=== PATIENT | male | born 1965 | race Caucasian/White ===

== ENCOUNTER 2017-09-07 12:28 | Day surgery (SDC) | payer OTHER ==
[2017-09-07] MEDS ORDERED: LR 1,000 ML IV (12:45)
[2017-09-07] MEDS ORDERED: PROPOFOL 200 MG/20 ML VIAL As Ordered (12:56)
[2017-09-07] MEDS ORDERED: LIDOCAINE 2% INJ 100 MG/5 ML SDV (FOR ANES.) As Ordered (12:59)
[2017-09-07] MEDS ORDERED: MIDAZOLAM INJ 2 MG/2 ML VIAL (J2250) As Ordered (13:53)
[2017-09-07] MEDS ORDERED: fentaNYL 100 MCG/2 ML INJECTION (J3010) As Ordered (13:58)
[2017-09-07] MEDS ORDERED: diphenhydrAMINE INJ 50MG/ML VIAL (J1200) As Ordered (14:10)
== END 2017-09-07 16:20 | disposition home or self-care (01) ==
LOC: M OPP 12:28
DX: Z12.11 Encounter for screening for malignant neoplasm of colon (principal); Z53.9 Procedure and treatment not carried out, unspecified reason

== ENCOUNTER → 2018-01-12 | Outpatient (CLI) | payer OTHER | LOC: M SLEEP 19:42 | DX: G47.33 Obstructive sleep apnea (adult) (pediatric) (principal) | CPT/HCPCS: 95810 ==

== ENCOUNTER 2018-04-20 06:54 | Day surgery (SDC) | payer OTHER ==
[2018-04-20] MEDS: NS 1,000 ML IV (07:10)
[2018-04-20] MEDS ORDERED: MIDAZOLAM INJ 2 MG/2 ML VIAL (J2250) As Ordered ×4 (08:27→08:36)
[2018-04-20] MEDS ORDERED: fentaNYL 100 MCG/2 ML INJECTION (J3010) As Ordered (08:28)
== END 2018-04-20 09:37 | disposition home or self-care (01) ==
LOC: M OPP 06:54
DX: Z12.11 Encounter for screening for malignant neoplasm of colon (principal); K64.0 First degree hemorrhoids; K62.1 Rectal polyp; E78.00 Pure hypercholesterolemia, unspecified; K21.9 Gastro-esophageal reflux disease without esophagitis; R56.9 Unspecified convulsions; M17.0 Bilateral primary osteoarthritis of knee; M06.862 Other specified rheumatoid arthritis, left knee; M06.861 Other specified rheumatoid arthritis, right knee; Z79.82 Long term (current) use of aspirin; Z79.891 Long term (current) use of opiate analgesic; Z79.899 Other long term (current) drug therapy; Z87.891 Personal history of nicotine dependence; Z90.49 Acquired absence of other specified parts of digestive tract
CPT/HCPCS: 45385

== ENCOUNTER 2018-08-07 02:16 | Emergency (ER) | payer OTHER ==
[~2018-08-07] VITALS: Ht 175.3 cm; Wt 93.6 kg
[~2018-08-07 02:16] MED LIST: ACET-683 PO; ASPI81TA85 PO; ATOR80TA59 PO; COLA100C5 PO; ERGO500014 PO; FLUTISP; METH5TA PO; MONT10TA2 PO; NALO4SY IM; OMEP20TA PO; OXYC-517 PO; ROSU40TA3 PO; TEAR1SOL3 OU; TOPI50TA9 PO; VITA100072 PO; VITA200028 PO; ZYRT10CA PO
[2018-08-07] MEDS ORDERED: CETI10TA PO (02:29)
[2018-08-07] MEDS: NORCO, ANEXSIA 5/325MG TABLET (HYDROcodone/ACETAMINOPHEN) PO ONE (04:38)
[2018-08-07] MEDS: PHENobarbital 30 MG TAB PO ONE (04:38)
[2018-08-07 04:41] VITALS: BP 130/69
== END 2018-08-07 04:46 | disposition home or self-care (01) ==
LOC: M ED 02:16
DX: F19.288 Other psychoactive substance dependence with other psychoactive substance-induced disorder (principal); K21.9 Gastro-esophageal reflux disease without esophagitis; E78.5 Hyperlipidemia, unspecified

== ENCOUNTER → 2019-08-15 | Outpatient (CLI) | payer OTHER ==
[~2019-08-15] MED LIST changes: +CETI10TA PO; -ERGO500014 PO; -MONT10TA2 PO; +MONT10TA4 PO; +OMEP-358 PO; -OMEP20TA PO; -ROSU40TA3 PO; +ROSU40TA4 PO; +VITA100018 PO; -VITA100072 PO; +VITA500045 PO
--- NOTE | 2019-08-18 01:01 | ECWPNPC ---
PATIENT NAME: EL LUCAS : 1965 GENDER: MALE VISIT DATE: 08/15/2019 DISCHARGE DATE: 08/15/19 165 VISIT LOCKED DATE TIME: PHYSICIAN: RISHI VAZQUEZ MD RESOURCE: RISHI VAZQUEZ MD REASON FOR APPOINTMENT 1. KNEE PAIN HISTORY OF PRESENT ILLNESS NEW PATIENT CONSULT: WHEN DID YOUR PAIN FIRST START? . BRIEFLY DESCRIBE HOW YOUR PAIN STARTED? . HOW DOES YOUR PAIN CHANGE WITH TIME? . DOES YOUR PAIN AWAKEN YOU FROM SLEEP? . HOW MANY HOURS OF SLEEP DO YOU NORMALLY GET? . ANY DIAGNOSTIC TESTING? . FACILITY WHERE TESTS WERE DONE? ____. PAIN TREATMENT TREATMENT YES CANCER HAVE YOU EVER HAD ANY TYPE OF CANCER?NO NO. 54 YEAR OLD MALE PATIENT WITH A HISTORY OF CHRONIC BILATERAL KNEE PAIN. THE PATIENT DESCRIBES THE PAIN ACHING, BURNING, STABBING, SHOOTING, TENDER, AND CONTINUOUS WITH A PAIN SCORE OF 4-10/10 DEPENDING ON PHYSICAL ACTIVITY. THE PATIENT STATES HE HAS BEEN SUFFERING FROM THIS PAIN FOR MANY YEARS AND HAS HAD 6 RIGHT AND 5 LEFT KNEE SURGERIES DONE IN THE PAST, BUT HIS PAIN PERSISTS. THE PATIENT WAS INFORMED BY HIS SURGEON THAT CURRENTLY THEY SHOULD HOLD OFF ON ANY SURGERIES. THE PATIENT SAYS HIS PAIN IS AFFECTING HIS ABILITY TO MOVE AROUND, CLEAN HIS HOME, AND ENJOY AN ACTIVE LIFESTYLE. THE PATIENT SAYS HIS PAIN INCREASES WITH ACTIVITIES. PATIENT DENIES UNEXPLAINABLE WEIGHT LOSS, FEVER, CHILLS, NEW CHANGES ON HIS URINARY OR BOWEL CONTROL. PAIN SCREENING: PATIENT HAS A COMPLAINT OF ACUTE OR CHRONIC PAIN :YES FALL RISK SCREENING: SCREENING : NO FALLS IN THE PAST YEAR. DELCID INVENTORY: QUESTIONNAIRE ASSESSEDTBD SCORE VALUE CALCULATED TBD CURRENT MEDICATIONS TAKING ACETAMINOPHEN 500 MG CAPSULE 1 CAPSULE NEEDED ORALLY EVERY 6 HRS TAKING ASPIRIN 81 MG TABLET CHEWABLE DIRECTED ORALLY TAKING CARBOXYMETHYLCELLULOSE SOD PF 0.5 % SOLUTION DIRECTED OPHTHALMIC TAKING CETIRIZINE HCL 10 MG TABLET 1 TABLET ORALLY ONCE A DAY TAKING COLACE 100 MG CAPSULE 1 CAPSULE NEEDED ORALLY ONCE A DAY TAKING IRON 325 (65 FE) MG TABLET 1 TABLET ORALLY ONCE A DAY TAKING FLONASE ALLERGY RELIEF 50 MCG/ACT SUSPENSION 1 SPRAY IN EACH NOSTRIL NASALLY ONCE A DAY TAKING OMEPRAZOLE 40 MG CAPSULE DELAYED RELEASE 1 CAPSULE 30 MINUTES BEFORE MORNING MEAL ORALLY ONCE A DAY TAKING OXYCODONE HCL 10 MG TABLET 1 TABLET NEEDED ORALLY EVERY 6 HRS TAKING ROPINIROLE HCL 1 MG TABLET 1 TABLET 1 TO 3 HOURS BEFORE BEDTIME ORALLY ONCE A DAY TAKING ROPINIROLE HCL 2 MG TABLET 1 TABLET 1 TO 3 HOURS BEFORE BEDTIME ORALLY ONCE A DAY TAKING VITAMIN C 250 MG TABLET CHEWABLE 1 TABLET ORALLY ONCE A DAY TAKING ROSUVASTATIN CALCIUM 40 MG TABLET 1 TABLET ORALLY ONCE A DAY MEDICATION LIST REVIEWED AND RECONCILED WITH THE PATIENT PAST MEDICAL HISTORY GERD RESTLESS LEG SYNDROME HIGH CHOLESTEROL BILAT KNEE PAIN BILAT SHOULDER PAIN LUMBOSACRAL OR CERVICAL STRAIN LOW IRON ALLERGIES DULOXETINE HCL: UNSURE - ALLERGY GABAPENTIN: IMPOTENCE - SIDE EFFECTS GEMFIBROZIL: UNSURE - ALLERGY SURGICAL HISTORY RIGHT KNEE REPAIR X6 LEFT KNEE SURGERY X5 RIGHT RIB REMOVED CHOLECYSTECTOMY LEFT BREAST LUMPECTOMY FAMILY HISTORY FATHER: 59 YRS, CVA MOTHER: 35 YRS, INTERNAL BLEEDING 2 BROTHER(S) , 1 SISTER(S) - HEALTHY. 2 SON(S) - HEALTHY. SOCIAL HISTORY GENERAL: TOBACCO USE ARE YOU A:FORMER SMOKER HOW LONG HAS IT BEEN SINCE YOU LAST SMOKED?> 10 YEARS OTHERS AT HOME: SPOUSE. HOUSING: RENTS APARTMENT. EDUCATION LEVEL OF EDUCATION:NOT FINISHED COLLEGE DIET: REGULAR. LANGUAGE LANGUAGES SPOKEN:YORUBA RECREATIONAL DRUG USE DRUG USE?NO LEARNING BARRIERS / SPECIAL NEEDS BARRIERS TO LEARNING?NO HEARING IMPAIRED?NO VISION IMPAIRED?YES :CORRECTIVE LENSES COGNITIVELY IMPAIRED?NO READINESS TO LEARN?YES LEARNING PREFERENCES?NO LEARNING CAPABILITIES PRESENT?YES EMOTIONAL BARRIERS?NO SPECIAL DEVICES?YES :[facility] PFS, CLERGY, PUBLIC HEALTH REFERRALS HAS THE PATIENT BEEN EDUCATED REGARDING HIS/HER PLAN OF CARE?YES HAS THE PATIENT BEEN EDUCATED REGARDING PAIN, THE RISK FOR PAIN, THE IMPORTANCE OF EFFECTIVE PAIN MANAGEMENT, AND THE PAIN ASSESSMENT PROCESS?YES PFS REFERRAL NEEDED?NO CLERGY REFERRAL NEEDED?NO PUBLIC HEALTH REFERRAL NEEDED?NO WAS THE PROVIDER NOTIFIED OF ANY PERTINENT INFO?NO LATEX QUESTIONNAIRE LATEX ALLERGY : HAVE YOU EVER DEVELOPED ANY TYPE OF REACTION AFTER HANDLING LATEX PRODUCTS SUCH RUBBER GLOVES, CONDOMS, DIAPHRAGMS, BALLOONS, SOCKS, OR UNDERWEAR?NO LATEX ALLERGY : HAVE YOU EVER DEVELOPED ANY TYPE OF REACTION DURING OR AFTER DENTAL APPOINTMENT, VAGINAL/RECTAL EXAMINATION, SURGICAL PROCEDURE, OR ANY OTHER EXPOSURE?NO LATEX RISK : HAVE YOU EVER HAD ANY DIFFICULTY BREATHING OR HIVES AFTER EATING OR HANDLING ANY FRUITS, OR VEGETABLES; SUCH KIWI, BANANAS, STONE FRUITS, OR CHESTNUTSNO LATEX RISK : DO YOU HAVE A PREVIOUS PERSONAL HISTORY OF MORE THAN NINE SURGERIES, SPINA BIFIDA, OR REPEATED CATHERIZATIONS? NO LATEX RISK : ARE YOU FREQUENTLY EXPOSED TO LATEX PRODUCTS IN YOUR OCCUPATION?NO DATE ASKED : 08/08/2019 CAFFEINE CAFFEINE USE?YES HOW OFTEN AND HOW MUCH? 2/DAY COKE ADVANCE DIRECTIVE ADVANCE DIRECTIVE DISCUSSED WITH PATIENT:YES DECLINED TENRIISM [id number] YARSANISM MARITAL STATUS: . ALCOHOL SCREENING DID YOU HAVE A DRINK CONTAINING ALCOHOL IN THE PAST YEAR?NO POINTS0 INTERPRETATIONNEGATIVE OCCUPATION: DISABLED. PRE-SCREENING CALL DONE. 08/08/19 EM. HOSPITALIZATION/MAJOR DIAGNOSTIC PROCEDURE SURGERIES REVIEW OF SYSTEMS REVIEWED BY: PROVIDER: RISHI VAZQUEZ MD . CONSTITUTIONAL: ANY CHANGE IN YOUR MEDICAL CONDITION? NO . CHILLS NO . FEVER NO . INFECTION: DO YOU HAVE NEW INFECTIONS? NO . DO YOU HAVE HISTORY OF MRSA? NO . MUSCULOSKELETAL: ANY NEW PATTERNS OF PAIN OR NUMBNESS? NO . SYTEMIC LUPUS NO . GASTROENTEROLOGY: ANY NEW CHANGE IN BOWEL CONTROL? NO . BARRETTS ESOPHAGUS NO . CIRRHOSIS NO . HEPATITIS NO . LIVER FAILURE NO . ACID REFLUX YES . UNEXPLAINED WEIGHT LOSS NO . GENITOURINARY: ANY NEW CHANGE IN BLADDER CONTROL? NO . IS THERE A CHANCE YOU COULD BE ? NO . HEMATOLOGY/LYMPH: DO YOU TAKE ANY BLOOD THINNERS? (FOR EXAMPLE- COUMADIN, PLAVIX, AGGRENOX, PLATEL, PRADAXA, OR XARELTO) NO . WHEN WAS YOUR LAST DOSE? DATE: TIME: . LOW PLATELET COUNT NO . SICKLE CELL DISEASE NO . VON WILLIEBRANDS NO . FACTOR V LEIDEN NO . THALLASEMIA NO . ANEMIA NO . EASY BRUISING NO . NEUROLOGY: HAVE YOU FALLEN IN THE PAST 12 MONTHS? NO . ANY NEW EXTREMITY NUMBNESS OR WEAKNESS? NO . HEAD INJURY NO . DEMENTIA NO . CEREBRAL PALSY NO . MULTIPLE SCLEROSIS NO . DIZZINESS NO . HEADACHE NO . STROKES NO . VERTIGO NO . CARDIOLOGY: DO YOU HAVE A PACEMAKER OR DEFIBRILLATOR? NO . ANGINA NO . HEART ATTACK NO . HEART SURGERY NO . CONGESTIVE HEART FAILURE/FLUID OVERLOAD NO . CHEST PAIN NO . HIGH BLOOD PRESSURE NO . IRREGULAR HEART BEAT NO . RESPIRATORY: HAVE YOU BEEN SICK IN THE PAST WEEK? NO . FEVER NO . FLU LIKE SYMPTOMS? NO . CPAP NO . BYPAP NO . ASTHMA NO . EMPHYSEMA NO . CHRONIC LUNG DISEASES NO . SHORTNESS OF BREATH ON EXERTION NO . DO YOU USE ANY TYPE OF TOBACCO (SMOKE, SMOKELESS, CHEW)? NO . COUGH NO . SNORING NO . INTEGUMENTARY: DO YOU HAVE ANY RASHES OR OPEN SORES? NO . ALLERGIC/IMMUNO: ARE YOU ALLERGIC TO IV DYE? NO . ANY NEW ALLERGIES? NO . PSYCHIATRIC: DO YOU HAVE THOUGHTS OF HURTING YOURSELF OR SOMEONE ELSE? NO . ARE YOU ABUSED, NEGLECTED, OR IN AN UNSAFE ENVIRONMENT? NO . ENDOCRINOLOGY: ARE YOU DIABETIC? NO . THYROID DISORDER NO . OTHER: DO YOU NEED ANY PRESCRIPTIONS? NO . IF YES, PLEASE LIST: ____ . ANY NEW PROBLEMS WITH YOUR MEDICATIONS? NO . WHEN DID YOU LAST EAT? ____ . WHEN DID YOU LAST DRINK? ____ . WHAT DID YOU LAST DRINK? ____ . NAME OF PERSON DRIVING YOU HOME? ____ . DO YOU HAVE ANY OTHER QUESTIONS OR CONCERNS NO . VITAL SIGNS WT 210.2 LBS, HT 59 IN, BMI 42.45 INDEX, BP 118/67 MM HG, HR 76 /MIN, RR 18 /MIN, TEMP 98.6 F, OXYGEN SAT % 97%, NA INITIALS [id number], REVIEWED BY: GEORGE. EXAMINATION GENERAL EXAMINATION: PATIENT IS ALERT O X 3 AND COOPERATIVE. LUNGS CLEAR, TO AUSCULTATION. HEART: NO MURMURS OR GALLOPS; FACIAL CRANIAL NERVES ARE GROSSLY NORMAL. GOOD SYMMETRY OF FACIAL MUSCLE MOVEMENT. NORMAL VISUAL LUQUE. PATIENT IS USING A CANE TO AMBULATE, WHICH HE HOLDS IN HIS RIGHT HAND. WALK IS ANTALGIC. PATIENT IS LIMPING FROM HIS RIGHT LEG. HYPERPATHIA OVER BOTH KNEES. TWO-INCH SURGICAL SCAR PRESENT OVER THE FRONT OF RIGHT KNEE AND 2.5-INCH SURGICAL SCAR OVER FRONT OF LEFT KNEE. CREPITANCE WITH MOVEMENT OF BOTH KNEES. MRI OF LEFT KNEE DONE ON 02/23/2019 SHOWS CHONDROMALACIA AND JOINT EFFUSION. ASSESSMENTS OTHER CHRONIC PAIN - G89.29 (PRIMARY) PAIN IN RIGHT KNEE - M25.561 PAIN IN LEFT KNEE - M25.562 OSTEOARTHRITIS OF BOTH KNEES, UNSPECIFIED OSTEOARTHRITIS TYPE - M17.0 TREATMENT OTHER CHRONIC PAIN [facility] MRI KNEE WITHOUT [id number] CLINICAL NOTES: WE DISCUSSED SEVERAL ISSUES WITH MR. LUCAS'S PAIN MANAGEMENT CASE. I DISCUSSED WITH THE PATIENT THAT HE IS A CANDIDATE FOR COOL RADIOFREQUENCY IN THE FUTURE. FOR NOW, I WILL ORDER FOR A RIGHT KNEE MRI TO BE DONE IN PREPARATION FOR THE COOL RADIOFREQUENCY, SINCE THE PATIENT HAS NOT HAD ANY RECENT STUDIES DONE FOR THE RIGHT KNEE. THE PATIENT WILL FOLLOW UP WITH ME IN 6 WEEKS TO GO OVER THE MRI RESULTS AND DISCUSS FURTHER OPTIONS. INSTRUCTIONS WERE GIVEN, QUESTIONS WERE ANSWERED, PATIENT REPORTS UNDERSTANDING AND AGREES WITH THE PLAN. I, DARYA ALMONTE, DOCUMENTED THE ABOVE INFORMATION ACTING A SCRIBE FOR DR. VAZQUEZ. I HAVE REVIEWED THE ABOVE DOCUMENT, WRITTEN BY DARYA ALMONTE SCRIBCiaran AND I VERIFY THAT IT IS ACCURATE. DEAR DR. AMIN: THANK YOU FOR YOUR KIND REFERRAL OF EL LUCAS. IF YOU WANT TO DISCUSS HIS CASE WITH ME PLEASE CALL ME AT THE PAIN CENTER AT [phone]. SINCERELY, RISHI VAZQUEZ MD PAIN MEDICINE . PAIN IN RIGHT KNEE [facility] MRI KNEE WITHOUT [id number] PROCEDURE CODES FA211 ESTABILISHED PATIENT [facility] FACILITY CHARGE G8427 CURRENT MEDS W/DOSAGES DOCUMENTED G8730 PAIN ASSESS POS TOOL F/U PLAN DOC DISPOSITION & COMMUNICATION FOLLOW UP 6 WEEKS (REASON: ORDER RT KNEE MRI, PT CANDIDATE FOR COOL RF, F/UP WITH DR Garcia) ELECTRONICALLY SIGNED BY RISHI VAZQUEZ MD, MD ON 08/17/2019 AT 03:23 PM EST DISCLAIMER : THIS IS A VISIT SUMMARY EXTRACTED FROM THE [employer] CHART. IT IS NOT A COPY OF THE [employer] PROGRESS NOTE. [email or web address]
== END ==
LOC: M PAIN 14:00
PROVIDERS: ATTEND Anesthesiology
DX: G89.29 Other chronic pain (principal); M25.561 Pain in right knee; M25.562 Pain in left knee; M17.0 Bilateral primary osteoarthritis of knee

== ENCOUNTER → 2019-08-25 | Outpatient (CLI) | payer OTHER ==
--- NOTE | 2019-08-25 17:30 | REP ---
MRI right knee without contrast: History: Right knee pain. Comparison radiographs October 13, 2005. Technique: Axial, coronal and sagittal imaging planes are utilized. Proton density and T2-weighted scans are obtained with and without fat saturation in the usual fashion. MRI findings: There is a small subcortical cyst in the lateral tibial plateau 5 mm in diameter. Cortical and medullary bone signal intensity are otherwise normal. There are large spurs at the superior and inferior pole of the patella at the quadriceps and patellar tendon insertion sites respectively consistent with chronic patellar and quadriceps tendonitis. The patellar tendon is diffusely thickened although it shows homogeneous low T1 and T2-weighted signal. There is some edema in the prepatellar tendon soft tissues. There is a very small Calvin's cyst and a small joint effusion is seen in the right knee. Medial and lateral patellar retinacula structures appear intact. There is moderate chondromalacia patella diffusely. A fairly shallow femoral trochlear notch is seen. There is also moderate chondromalacia in the tibial plateau medially and laterally and to a slightly lesser extent in the medial and lateral femoral condyles. No medial or lateral meniscal tear is seen. Anterior and posterior cruciate ligaments appear intact. There is no evidence of medial or lateral collateral ligament disruption. Impression: Moderate three compartment chondromalacia. Most pronounced in the patellofemoral compartment. Shallow femoral trochlear groove. Small joint effusion and Calvin's cyst. There is evidence of chronic quadriceps and patellar tendonitis tendinosis. Osteoarthritic spurring on the patella. Electronically Signed by Hill Lopez MD 08/26/2019 02:23 P
== END ==
LOC: M RAD 15:32
PROVIDERS: ATTEND Anesthesiology
DX: M25.561 Pain in right knee (principal)

== ENCOUNTER → 2019-09-12 | Outpatient (CLI) | payer OTHER ==
--- NOTE | 2019-09-21 00:44 | ECWPNPC ---
PATIENT NAME: EL LUCAS : 1965 GENDER: MALE VISIT DATE: 09/12/2019 DISCHARGE DATE: 09/12/19 1509 VISIT LOCKED DATE TIME: PHYSICIAN: RISHI VAZQUEZ MD RESOURCE: RISHI VAZQUEZ MD REASON FOR APPOINTMENT 1. REVIEW MRI KNEE HISTORY OF PRESENT ILLNESS HISTORY OF PRESENT ILLNESS: PAIN THE PATIENT DESCRIBES THE PAIN... PERMISSION FROM PATIENT WAS RECEIVED TO DO TELEPHONE OFFICE VISITS. 54 YEAR OLD MALE PATIENT WITH A HISTORY OF CHRONIC BILATERAL KNEE PAIN. THE PATIENT DESCRIBES HIS PAIN IT COMES AND GOES, SHARP, STABBING, TENDER WITH A PAIN SCORE OF 7-10/10 DEPENDING ON PHYSICAL ACTIVITY. 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 THE PATIENT SAYS HE HAS HAD SIX RIGHT KNEE AND FIVE LEFT KNEE SURGERIES DONE IN THE PAST, BUT HIS PAIN PERSISTS. THE PATIENT STATES HIS SURGEON SUGGESTED HE TRIES COOL RADIOFREQUENCY FOR HIS BILATERAL KNEE PAIN. PATIENT DENIES UNEXPLAINABLE WEIGHT LOSS, FEVER, CHILLS, NEW CHANGES ON HIS URINARY OR BOWEL CONTROL. FALL RISK SCREENING: SCREENING :NO FALLS REPORTED IN THE LAST YEAR CURRENT MEDICATIONS TAKING ACETAMINOPHEN 500 MG CAPSULE 1 CAPSULE NEEDED ORALLY EVERY 6 HRS TAKING ASPIRIN 81 MG TABLET CHEWABLE DIRECTED ORALLY TAKING CARBOXYMETHYLCELLULOSE SOD PF 0.5 % SOLUTION DIRECTED OPHTHALMIC TAKING CETIRIZINE HCL 10 MG TABLET 1 TABLET ORALLY ONCE A DAY TAKING COLACE 100 MG CAPSULE 1 CAPSULE NEEDED ORALLY ONCE A DAY TAKING IRON 325 (65 FE) MG TABLET 1 TABLET ORALLY ONCE A DAY TAKING FLONASE ALLERGY RELIEF 50 MCG/ACT SUSPENSION 1 SPRAY IN EACH NOSTRIL NASALLY ONCE A DAY TAKING OMEPRAZOLE 40 MG CAPSULE DELAYED RELEASE 1 CAPSULE 30 MINUTES BEFORE MORNING MEAL ORALLY ONCE A DAY TAKING OXYCODONE HCL 10 MG TABLET 1 TABLET NEEDED ORALLY EVERY 6 HRS TAKING ROPINIROLE HCL 1 MG TABLET 1 TABLET 1 TO 3 HOURS BEFORE BEDTIME ORALLY ONCE A DAY TAKING ROPINIROLE HCL 2 MG TABLET 1 TABLET 1 TO 3 HOURS BEFORE BEDTIME ORALLY ONCE A DAY TAKING VITAMIN C 250 MG TABLET CHEWABLE 1 TABLET ORALLY ONCE A DAY TAKING ROSUVASTATIN CALCIUM 40 MG TABLET 1 TABLET ORALLY ONCE A DAY MEDICATION LIST REVIEWED AND RECONCILED WITH THE PATIENT PAST MEDICAL HISTORY GERD RESTLESS LEG SYNDROME HIGH CHOLESTEROL BILAT KNEE PAIN BILAT SHOULDER PAIN LUMBOSACRAL OR CERVICAL STRAIN LOW IRON ALLERGIES DULOXETINE HCL: UNSURE - ALLERGY GABAPENTIN: IMPOTENCE - SIDE EFFECTS GEMFIBROZIL: UNSURE - ALLERGY SURGICAL HISTORY RIGHT KNEE REPAIR X6 LEFT KNEE SURGERY X5 RIGHT RIB REMOVED CHOLECYSTECTOMY LEFT BREAST LUMPECTOMY FAMILY HISTORY FATHER: 59 YRS, CVA MOTHER: 35 YRS, INTERNAL BLEEDING 2 BROTHER(S) , 1 SISTER(S) - HEALTHY. 2 SON(S) - HEALTHY. SOCIAL HISTORY GENERAL: TOBACCO USE ARE YOU A:FORMER SMOKER HOW LONG HAS IT BEEN SINCE YOU LAST SMOKED?> 10 YEARS OTHERS AT HOME: SPOUSE. HOUSING: RENTS APARTMENT. EDUCATION LEVEL OF EDUCATION:NOT FINISHED COLLEGE DIET: REGULAR. LANGUAGE LANGUAGES SPOKEN:NIUEAN NEW PATIENT PAIN DIARY PATIENT DESCRIBES PAIN :IT COMES AND GOES, SHARP, STABBING, TENDER FROM 0-10, WHAT LEVEL IS YOUR PAIN TODAY?7 PRECIPITATING FACTORS ACTIVITY OR WHEN STANDING RECREATIONAL DRUG USE DRUG USE?NO LEARNING BARRIERS / SPECIAL NEEDS BARRIERS TO LEARNING?NO HEARING IMPAIRED?NO VISION IMPAIRED?YES COGNITIVELY IMPAIRED?NO :CORRECTIVE LENSES READINESS TO LEARN?YES LEARNING PREFERENCES?NO LEARNING CAPABILITIES PRESENT?YES EMOTIONAL BARRIERS?NO SPECIAL DEVICES?YES :[facility] PFS, CLERGY, PUBLIC HEALTH REFERRALS HAS THE PATIENT BEEN EDUCATED REGARDING HIS/HER PLAN OF CARE?YES HAS THE PATIENT BEEN EDUCATED REGARDING PAIN, THE RISK FOR PAIN, THE IMPORTANCE OF EFFECTIVE PAIN MANAGEMENT, AND THE PAIN ASSESSMENT PROCESS?YES LATEX QUESTIONNAIRE LATEX ALLERGY : HAVE YOU EVER DEVELOPED ANY TYPE OF REACTION AFTER HANDLING LATEX PRODUCTS SUCH RUBBER GLOVES, CONDOMS, DIAPHRAGMS, BALLOONS, SOCKS, OR UNDERWEAR?NO LATEX ALLERGY : HAVE YOU EVER DEVELOPED ANY TYPE OF REACTION DURING OR AFTER DENTAL APPOINTMENT, VAGINAL/RECTAL EXAMINATION, SURGICAL PROCEDURE, OR ANY OTHER EXPOSURE?NO DATE ASKED : 08/08/2019 LATEX RISK : HAVE YOU EVER HAD ANY DIFFICULTY BREATHING OR HIVES AFTER EATING OR HANDLING ANY FRUITS, OR VEGETABLES; SUCH KIWI, BANANAS, STONE FRUITS, OR CHESTNUTSNO LATEX RISK : DO YOU HAVE A PREVIOUS PERSONAL HISTORY OF MORE THAN NINE SURGERIES, SPINA BIFIDA, OR REPEATED CATHERIZATIONS? NO LATEX RISK : ARE YOU FREQUENTLY EXPOSED TO LATEX PRODUCTS IN YOUR OCCUPATION?NO CAFFEINE CAFFEINE USE?YES HOW OFTEN AND HOW MUCH? 2/DAY COKE ADVANCE DIRECTIVE ADVANCE DIRECTIVE DISCUSSED WITH PATIENT:YES DECLINED MANDAEN [id number] TAOIST MARITAL STATUS: . ALCOHOL SCREENING DID YOU HAVE A DRINK CONTAINING ALCOHOL IN THE PAST YEAR?NO POINTS0 INTERPRETATIONNEGATIVE OCCUPATION: DISABLED. PRE-SCREENING CALL DONE. 08/08/19 EM. HOSPITALIZATION/MAJOR DIAGNOSTIC PROCEDURE SURGERIES REVIEW OF SYSTEMS REVIEWED BY: PROVIDER: RISHI VAZQUEZ MD . CONSTITUTIONAL: ANY CHANGE IN YOUR MEDICAL CONDITION? NO . CHILLS NO . FEVER NO . INFECTION: DO YOU HAVE NEW INFECTIONS? NO . DO YOU HAVE HISTORY OF MRSA? NO . MUSCULOSKELETAL: ANY NEW PATTERNS OF PAIN OR NUMBNESS? NO . GASTROENTEROLOGY: ANY NEW CHANGE IN BOWEL CONTROL? NO . GENITOURINARY: ANY NEW CHANGE IN BLADDER CONTROL? NO . IS THERE A CHANCE YOU COULD BE ? NO . HEMATOLOGY/LYMPH: DO YOU TAKE ANY BLOOD THINNERS? (FOR EXAMPLE- COUMADIN, PLAVIX, AGGRENOX, PLATEL, PRADAXA, OR XARELTO) NO . WHEN WAS YOUR LAST DOSE? DATE: TIME: . NEUROLOGY: HAVE YOU FALLEN IN THE PAST 12 MONTHS? NO . ANY NEW EXTREMITY NUMBNESS OR WEAKNESS? NO . CARDIOLOGY: DO YOU HAVE A PACEMAKER OR DEFIBRILLATOR? NO . RESPIRATORY: HAVE YOU BEEN SICK IN THE PAST WEEK? NO . FEVER NO . FLU LIKE SYMPTOMS? NO . COUGH NO . INTEGUMENTARY: DO YOU HAVE ANY RASHES OR OPEN SORES? NO . ALLERGIC/IMMUNO: ARE YOU ALLERGIC TO IV DYE? NO . ANY NEW ALLERGIES? NO . PSYCHIATRIC: DO YOU HAVE THOUGHTS OF HURTING YOURSELF OR SOMEONE ELSE? NO . ARE YOU ABUSED, NEGLECTED, OR IN AN UNSAFE ENVIRONMENT? NO . ENDOCRINOLOGY: ARE YOU DIABETIC? NO . OTHER: DO YOU NEED ANY PRESCRIPTIONS? NO . IF YES, PLEASE LIST: ____ . ANY NEW PROBLEMS WITH YOUR MEDICATIONS? NO . WHEN DID YOU LAST EAT? ____ . WHEN DID YOU LAST DRINK? ____ . WHAT DID YOU LAST DRINK? ____ . NAME OF PERSON DRIVING YOU HOME? ____ . DO YOU HAVE ANY OTHER QUESTIONS OR CONCERNS NO . EXAMINATION GENERAL EXAMINATION: TELEMEDICINE VISIT. MRI OF THE RIGHT KNEE DONE ON 08/25/2019 SHOWS ARTHRITIS AND COPELAND'S CYST. ASSESSMENTS PAIN IN RIGHT KNEE - M25.561 (PRIMARY) PAIN IN LEFT KNEE - M25.562 OTHER CHRONIC PAIN - G89.29 BILATERAL PRIMARY OSTEOARTHRITIS OF KNEE - M17.0 STATUS POST KNEE SURGERY - Z98.890 TREATMENT PAIN IN RIGHT KNEE CLINICAL NOTES: WE DISCUSSED SEVERAL ISSUES WITH MR. LUCAS'S PAIN MANAGEMENT CASE. I DISCUSSED WITH THE PATIENT ABOUT TRYING DIAGNOSTIC BLOCK'S TO CONSIDER COOL RADIOFREQUENCY ABLATION IN THE FUTURE AT THE KNEES. THE PATIENT WILL FOLLOW UP WITH THE NURSE PRACTITIONER IN 2 MONTHS. I WILL REQUEST FOR A COPY OF THE PATIENT'S LEFT KNEE MRI DONE AT THE [facility]. THE TOTAL TELEPHONE VISIT TIME WAS 7 MINUTES. INSTRUCTIONS WERE GIVEN, QUESTIONS WERE ANSWERED, PATIENT REPORTS UNDERSTANDING AND AGREES WITH THE PLAN. I, DARYA ALMONTE, DOCUMENTED THE ABOVE INFORMATION ACTING A SCRIBE FOR DR. VAZQUEZ. I HAVE REVIEWED THE ABOVE DOCUMENT, WRITTEN BY DARYA ALMONTE SCRIBE AND I VERIFY THAT IT IS ACCURATE. . DISPOSITION & COMMUNICATION FOLLOW UP 2 MONTHS (REASON: F/UP WITH FOUR H AGENT IN 2MTHS; COOL RF CANDIDATE--WILL RQST DIAGNOSTIC TESTS IN FUTURE) ELECTRONICALLY SIGNED BY RISHI VAZQUEZ MD, MD ON 09/20/2019 AT 05:21 PM EDT DISCLAIMER : THIS IS A VISIT SUMMARY EXTRACTED FROM THE [employer] CHART. IT IS NOT A COPY OF THE [employer] PROGRESS NOTE. KIRILL
== END ==
LOC: M PAIN 14:00
PROVIDERS: ATTEND Anesthesiology
DX: M25.561 Pain in right knee (principal); M25.562 Pain in left knee; G89.29 Other chronic pain; M17.0 Bilateral primary osteoarthritis of knee; Z98.890 Other specified postprocedural states; Z79.82 Long term (current) use of aspirin; Z79.891 Long term (current) use of opiate analgesic; Z79.899 Other long term (current) drug therapy; Z87.891 Personal history of nicotine dependence; Z88.8 Allergy status to other drugs, medicaments and biological substances

== ENCOUNTER → 2019-10-30 | Outpatient (CLI) | payer OTHER ==
--- NOTE | 2019-11-01 01:16 | ECWPNPC ---
PATIENT NAME: EL LUCAS : 1965 GENDER: MALE VISIT DATE: 10/30/2019 DISCHARGE DATE: 10/30/19 1333 VISIT LOCKED DATE TIME: PHYSICIAN: GABE BRAVO RESOURCE: GABE BRAVO REASON FOR APPOINTMENT 1. F/UP WITH MANAGER RADIATION IN 2MTHS; COOL RF CANDIDATE--WILL RQST DIAGNOSTIC TESTS IN FUTURE HISTORY OF PRESENT ILLNESS HISTORY OF PRESENT ILLNESS: PAIN THE PATIENT DESCRIBES THE PAINDURING THE LAST MONTH SEVERITY - PAIN SCORE OF5/10 LOCATIONS BOTH KNEES QUALITYACHING , BURNING, SHARP, STABBING, TENDER, THROBBING, SORE, SHOOTING DURATIONCONTINUOUS, CONSTANT, ALL DAY PAIN IS INCREASED BY:ACTIVITIES, PROLONGED STANDING PAIN IS DECREASED BY:USE OF PAIN MEDICATIONS 84-YEAR-OLD MALE IN FOR CHRONIC PAIN FOLLOW-UP. PATIENT HAS A HISTORY OF BILATERAL KNEE PAIN AND IS A CANDIDATE FOR THE COOL RF PROCEDURE. HE RATES HIS PAIN CURRENTLY AT A 5 OUT OF 10 AND DESCRIBES IT ACHING, BURNING, SHARP, STABBING, TENDER, THROBBING, SORE, AND SHOOTING. FALL RISK SCREENING: SCREENING :NO FALLS REPORTED IN THE LAST YEAR CURRENT MEDICATIONS TAKING ACETAMINOPHEN 500 MG CAPSULE 1 CAPSULE NEEDED ORALLY EVERY 6 HRS TAKING ASPIRIN 81 MG TABLET CHEWABLE DIRECTED ORALLY TAKING CARBOXYMETHYLCELLULOSE SOD PF 0.5 % SOLUTION DIRECTED OPHTHALMIC TAKING CETIRIZINE HCL 10 MG TABLET 1 TABLET ORALLY ONCE A DAY TAKING COLACE 100 MG CAPSULE 1 CAPSULE NEEDED ORALLY ONCE A DAY TAKING IRON 325 (65 FE) MG TABLET 1 TABLET ORALLY ONCE A DAY TAKING FLONASE ALLERGY RELIEF 50 MCG/ACT SUSPENSION 1 SPRAY IN EACH NOSTRIL NASALLY ONCE A DAY TAKING OMEPRAZOLE 40 MG CAPSULE DELAYED RELEASE 1 CAPSULE 30 MINUTES BEFORE MORNING MEAL ORALLY ONCE A DAY TAKING OXYCODONE HCL 10 MG TABLET 1 TABLET NEEDED ORALLY EVERY 6 HRS TAKING ROPINIROLE HCL 1 MG TABLET 1 TABLET 1 TO 3 HOURS BEFORE BEDTIME ORALLY ONCE A DAY TAKING ROPINIROLE HCL 2 MG TABLET 1 TABLET 1 TO 3 HOURS BEFORE BEDTIME ORALLY ONCE A DAY TAKING VITAMIN C 250 MG TABLET CHEWABLE 1 TABLET ORALLY ONCE A DAY TAKING ROSUVASTATIN CALCIUM 40 MG TABLET 1 TABLET ORALLY ONCE A DAY MEDICATION LIST REVIEWED AND RECONCILED WITH THE PATIENT PAST MEDICAL HISTORY GERD RESTLESS LEG SYNDROME HIGH CHOLESTEROL BILAT KNEE PAIN BILAT SHOULDER PAIN LUMBOSACRAL OR CERVICAL STRAIN LOW IRON ALLERGIES DULOXETINE HCL: UNSURE - ALLERGY GABAPENTIN: IMPOTENCE - SIDE EFFECTS GEMFIBROZIL: UNSURE - ALLERGY SURGICAL HISTORY RIGHT KNEE REPAIR X6 LEFT KNEE SURGERY X5 RIGHT RIB REMOVED CHOLECYSTECTOMY LEFT BREAST LUMPECTOMY FAMILY HISTORY FATHER: 59 YRS, CVA MOTHER: 35 YRS, INTERNAL BLEEDING 2 BROTHER(S) , 1 SISTER(S) - HEALTHY. 2 SON(S) - HEALTHY. SOCIAL HISTORY GENERAL: TOBACCO USE ARE YOU A:FORMER SMOKER HOW LONG HAS IT BEEN SINCE YOU LAST SMOKED?> 10 YEARS LATEX QUESTIONNAIRE LATEX ALLERGY : HAVE YOU EVER DEVELOPED ANY TYPE OF REACTION AFTER HANDLING LATEX PRODUCTS SUCH RUBBER GLOVES, CONDOMS, DIAPHRAGMS, BALLOONS, SOCKS, OR UNDERWEAR?NO LATEX ALLERGY : HAVE YOU EVER DEVELOPED ANY TYPE OF REACTION DURING OR AFTER DENTAL APPOINTMENT, VAGINAL/RECTAL EXAMINATION, SURGICAL PROCEDURE, OR ANY OTHER EXPOSURE?NO DATE ASKED : 08/08/2019 LATEX RISK : HAVE YOU EVER HAD ANY DIFFICULTY BREATHING OR HIVES AFTER EATING OR HANDLING ANY FRUITS, OR VEGETABLES; SUCH KIWI, BANANAS, STONE FRUITS, OR CHESTNUTSNO LATEX RISK : DO YOU HAVE A PREVIOUS PERSONAL HISTORY OF MORE THAN NINE SURGERIES, SPINA BIFIDA, OR REPEATED CATHERIZATIONS? NO LATEX RISK : ARE YOU FREQUENTLY EXPOSED TO LATEX PRODUCTS IN YOUR OCCUPATION?NO ALCOHOL SCREENING DID YOU HAVE A DRINK CONTAINING ALCOHOL IN THE PAST YEAR?NO POINTS0 INTERPRETATIONNEGATIVE RECREATIONAL DRUG USE DRUG USE?NO CAFFEINE CAFFEINE USE?YES HOW OFTEN AND HOW MUCH? 2/DAY COKE [employer] [id number] EPISCOPAL LANGUAGE LANGUAGES SPOKEN:SCOTTISH EDUCATION LEVEL OF EDUCATION:NOT FINISHED COLLEGE LEARNING BARRIERS / SPECIAL NEEDS BARRIERS TO LEARNING?NO HEARING IMPAIRED?NO VISION IMPAIRED?YES COGNITIVELY IMPAIRED?NO :CORRECTIVE LENSES READINESS TO LEARN?YES LEARNING PREFERENCES?NO LEARNING CAPABILITIES PRESENT?YES EMOTIONAL BARRIERS?NO SPECIAL DEVICES?YES :CANE OCCUPATION: DISABLED. DIET: REGULAR. MARITAL STATUS: . OTHERS AT HOME: SPOUSE. NEW PATIENT PAIN DIARY PATIENT DESCRIBES PAIN :IT COMES AND GOES, SHARP, STABBING, TENDER FROM 0-10, WHAT LEVEL IS YOUR PAIN TODAY?7 PRECIPITATING FACTORS ACTIVITY OR WHEN STANDING PAIN CLINIC PFS, CLERGY, PUBLIC HEALTH REFERRALS HAS THE PATIENT BEEN EDUCATED REGARDING HIS/HER PLAN OF CARE?YES HAS THE PATIENT BEEN EDUCATED REGARDING PAIN, THE RISK FOR PAIN, THE IMPORTANCE OF EFFECTIVE PAIN MANAGEMENT, AND THE PAIN ASSESSMENT PROCESS?YES HOUSING: RENTS APARTMENT. ADVANCE DIRECTIVE ADVANCE DIRECTIVE DISCUSSED WITH PATIENT:YES DECLINED PRE-SCREENING CALL DONE. 08/08/19 EM. HOSPITALIZATION/MAJOR DIAGNOSTIC PROCEDURE SURGERIES REVIEW OF SYSTEMS REVIEWED BY: PROVIDER: SARAH PAINTER . CONSTITUTIONAL: ANY CHANGE IN YOUR MEDICAL CONDITION? NO . CHILLS NO . FEVER NO . INFECTION: DO YOU HAVE NEW INFECTIONS? NO . DO YOU HAVE HISTORY OF MRSA? NO . MUSCULOSKELETAL: ANY NEW PATTERNS OF PAIN OR NUMBNESS? NO . GASTROENTEROLOGY: ANY NEW CHANGE IN BOWEL CONTROL? NO . GENITOURINARY: ANY NEW CHANGE IN BLADDER CONTROL? NO . IS THERE A CHANCE YOU COULD BE ? NO . HEMATOLOGY/LYMPH: DO YOU TAKE ANY BLOOD THINNERS? (FOR EXAMPLE- COUMADIN, PLAVIX, AGGRENOX, PLATEL, PRADAXA, OR XARELTO) NO . WHEN WAS YOUR LAST DOSE? DATE: TIME: . NEUROLOGY: HAVE YOU FALLEN IN THE PAST 12 MONTHS? NO . ANY NEW EXTREMITY NUMBNESS OR WEAKNESS? NO . CARDIOLOGY: DO YOU HAVE A PACEMAKER OR DEFIBRILLATOR? NO . RESPIRATORY: HAVE YOU BEEN SICK IN THE PAST WEEK? NO . FEVER NO . FLU LIKE SYMPTOMS? NO . COUGH NO . INTEGUMENTARY: DO YOU HAVE ANY RASHES OR OPEN SORES? NO . ALLERGIC/IMMUNO: ARE YOU ALLERGIC TO IV DYE? NO . ANY NEW ALLERGIES? NO . PSYCHIATRIC: DO YOU HAVE THOUGHTS OF HURTING YOURSELF OR SOMEONE ELSE? NO . ARE YOU ABUSED, NEGLECTED, OR IN AN UNSAFE ENVIRONMENT? NO . ENDOCRINOLOGY: ARE YOU DIABETIC? NO . OTHER: DO YOU NEED ANY PRESCRIPTIONS? NO . IF YES, PLEASE LIST: ____ . ANY NEW PROBLEMS WITH YOUR MEDICATIONS? NO . WHEN DID YOU LAST EAT? ____ . WHEN DID YOU LAST DRINK? ____ . WHAT DID YOU LAST DRINK? ____ . NAME OF PERSON DRIVING YOU HOME? ____ . DO YOU HAVE ANY OTHER QUESTIONS OR CONCERNS NO . VITAL SIGNS WT 210.2 LBS, HT 59 IN, BMI 42.45 INDEX, BP 130/66 MM HG, HR 79 /MIN, RR 18 /MIN, TEMP 97.1 F, OXYGEN SAT % 98%, NA INITIALS AW 1252. EXAMINATION GENERAL EXAMINATION: GENERALNO ACUTE DISTRESS, WELL NOURISHED AND HYDRATED. PSYCHAPPROPRIATE MOOD AND AFFECT . LUNGS:CLEAR TO AUSCULTATION BILATERALLY, NO WHEEZES, RHONCHI, RALES. HEART:NO MURMURS, REGULAR RATE AND RHYTHM. MUSCULOSKELETAL:POINT TENDER OVER PATELLA BILATERALLY, SURROUNDING SKIN SHOWS NO ERYTHEMA, ECCHYMOSIS, INCREASED WARMTH, AND/OR SKIN ERUPTIONS NOTED. PATIENT DOES ENDORSE INCREASED PAIN WITH RANGE OF MOTION OF THE KNEES BILATERALLY . ASSESSMENTS PAIN IN RIGHT KNEE - M25.561 (PRIMARY) PAIN IN LEFT KNEE - M25.562 TREATMENT PAIN IN RIGHT KNEE CLINICAL NOTES: 54-YEAR-OLD MALE IN FOR CHRONIC PAIN FOLLOW-UP. GIVEN PRESENTING SYMPTOMS AND CONSULTATION WITH DR. VAZQUEZ PATIENT WILL SEE DR. VAZQUEZ IN 2 WEEKS TO DISCUSS COOL RF PROCEDURE. PATIENT TO BRING IN RECENT MRI OF HIS LEFT KNEE THAT WAS DONE AT THE [facility] FOR REVIEW BY DR. VAZQUEZ. PATIENT HAS EXPRESSED UNDERSTANDING OF AND WAS IN AGREEMENT WITH TREATMENT PLAN. GIVEN TIME TO ASK QUESTIONS AND EXPRESS CONCERNS. PROCEDURE CODES FA211 ESTABILISHED PATIENT [facility] CHARGE DISPOSITION & COMMUNICATION FOLLOW UP DR. VAZQUEZ (REASON: RIGHT AND LEFT KNEE PAIN) ELECTRONICALLY SIGNED BY JAYSON CRUZ ON 10/31/2019 AT 08:21 AM EDT DISCLAIMER : THIS IS A VISIT SUMMARY EXTRACTED FROM THE [employer] CHART. IT IS NOT A COPY OF THE [employer] PROGRESS NOTE. KIRILL
== END ==
LOC: M PAIN 13:00
PROVIDERS: ATTEND Family Medicine
DX: M25.561 Pain in right knee (principal); M25.562 Pain in left knee; Z79.82 Long term (current) use of aspirin; Z79.891 Long term (current) use of opiate analgesic; Z79.899 Other long term (current) drug therapy; Z88.8 Allergy status to other drugs, medicaments and biological substances; Z87.891 Personal history of nicotine dependence

== ENCOUNTER → 2019-11-02 | Outpatient (CLI) | payer OTHER ==
--- NOTE | 2019-11-04 00:02 | ECWPNPC ---
PATIENT NAME: EL LUCAS : 1965 GENDER: MALE VISIT DATE: 11/02/2019 DISCHARGE DATE: 11/02/19 1607 VISIT LOCKED DATE TIME: PHYSICIAN: RISHI VAZQUEZ MD RESOURCE: RISHI VAZQUEZ MD REASON FOR APPOINTMENT 1. F/U WITH DR BETHANY ASHTON COOL RF HISTORY OF PRESENT ILLNESS HISTORY OF PRESENT ILLNESS: 54-YEAR-OLD MALE PATIENT WITH A HISTORY OF CHRONIC KNEE PAIN. THE PATIENT DESCRIBES THE PAIN SHARP AND WITH A PAIN SCORE RANGING FROM 7-10/10 DEPENDING ON PHYSICAL ACTIVITY. THE PATIENT STATES THAT HE HAS HAD THE PAIN FOR MANY YEARS. THE PATIENT STATES THAT HE HAS HAD 6 SURGERIES ON THE RIGHT KNEE AND 5 SURGERIES ON THE LEFT KNEE. THE PATIENT STATES THAT HE WAS TOLD THAT THERE WERE NO FURTHER SURGERIES TO HELP WITH HIS PAIN. THE PATIENT STATES THAT HIS PAIN IS WORSE ON THE RIGHT THAN ON THE LEFT. PATIENT DENIES UNEXPLAINABLE WEIGHT LOSS, FEVER, CHILLS, NEW CHANGES ON HIS URINARY OR BOWEL CONTROL. PAIN THE PATIENT DESCRIBES THE PAIN... FALL RISK SCREENING: SCREENING :NO FALLS REPORTED IN THE LAST YEAR CURRENT MEDICATIONS TAKING ACETAMINOPHEN 500 MG CAPSULE 1 CAPSULE NEEDED ORALLY EVERY 6 HRS TAKING ASPIRIN 81 MG TABLET CHEWABLE DIRECTED ORALLY TAKING CARBOXYMETHYLCELLULOSE SOD PF 0.5 % SOLUTION DIRECTED OPHTHALMIC TAKING CETIRIZINE HCL 10 MG TABLET 1 TABLET ORALLY ONCE A DAY TAKING COLACE 100 MG CAPSULE 1 CAPSULE NEEDED ORALLY ONCE A DAY TAKING IRON 325 (65 FE) MG TABLET 1 TABLET ORALLY ONCE A DAY TAKING FLONASE ALLERGY RELIEF 50 MCG/ACT SUSPENSION 1 SPRAY IN EACH NOSTRIL NASALLY ONCE A DAY TAKING OMEPRAZOLE 40 MG CAPSULE DELAYED RELEASE 1 CAPSULE 30 MINUTES BEFORE MORNING MEAL ORALLY ONCE A DAY TAKING OXYCODONE HCL 10 MG TABLET 1 TABLET NEEDED ORALLY EVERY 6 HRS TAKING ROPINIROLE HCL 1 MG TABLET 1 TABLET 1 TO 3 HOURS BEFORE BEDTIME ORALLY ONCE A DAY TAKING ROPINIROLE HCL 2 MG TABLET 1 TABLET 1 TO 3 HOURS BEFORE BEDTIME ORALLY ONCE A DAY TAKING VITAMIN C 250 MG TABLET CHEWABLE 1 TABLET ORALLY ONCE A DAY TAKING ROSUVASTATIN CALCIUM 40 MG TABLET 1 TABLET ORALLY ONCE A DAY MEDICATION LIST REVIEWED AND RECONCILED WITH THE PATIENT PAST MEDICAL HISTORY GERD RESTLESS LEG SYNDROME HIGH CHOLESTEROL BILAT KNEE PAIN BILAT SHOULDER PAIN LUMBOSACRAL OR CERVICAL STRAIN LOW IRON ALLERGIES DULOXETINE HCL: UNSURE - ALLERGY GABAPENTIN: IMPOTENCE - SIDE EFFECTS GEMFIBROZIL: UNSURE - ALLERGY SURGICAL HISTORY RIGHT KNEE REPAIR X6 LEFT KNEE SURGERY X5 RIGHT RIB REMOVED CHOLECYSTECTOMY LEFT BREAST LUMPECTOMY FAMILY HISTORY FATHER: 59 YRS, CVA MOTHER: 35 YRS, INTERNAL BLEEDING 2 BROTHER(S) , 1 SISTER(S) - HEALTHY. 2 SON(S) - HEALTHY. SOCIAL HISTORY GENERAL: TOBACCO USE ARE YOU A:FORMER SMOKER HOW LONG HAS IT BEEN SINCE YOU LAST SMOKED?> 10 YEARS LATEX QUESTIONNAIRE LATEX ALLERGY : HAVE YOU EVER DEVELOPED ANY TYPE OF REACTION AFTER HANDLING LATEX PRODUCTS SUCH RUBBER GLOVES, CONDOMS, DIAPHRAGMS, BALLOONS, SOCKS, OR UNDERWEAR?NO LATEX ALLERGY : HAVE YOU EVER DEVELOPED ANY TYPE OF REACTION DURING OR AFTER DENTAL APPOINTMENT, VAGINAL/RECTAL EXAMINATION, SURGICAL PROCEDURE, OR ANY OTHER EXPOSURE?NO LATEX RISK : HAVE YOU EVER HAD ANY DIFFICULTY BREATHING OR HIVES AFTER EATING OR HANDLING ANY FRUITS, OR VEGETABLES; SUCH KIWI, BANANAS, STONE FRUITS, OR CHESTNUTSNO LATEX RISK : DO YOU HAVE A PREVIOUS PERSONAL HISTORY OF MORE THAN NINE SURGERIES, SPINA BIFIDA, OR REPEATED CATHERIZATIONS? NO LATEX RISK : ARE YOU FREQUENTLY EXPOSED TO LATEX PRODUCTS IN YOUR OCCUPATION?NO DATE ASKED : 11/02/2019 ALCOHOL SCREENING DID YOU HAVE A DRINK CONTAINING ALCOHOL IN THE PAST YEAR?NO POINTS0 INTERPRETATIONNEGATIVE RECREATIONAL DRUG USE DRUG USE?NO CAFFEINE CAFFEINE USE?YES HOW OFTEN AND HOW MUCH? 2/DAY COKE MORAVIAN [id number] CONFUCIANIST LANGUAGE LANGUAGES SPOKEN:OCCITAN EDUCATION LEVEL OF EDUCATION:NOT FINISHED COLLEGE LEARNING BARRIERS / SPECIAL NEEDS BARRIERS TO LEARNING?NO HEARING IMPAIRED?NO VISION IMPAIRED?YES COGNITIVELY IMPAIRED?NO :CORRECTIVE LENSES READINESS TO LEARN?YES LEARNING PREFERENCES?NO LEARNING CAPABILITIES PRESENT?YES EMOTIONAL BARRIERS?NO SPECIAL DEVICES?YES :CANE OCCUPATION: DISABLED. DIET: REGULAR. MARITAL STATUS: . OTHERS AT HOME: SPOUSE. NEW PATIENT PAIN DIARY TODAY'S VISIT 11/02/2019 PATIENT DESCRIBES PAIN :ACHING, BURNING, IT COMES AND GOES, SHARP, STABBING, TENDER, THROBBING, SORE, SHOOTING FROM 0-10, WHAT LEVEL IS YOUR PAIN TODAY?5 PRECIPITATING FACTORS PRONLONGED STANDING, KNEELING ALLEVIATING FACTORS PAIN MEDS, PAIN CREAMS IMPACT ON FUNCTION NOT ABLE TO DO MUCH, DECREASED ACTIVITY PAIN CLINIC PFS, CLERGY, PUBLIC HEALTH REFERRALS HAS THE PATIENT BEEN EDUCATED REGARDING HIS/HER PLAN OF CARE?YES HAS THE PATIENT BEEN EDUCATED REGARDING PAIN, THE RISK FOR PAIN, THE IMPORTANCE OF EFFECTIVE PAIN MANAGEMENT, AND THE PAIN ASSESSMENT PROCESS?YES HOUSING: RENTS APARTMENT. ADVANCE DIRECTIVE ADVANCE DIRECTIVE DISCUSSED WITH PATIENT:YES DECLINED PRE-SCREENING CALL DONE. 08/08/19 EM. HOSPITALIZATION/MAJOR DIAGNOSTIC PROCEDURE SURGERIES REVIEW OF SYSTEMS REVIEWED BY: PROVIDER: RISHI VAZQUEZ MD . CONSTITUTIONAL: ANY CHANGE IN YOUR MEDICAL CONDITION? NO . CHILLS NO . FEVER NO . INFECTION: DO YOU HAVE NEW INFECTIONS? NO . DO YOU HAVE HISTORY OF MRSA? NO . MUSCULOSKELETAL: ANY NEW PATTERNS OF PAIN OR NUMBNESS? NO . GASTROENTEROLOGY: ANY NEW CHANGE IN BOWEL CONTROL? NO . GENITOURINARY: ANY NEW CHANGE IN BLADDER CONTROL? NO . IS THERE A CHANCE YOU COULD BE ? NO . HEMATOLOGY/LYMPH: DO YOU TAKE ANY BLOOD THINNERS? (FOR EXAMPLE- COUMADIN, PLAVIX, AGGRENOX, PLATEL, PRADAXA, OR XARELTO) NO . WHEN WAS YOUR LAST DOSE? DATE: TIME: . NEUROLOGY: HAVE YOU FALLEN IN THE PAST 12 MONTHS? NO . ANY NEW EXTREMITY NUMBNESS OR WEAKNESS? NO . CARDIOLOGY: DO YOU HAVE A PACEMAKER OR DEFIBRILLATOR? NO . RESPIRATORY: HAVE YOU BEEN SICK IN THE PAST WEEK? NO . FEVER NO . FLU LIKE SYMPTOMS? NO . COUGH NO . INTEGUMENTARY: DO YOU HAVE ANY RASHES OR OPEN SORES? NO . ALLERGIC/IMMUNO: ARE YOU ALLERGIC TO IV DYE? NO . ANY NEW ALLERGIES? NO . PSYCHIATRIC: DO YOU HAVE THOUGHTS OF HURTING YOURSELF OR SOMEONE ELSE? NO . ARE YOU ABUSED, NEGLECTED, OR IN AN UNSAFE ENVIRONMENT? NO . ENDOCRINOLOGY: ARE YOU DIABETIC? NO . OTHER: DO YOU NEED ANY PRESCRIPTIONS? NO . IF YES, PLEASE LIST: ____ . ANY NEW PROBLEMS WITH YOUR MEDICATIONS? NO . WHEN DID YOU LAST EAT? ____ . WHEN DID YOU LAST DRINK? ____ . WHAT DID YOU LAST DRINK? ____ . NAME OF PERSON DRIVING YOU HOME? ____ . DO YOU HAVE ANY OTHER QUESTIONS OR CONCERNS YES- STATES HE IS ANXIOUS TO HAVE THE COOL RF ON BILATERAL KNEES . VITAL SIGNS WT 210.2 LBS, HT 59 IN, BMI 42.45 INDEX, BP 130/69 MM HG, HR 92 /MIN, RR 18 /MIN, TEMP 97.0 F, OXYGEN SAT % 99%, SAFE IN ENV? (Y/N) YES, NA INITIALS AW 1421, REVIEWED BY: NLWendy. EXAMINATION GENERAL EXAMINATION: THE PATIENT IS ALERT, ORIENTED TIMES THREE AND COOPERATIVE. THE RIGHT KNEE HURTS OVER THE ANTERIOR PATELLA AREA AND THE BACK OF THE KNEE. THE PAIN IS ALSO IN THE SUPERIOR PATELLA AREA. THE RIGHT KNEE HURTS CLOSE TO THE SCAR. THE LEFT KNEE HURTS IN THE MEDIAL ASPECT OF THE KNEE AND IN FRONT OF THE PATELLA, CLOSE TO THE SCAR. 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 PATIENT BROUGHT THE LEFT KNEE MRI WITH HIM TODAY. HE ALSO BROUGHT A SHOULDER MRI. ASSESSMENTS PAIN IN RIGHT KNEE - M25.561 (PRIMARY) PAIN IN LEFT KNEE - M25.562 TREATMENT PAIN IN RIGHT KNEE CLINICAL NOTES: WE DISCUSSED SEVERAL ALTERNATIVES WITH MR. LUCAS REGARDING HIS TREATMENT OPTIONS AND CARE. 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 I HAVE SOME QUESTIONS ABOUT HOW SUCCESSFUL WE CAN BE WITH RADIOFREQUENCY; HOWEVER, WE CAN TRY IT. I WILL REQUEST AUTHORIZATION FOR A DIAGNOSTIC TEST FOR THE RIGHT KNEE TO CONSIDER COOL RF. I WILL ALSO REQUEST AUTHORIZATION FOR A DIAGNOSTIC TEST FOR THE LEFT KNEE TO CONSIDER COOL RF. I WILL DISCUSS THE MRI WITH THE RADIOLOGIST. THE PATIENT KNOWS TO CALL THE OFFICE IF HE HAS ANY QUESTIONS OR CONCERNS. THE PATIENT UNDERSTANDS AND IS IN AGREEMENT WITH THE TREATMENT PLAN. I, HEIDI LEDEZMA, DOCUMENTED THE ABOVE INFORMATION ACTING A SCRIBE FOR DR. VAZQUEZ. I HAVE REVIEWED THE ABOVE DOCUMENT, WRITTEN BY HEIDI LEDEZMA, CHILD ADVOCATE, AND I VERIFY THAT IT IS ACCURATE. PREVENTIVE MEDICINE PAIN CLINIC TEACHING: PROCEDURE TEACHING PRE-PROCEDURE INSTRUCTIONS REVIEWED WITH PT. VERBALIZED UNDERSTANDING.. PROCEDURE CODES 81208 OFFICE/OUTPATIENT VISIT EST DISPOSITION & COMMUNICATION FOLLOW UP REASON: REQUEST DIAGNOSTIC TEST FOR POSSIBLE KNEE RF ELECTRONICALLY SIGNED BY RISHI VAZQUEZ MD, MD ON 11/03/2019 AT 02:12 PM EDT DISCLAIMER : THIS IS A VISIT SUMMARY EXTRACTED FROM THE [employer] CHART. IT IS NOT A COPY OF THE [employer] PROGRESS NOTE. MTDD
== END ==
LOC: M PAIN 14:30
PROVIDERS: ATTEND Anesthesiology
DX: M25.561 Pain in right knee (principal); M25.562 Pain in left knee

== ENCOUNTER → 2019-11-26 | Outpatient (CLI) | payer OTHER | LOC: M LABSMTC 11:28 | PROVIDERS: ATTEND Anesthesiology | DX: Z03.818 Encounter for observation for suspected exposure to other biological agents ruled out (principal); Z11.59 Encounter for screening for other viral diseases | CPT/HCPCS: C9803; U0003 ==

== ENCOUNTER → 2019-11-27 | Outpatient (CLI) | payer OTHER ==
--- NOTE | 2019-11-29 04:34 | ECWPNPC ---
PATIENT NAME: EL LUCAS : 1965 GENDER: MALE VISIT DATE: 11/27/2019 DISCHARGE DATE: 11/27/19 1457 VISIT LOCKED DATE TIME: PHYSICIAN: RISHI VAZQUEZ MD RESOURCE: RISHI VAZQUEZ MD REASON FOR APPOINTMENT 1. NEW BODY PART-SHOULDER HISTORY OF PRESENT ILLNESS DEPRESSION SCREENING: PHQ-2 (2015 EDITION) LITTLE INTEREST OR PLEASURE IN DOING THINGS?NOT AT ALL FEELING DOWN, DEPRESSED, OR HOPELESS?NOT AT ALL TOTAL SCORE0 54 YEAR OLD MALE PATIENT WITH A HISTORY OF CHRONIC BILATERAL SHOULDER PAIN. THE PATIENT DESCRIBES HIS PAIN ACHING, BURNING, INTERMITTENT, SHARP, STABBING, TENDER, THROBBING, SORE, SHOOTING WITH A PAIN SCORE OF 0-10/10 DEPENDING ON PHYSICAL ACTIVITY. THE PATIENT STATES HIS PAIN IS MAINLY OVER HIS RIGHT SHOULDER, THAT STARTED AROUND 6 MONTHS AGO. THE PATIENT SAYS HE ALSO HAS LEFT SHOULDER PAIN AND WAS UNABLE TO LIFT THE SHOULDER OVER THE LAST SEVERAL WEEKS, BUT HIS PAIN HAS RESOLVED FOR THE MOMENT. THE PATIENT SAYS HIS PAIN INCREASES WITH ACTIVITIES AND IS AFFECTING HIS ABILITY TO PERFORM HIS DAILY ACTIVITIES SUCH CLEANING, GROCERY SHOPPING, AND LIFTING OBJECTS. THE PATIENT IS BEING SEEN BY HIS PEDIATRIC ONCOLOGY NURSE, DR. HAWLEY, AT [facility], WHO IS PRESCRIBING OXYCODONE FOR HIS PAIN. THE PATIENT SAYS HE HAS DISCUSSED WITH HIS PEDIATRIC ONCOLOGY NURSE ABOUT IMMUNOSUPPRESSION TO REDUCE JOINT INFLAMMATION. PATIENT DENIES UNEXPLAINABLE WEIGHT LOSS, FEVER, CHILLS, NEW CHANGES ON HIS URINARY OR BOWEL CONTROL. GENERAL: - - -. FALL RISK SCREENING: SCREENING :NO FALLS REPORTED IN THE LAST YEAR PAIN SCREENING: PATIENT HAS A COMPLAINT OF ACUTE OR CHRONIC PAIN :YES LOCATION OF PAIN:BOTH SHOULDERS INTENSITY OF PAIN (SCALE OF 1 TO 10):4 LEFT SHOULDER REPORTED 0, RIGHT SHOULDER REPORTED A 4. BOTH SHOULDERS HAVE BEEN A 10, AND PT UNABLE AT ONE POINT TO LIFT HIS LEFT ARM OVER SHOULDER LEVEL. WHAT DOES YOUR PAIN FEEL LIKE:ACHING, BURNING "HEAVY" FEELING IN ARMS DURATION:AWAKENS FROM SLEEP PAIN IS INCREASED BY:ACTIVITIES PAIN IS DECREASED BY:USE OF PAIN MEDICATIONS, OTHERS BIOWAVE HELPS SOME PAIN HAS INTERFERED WITH THE FOLLOWING:BATHING/DRESSING, HOUSEWORK, SLEEP, TRANSPORTATION PLAN/GOALS/TREATMENT/INTERVENTION/FOLLOW UP:SEE PLAN NURSING NOTE: - - -. PAIN CENTER INTAKE QUESTIONS: DO YOU HAVE A HISTORY OF MRSA? :NO DO YOU TAKE A BLOOD THINNERS? :NO DO YOU HAVE ANY BLEEDING DISORDERS? :NO ANY NEW NUMBNESS OR WEAKNESS IN YOUR LEGS OR ARMS? :NO ANY PACEMAKER,DEFIBRILLATOR, OR DORSAL COLUMN STIMULATOR? :NO DO YOU HAVE ANY RASHES OR OPEN SORES? :NO ARE YOU ALLERGIC TO IV DYE? :NO ARE YOU DIABETIC? :NO ANY NEW PROBLEMS WITH YOUR MEDICATIONS? :NO HAVE YOU RECEIVED A VACCINE IN THE PAST 30 DAYS? :NO DO YOU PLAN TO RECEIVE A VACCINE IN THE NEXT 21 DAYS? :NO DO YOU NEED ANY PRESCRIPTION? :NO DO YOU TAKE ANY IMMUNOSUPPRESSIVE MEDICATIONS? :NO CURRENT MEDICATIONS TAKING ACETAMINOPHEN 500 MG CAPSULE 1 CAPSULE NEEDED ORALLY EVERY 6 HRS TAKING ASPIRIN 81 MG TABLET CHEWABLE DIRECTED ORALLY TAKING CARBOXYMETHYLCELLULOSE SOD PF 0.5 % SOLUTION DIRECTED OPHTHALMIC TAKING CETIRIZINE HCL 10 MG TABLET 1 TABLET ORALLY ONCE A DAY TAKING COLACE 100 MG CAPSULE 1 CAPSULE NEEDED ORALLY ONCE A DAY TAKING IRON 325 (65 FE) MG TABLET 1 TABLET ORALLY ONCE A DAY TAKING FLONASE ALLERGY RELIEF 50 MCG/ACT SUSPENSION 1 SPRAY IN EACH NOSTRIL NASALLY ONCE A DAY TAKING OMEPRAZOLE 40 MG CAPSULE DELAYED RELEASE 1 CAPSULE 30 MINUTES BEFORE MORNING MEAL ORALLY ONCE A DAY TAKING OXYCODONE HCL 10 MG TABLET 1 TABLET NEEDED ORALLY EVERY 6 HRS TAKING ROPINIROLE HCL 1 MG TABLET 1 TABLET 1 TO 3 HOURS BEFORE BEDTIME ORALLY ONCE A DAY TAKING ROPINIROLE HCL 2 MG TABLET 1 TABLET 1 TO 3 HOURS BEFORE BEDTIME ORALLY ONCE A DAY TAKING VITAMIN C 250 MG TABLET CHEWABLE 1 TABLET ORALLY ONCE A DAY TAKING ROSUVASTATIN CALCIUM 40 MG TABLET 1 TABLET ORALLY ONCE A DAY MEDICATION LIST REVIEWED AND RECONCILED WITH THE PATIENT PAST MEDICAL HISTORY GERD RESTLESS LEG SYNDROME HIGH CHOLESTEROL BILAT KNEE PAIN BILAT SHOULDER PAIN LUMBOSACRAL OR CERVICAL STRAIN LOW IRON ALLERGIES DULOXETINE HCL: UNSURE - ALLERGY GABAPENTIN: IMPOTENCE - SIDE EFFECTS GEMFIBROZIL: UNSURE - ALLERGY SURGICAL HISTORY RIGHT KNEE REPAIR X6 LEFT KNEE SURGERY X5 RIGHT RIB REMOVED CHOLECYSTECTOMY LEFT BREAST LUMPECTOMY FAMILY HISTORY FATHER: 59 YRS, CVA MOTHER: 35 YRS, INTERNAL BLEEDING 2 BROTHER(S) , 1 SISTER(S) - HEALTHY. 2 SON(S) - HEALTHY. SOCIAL HISTORY GENERAL: TOBACCO USE ARE YOU A:FORMER SMOKER HOW LONG HAS IT BEEN SINCE YOU LAST SMOKED?> 10 YEARS LATEX QUESTIONNAIRE LATEX ALLERGY : HAVE YOU EVER DEVELOPED ANY TYPE OF REACTION AFTER HANDLING LATEX PRODUCTS SUCH RUBBER GLOVES, CONDOMS, DIAPHRAGMS, BALLOONS, SOCKS, OR UNDERWEAR?NO LATEX ALLERGY : HAVE YOU EVER DEVELOPED ANY TYPE OF REACTION DURING OR AFTER DENTAL APPOINTMENT, VAGINAL/RECTAL EXAMINATION, SURGICAL PROCEDURE, OR ANY OTHER EXPOSURE?NO DATE ASKED : 11/02/2019 LATEX RISK : HAVE YOU EVER HAD ANY DIFFICULTY BREATHING OR HIVES AFTER EATING OR HANDLING ANY FRUITS, OR VEGETABLES; SUCH KIWI, BANANAS, STONE FRUITS, OR CHESTNUTSNO LATEX RISK : DO YOU HAVE A PREVIOUS PERSONAL HISTORY OF MORE THAN NINE SURGERIES, SPINA BIFIDA, OR REPEATED CATHERIZATIONS? NO LATEX RISK : ARE YOU FREQUENTLY EXPOSED TO LATEX PRODUCTS IN YOUR OCCUPATION?NO ALCOHOL SCREENING DID YOU HAVE A DRINK CONTAINING ALCOHOL IN THE PAST YEAR?NO POINTS0 INTERPRETATIONNEGATIVE RECREATIONAL DRUG USE DRUG USE?NO CAFFEINE CAFFEINE USE?YES HOW OFTEN AND HOW MUCH? 2/DAY [employer] [id number] [employer]AZ[employer]ANISM LANGUAGE LANGUAGES SPOKEN:LUXEMBOURGISH EDUCATION LEVEL OF EDUCATION:NOT FINISHED COLLEGE LEARNING BARRIERS / SPECIAL NEEDS BARRIERS TO LEARNING?NO HEARING IMPAIRED?NO VISION IMPAIRED?YES :CORRECTIVE LENSES COGNITIVELY IMPAIRED?NO READINESS TO LEARN?YES LEARNING PREFERENCES?NO LEARNING CAPABILITIES PRESENT?YES EMOTIONAL BARRIERS?NO SPECIAL DEVICES?YES :CANE DOMESTIC VIOLENCE DO YOU FEEL SAFE IN YOUR ENVIRONMENT?YES OCCUPATION: DISABLED. DIET: REGULAR. MARITAL STATUS: . OTHERS AT HOME: SPOUSE. NEW PATIENT PAIN DIARY TODAY'S VISIT 11/02/2019 PATIENT DESCRIBES PAIN :ACHING, BURNING, IT COMES AND GOES, SHARP, STABBING, TENDER, THROBBING, SORE, SHOOTING FROM 0-10, WHAT LEVEL IS YOUR PAIN TODAY?5 PRECIPITATING FACTORS PRONLONGED STANDING, KNEELING ALLEVIATING FACTORS PAIN MEDS, PAIN CREAMS IMPACT ON FUNCTION NOT ABLE TO DO MUCH, DECREASED ACTIVITY PAIN CLINIC PFS, CLERGY, PUBLIC HEALTH REFERRALS HAS THE PATIENT BEEN EDUCATED REGARDING HIS/HER PLAN OF CARE?YES HAS THE PATIENT BEEN EDUCATED REGARDING PAIN, THE RISK FOR PAIN, THE IMPORTANCE OF EFFECTIVE PAIN MANAGEMENT, AND THE PAIN ASSESSMENT PROCESS?YES HOUSING: RENTS APARTMENT. ADVANCE DIRECTIVE ADVANCE DIRECTIVE DISCUSSED WITH PATIENT:YES DECLINED PRE-SCREENING CALL DONE. 08/08/19 EM. HOSPITALIZATION/MAJOR DIAGNOSTIC PROCEDURE SURGERIES REVIEW OF SYSTEMS CONSTITUTIONAL: ANY RECENT FEVER OR ILLNESS NO . CHILLS NO . GASTROENTEROLOGY: BOWEL INCONTINENCE NO . ANY NEW CHANGE IN BOWEL CONTROL? NO . ABDOMINAL PAIN NO . CONSTIPATION NO . GENITOURINARY: ANY NEW CHANGE IN BLADDER CONTROL? NO . IS THERE A CHANCE YOU COULD BE ? NO . URINARY INCONTINENCE NO . CARDIOLOGY: CHEST PRESSURE NO . CHEST PAIN NO . RESPIRATORY: COUGH NO . SHORTNESS OF BREATH NO . VITAL SIGNS WT 217.4 LBS, HT 59 IN, BMI 43.90 INDEX, BP 123/61 MM HG, HR 73 /MIN, RR 18 /MIN, TEMP 97.9 F, OXYGEN SAT % 99%, SAFE IN ENV? (Y/N) YES, NA INITIALS AW 1344, REVIEWED BY: MARY. EXAMINATION GENERAL: PATIENT IS ALERT O X 3 AND COOPERATIVE. LUNGS CLEAR, TO AUSCULTATION. HEART: NO MURMURS OR GALLOPS; FACIAL CRANIAL NERVES ARE GROSSLY NORMAL. GOOD SYMMETRY OF FACIAL MUSCLE MOVEMENT. NORMAL VISUAL LUQUE. TENDERNESS OVER RIGHT SHOULDER CLOSE TO INFRASPINATUS MUSCLE. PAIN OVER SUPRASPINATUS AND ACROMION OF RIGHT SHOULDER. PRESENCE OF BANDS OF TISSUE AND TRIGGER POINTS WITH RESTRICTION OF MOVEMENT OF THE RIGHT SHOULDER AREA. PATIENT CAN ABDUCT BOTH EXTREMITIES. ADEQUATE STRENGTH OF BOTH UPPER EXTREMITIES. NO INCREASING PAIN WITH EXTENSION AND ROTATION OF NECK ON EITHER SIDE. MRI OF RIGHT SHOULDER DONE ON 05/05/19 SHOWS DEGENERATIVE CHANGES OVER HUMERAL HEAD AND ACROMIOCLAVICULAR DEGENERATION. LEFT SHOULDER X-RAY DONE ON 07/04/2019 SHOWS DEGENERATIVE CHANGES AND OSTEOPHYTE OF ACROMIOCLAVICULAR. ASSESSMENTS MYALGIA, OTHER SITE - M79.18 (PRIMARY) PAIN IN RIGHT SHOULDER - M25.511 PAIN IN LEFT SHOULDER - M25.512 OTHER CHRONIC PAIN - G89.29 ARTHRITIS, SHOULDER REGION - M19.019 HISTORY OF RHEUMATOID ARTHRITIS - Z87.39 OSTEOARTHRITIS OF RIGHT SHOULDER, UNSPECIFIED OSTEOARTHRITIS TYPE - M19.011 TREATMENT MYALGIA, OTHER SITE CLINICAL NOTES: WE DISCUSSED SEVERAL ISSUES WITH MR. LUCAS'S PAIN MANAGEMENT CASE. DUE TO THE TRIGGER POINTS, BANDS OF TISSUE, AND RESTRICTION OF MOVEMENT, I WOULD LIKE TO MOVE FORWARD WITH RIGHT AND LEFT TRIGGER POINT INJECTIONS AT THIS TIME. WE DISCUSSED THE BENEFITS, RISKS, AND ALTERNATIVES OF THE INJECTION AND THE PATIENT WOULD LIKE TO PROCEED. WE DISCUSSED THE CONCERNS OF STEROIDS POTENTIALLY CAUSING IMMUNOSUPPRESSION SHORT-TERM AND FURTHER COMPLICATIONS IF THEY COME IN CONTACT WITH COVID-19, SUCH WORSE SYMPTOMS OR . THE PATIENT UNDERSTANDS, WOULD LIKE TO PROCEED WITH THE PROCEDURE, AND AGREES HE WILL BE CAREFUL BY SELF ISOLATING FOR A WEEK OR MORE. I AM LOOKING FOR LONG LASTING PAIN RELIEF FROM THIS INJECTION FOR THE PATIENT. I WILL REFER THE PATIENT TO [facility] FOR BILATERAL SHOULDER PAIN CONSULTATION. THE PATIENT WILL FOLLOW UP IN SEVERAL WEEKS AFTER HIS INJECTION. INSTRUCTIONS WERE GIVEN, QUESTIONS WERE ANSWERED, PATIENT REPORTS UNDERSTANDING AND AGREES WITH THE PLAN. I, DARYA ALMONTE, DOCUMENTED THE ABOVE INFORMATION ACTING A SCRIBE FOR DR. VAZQUEZ. I HAVE REVIEWED THE ABOVE DOCUMENT, WRITTEN BY DARYA MARTINEZ AND I VERIFY THAT IT IS ACCURATE. . OTHERS NOTES: TRIGGER POINT INJECTION MATERIAL WAS PUBLISHED TO [employer],TRIGGER POINT INJECTION MATERIAL WAS PRINTED. PREVENTIVE MEDICINE PAIN CLINIC TEACHING: PROCEDURE TEACHING PRE PROCEDURE INSTRUCTIONS REVIEWED WITH PT. VERBALIZED UNDERSTANDING.. PROCEDURE CODES G8427 CURRENT MEDS W/DOSAGES DOCUMENTED G8730 PAIN ASSESS POS TOOL F/U PLAN DOC FA211 ESTABILISHED PATIENT [facility] FACILITY CHARGE DISPOSITION & COMMUNICATION FOLLOW UP 2 WEEKS (REASON: RT & LT SHOULDER TPI) ELECTRONICALLY SIGNED BY RISHI VAZQUEZ MD, MD ON 11/28/2019 AT 01:07 PM EDT DISCLAIMER : THIS IS A VISIT SUMMARY EXTRACTED FROM THE [employer] CHART. IT IS NOT A COPY OF THE [employer] PROGRESS NOTE. KIRILL
== END ==
LOC: M PAIN 13:45
PROVIDERS: ATTEND Anesthesiology
DX: M79.18 Myalgia, other site (principal); M25.511 Pain in right shoulder; M25.512 Pain in left shoulder; G89.29 Other chronic pain; Z87.39 Personal history of other diseases of the musculoskeletal system and connective tissue; M19.011 Primary osteoarthritis, right shoulder

== ENCOUNTER → 2019-11-29 | Outpatient (CLI) | payer OTHER ==
[~2019-11-29] MED LIST changes: -ASPI81TA85 PO; +ASPI81TA86 PO; +BUPIVACAINE HCL 0.25% 30ML VIAL As Ordered ONE; +ISOVUE-M 300 61% 15ML VIAL As Ordered ONE; +LIDOCAINE 1% SDV 30ML VIAL As Ordered ONE; +MONT10TA10 PO; -MONT10TA4 PO
--- NOTE | 2019-11-29 16:26 | REP ---
LEFT KNEE: 47 VIEWS. HISTORY: Left knee injection for pain. 1 minutes 59 seconds of fluoroscopy time is reported. FINDINGS: A sequence of 47 last image hold fluoroscopically obtained spot radiographs of the knee document various needle positions and contrast injections associated with injection procedure. Electronically Signed by Hill Lopez MD 11/29/2019 05:22 P
--- NOTE | 2019-12-01 01:46 | ECWPNPC ---
PATIENT NAME: EL LUCAS : 1965 GENDER: MALE VISIT DATE: 11/29/2019 DISCHARGE DATE: 11/29/19 1511 VISIT LOCKED DATE TIME: PHYSICIAN: RISHI VAZQUEZ MD RESOURCE: RISHI VAZQUEZ MD REASON FOR APPOINTMENT 1. DIAGNOSTIC BLOCK TO LEFT KNEE. HISTORY OF PRESENT ILLNESS GENERAL: -. FALL RISK SCREENING: SCREENING :NO FALLS REPORTED IN THE LAST YEAR PAIN SCREENING: PATIENT HAS A COMPLAINT OF ACUTE OR CHRONIC PAIN :YES LOCATION OF PAIN:LOW BACK, KNEES LEFT KNEE INTENSITY OF PAIN (SCALE OF 1 TO 10):9 WHAT DOES YOUR PAIN FEEL LIKE:ACHING, BURNING, INTERMITTENT, STABBING, TENDER, THROBBING, SORE, SHOOTING DURATION:ALL DAY, INTERMITTENT, AWAKENS FROM SLEEP PAIN IS INCREASED BY: STANDING OR KNEELING PAIN IS DECREASED BY: PAIN MEDS, LIDOCAINE CREAM MIXED WITH MUSCLE RUB NURSING NOTE: -. PAIN CENTER INTAKE QUESTIONS: DO YOU HAVE A HISTORY OF MRSA? :NO DO YOU TAKE A BLOOD THINNERS? :NO DO YOU HAVE ANY BLEEDING DISORDERS? :NO ANY NEW NUMBNESS OR WEAKNESS IN YOUR LEGS OR ARMS? :NO ANY PACEMAKER,DEFIBRILLATOR, OR DORSAL COLUMN STIMULATOR? :NO DO YOU HAVE ANY RASHES OR OPEN SORES? :NO ARE YOU ALLERGIC TO IV DYE? :NO ARE YOU DIABETIC? :NO ANY NEW PROBLEMS WITH YOUR MEDICATIONS? :NO HAVE YOU RECEIVED A VACCINE IN THE PAST 30 DAYS? :NO DO YOU PLAN TO RECEIVE A VACCINE IN THE NEXT 21 DAYS? :NO DO YOU TAKE ANY IMMUNOSUPPRESSIVE MEDICATIONS? :NO ANY HISTORY OF SEIZURES? :NO ANY HISTORY OF CARDIAC ISSUES OR EVENTS? :NO DO YOU HAVE SLEEP APNEA? : NO. ANY RECENT HEAD INJURY? :NO DO YOU HAVE ANY NEW INFECTIONS? :NO IS THERE A CHANCE YOU COULD BE ? :NO ARE YOU BREAST FEEDING? :NO WHEN DID YOU LAST EAT? : 11/27 2300 WHEN DID YOU LAST DRINK? : 11/28 1015 WHAT DID YOU LAST DRINK? : WATER NAME OF PERSON DRIVING YOU HOME? : - - GABE DO YOU HAVE ANY OTHER QUESTIONS OR CONCERNS? : NO CURRENT MEDICATIONS TAKING ACETAMINOPHEN 500 MG CAPSULE 1 CAPSULE NEEDED ORALLY EVERY 6 HRS, NOTES: NONE RECENT TAKING ASPIRIN 81 MG TABLET CHEWABLE DIRECTED ORALLY , NOTES: 11/27 1800 TAKING CARBOXYMETHYLCELLULOSE SOD PF 0.5 % SOLUTION DIRECTED OPHTHALMIC , NOTES: 11/26 TAKING CETIRIZINE HCL 10 MG TABLET 1 TABLET ORALLY ONCE A DAY, NOTES: 11/27 230 TAKING COLACE 100 MG CAPSULE 1 CAPSULE NEEDED ORALLY ONCE A DAY, NOTES: 11/27 1200 TAKING IRON 325 (65 FE) MG TABLET 1 TABLET ORALLY ONCE A DAY, NOTES: 11/27 06 TAKING FLONASE ALLERGY RELIEF 50 MCG/ACT SUSPENSION 1 SPRAY IN EACH NOSTRIL NASALLY ONCE A DAY, NOTES: 11/26 TAKING OMEPRAZOLE 40 MG CAPSULE DELAYED RELEASE 1 CAPSULE 30 MINUTES BEFORE MORNING MEAL ORALLY ONCE A DAY, NOTES: 11/27 2299 TAKING OXYCODONE HCL 10 MG TABLET 1 TABLET NEEDED ORALLY EVERY 6 HRS, NOTES: 11/27 230 TAKING ROPINIROLE HCL 1 MG TABLET 1 TABLET 1 TO 3 HOURS BEFORE BEDTIME ORALLY ONCE A DAY, NOTES: 11/27 1800 TAKING ROPINIROLE HCL 2 MG TABLET 1 TABLET 1 TO 3 HOURS BEFORE BEDTIME ORALLY ONCE A DAY, NOTES: 11/27 230 TAKING VITAMIN C 250 MG TABLET CHEWABLE 1 TABLET ORALLY ONCE A DAY, NOTES: 11/27 06 TAKING ROSUVASTATIN CALCIUM 40 MG TABLET 1 TABLET ORALLY ONCE A DAY, NOTES: 11/27 2299 MEDICATION LIST REVIEWED AND RECONCILED WITH THE PATIENT PAST MEDICAL HISTORY GERD RESTLESS LEG SYNDROME HIGH CHOLESTEROL BILAT KNEE PAIN BILAT SHOULDER PAIN LUMBOSACRAL OR CERVICAL STRAIN LOW IRON ALLERGIES DULOXETINE HCL: UNSURE - ALLERGY GABAPENTIN: IMPOTENCE - SIDE EFFECTS GEMFIBROZIL: UNSURE - ALLERGY SURGICAL HISTORY RIGHT KNEE REPAIR X6 LEFT KNEE SURGERY X5 RIGHT RIB REMOVED CHOLECYSTECTOMY LEFT BREAST LUMPECTOMY FAMILY HISTORY FATHER: 59 YRS, CVA MOTHER: 35 YRS, INTERNAL BLEEDING 2 BROTHER(S) , 1 SISTER(S) - HEALTHY. 2 SON(S) - HEALTHY. SOCIAL HISTORY GENERAL: TOBACCO USE ARE YOU A:FORMER SMOKER HOW LONG HAS IT BEEN SINCE YOU LAST SMOKED?> 10 YEARS LATEX QUESTIONNAIRE LATEX ALLERGY : HAVE YOU EVER DEVELOPED ANY TYPE OF REACTION AFTER HANDLING LATEX PRODUCTS SUCH RUBBER GLOVES, CONDOMS, DIAPHRAGMS, BALLOONS, SOCKS, OR UNDERWEAR?NO LATEX ALLERGY : HAVE YOU EVER DEVELOPED ANY TYPE OF REACTION DURING OR AFTER DENTAL APPOINTMENT, VAGINAL/RECTAL EXAMINATION, SURGICAL PROCEDURE, OR ANY OTHER EXPOSURE?NO LATEX RISK : HAVE YOU EVER HAD ANY DIFFICULTY BREATHING OR HIVES AFTER EATING OR HANDLING ANY FRUITS, OR VEGETABLES; SUCH KIWI, BANANAS, STONE FRUITS, OR CHESTNUTSNO LATEX RISK : DO YOU HAVE A PREVIOUS PERSONAL HISTORY OF MORE THAN NINE SURGERIES, SPINA BIFIDA, OR REPEATED CATHERIZATIONS? YES - PLEASE INDICATE : > 9 SURGERIES LATEX RISK : ARE YOU FREQUENTLY EXPOSED TO LATEX PRODUCTS IN YOUR OCCUPATION?NO DATE ASKED : 11/29/2019 ALCOHOL SCREENING DID YOU HAVE A DRINK CONTAINING ALCOHOL IN THE PAST YEAR?NO POINTS0 INTERPRETATIONNEGATIVE RECREATIONAL DRUG USE DRUG USE?NO CAFFEINE CAFFEINE USE?YES HOW OFTEN AND HOW MUCH? 2/DAY COKE BUDDHISM [id number] RESTORATIONISM LANGUAGE LANGUAGES SPOKEN:MALAY EDUCATION LEVEL OF EDUCATION:NOT FINISHED COLLEGE LEARNING BARRIERS / SPECIAL NEEDS BARRIERS TO LEARNING?NO HEARING IMPAIRED?NO VISION IMPAIRED?YES :CORRECTIVE LENSES COGNITIVELY IMPAIRED?NO READINESS TO LEARN?YES LEARNING PREFERENCES?NO LEARNING CAPABILITIES PRESENT?YES EMOTIONAL BARRIERS?NO SPECIAL DEVICES?YES :CANE REGULATOR PIN INSERTER NEEDED?NO DOMESTIC VIOLENCE DO YOU FEEL SAFE IN YOUR ENVIRONMENT?YES OCCUPATION: DISABLED. DIET: REGULAR. MARITAL STATUS: . OTHERS AT HOME: SPOUSE. PAIN CLINIC PFS, CLERGY, PUBLIC HEALTH REFERRALS HAS THE PATIENT BEEN EDUCATED REGARDING HIS/HER PLAN OF CARE?YES HAS THE PATIENT BEEN EDUCATED REGARDING PAIN, THE RISK FOR PAIN, THE IMPORTANCE OF EFFECTIVE PAIN MANAGEMENT, AND THE PAIN ASSESSMENT PROCESS?YES HOUSING: RENTS APARTMENT. ADVANCE DIRECTIVE ADVANCE DIRECTIVE DISCUSSED WITH PATIENT:YES 11/29/2019 PT DOES NOT HAVE ANY ADVANCED DIRECTIVES AND HE DECLINES INFORMATION ON HCP AT THIS TIME AD HOSPITALIZATION/MAJOR DIAGNOSTIC PROCEDURE SURGERIES VITAL SIGNS WT 213 LBS, HT 59 IN, BMI 43.02 INDEX, BP 119/68 MM HG, HR 72 /MIN, RR 18 /MIN, TEMP 96.3 F, OXYGEN SAT % 98%, NA INITIALS SC 13:00. ASSESSMENTS PAIN IN LEFT KNEE - M25.562 (PRIMARY) TREATMENT PAIN IN LEFT KNEE [facility] FLUORO GUIDANCE (PAIN)[id number] PROCEDURES PAIN NURSING RECORD PRE-PROCEDURE IV SITE RIGHT WRIST, IV STARTED # 22, IV STARTED BY: Pako PARIS RN, IV ATTEMPTS 2, PRE-PROCEDURE ORAL MEDICATIONS NONE PROCEDURE IN ROOM 1335, PHYSICIAN IN ROOM 1405, START 1421, FINISH 1445, PHYSICIAN OUT OF ROOM 1451, OUT OF ROOM 1455, STEROID N/A, O2 RA, ECG NORMAL SINUS, PATIENT SHIELDED YES, SAFETY STRAP NO, PREP CHLOROPREP, IV INFUSED N/A, DRESSING TEGADERM DR. VAZQUEZ LOC: [facility] 11/29/2019 1:20:59 PM > 1. ALERT, ORIENTED RESP: [facility] 11/29/2019 1:21:03 PM > 1. REGULAR, NO DYSPNEA COLOR: [facility] 11/29/2019 1:21:06 PM > 1. PINK SKIN: [facility] 11/29/2019 1:21:10 PM > 1. WARM, DRY POSITION: 2. SUPINE VITALS: [facility] 11/29/2019 1:35:04 PM > 135/69,66,16,99% ULISES,SANJUANITA 11/29/2019 1:50:16 PM >128/71 ,77,16,97% ULISES,SANJUANITA 11/29/2019 2:05:13 PM >130/76, 71,16,99% ULISES,SANJUANITA 11/29/2019 2:20:10 PM > 128/72,71, 16,100% ULISES,SANJUANITA 11/29/2019 2:35:23 PM >124/74 ,67,16,98% ULISES,SANJUANITA 11/29/2019 2:50:55 PM > 121/76,66,16,99% ULISES,SANJUANITA 11/29/2019 3:03:39 PM > 116/66,67,16,99% DISCHARGE: POST PAIN 0/10, DRESSING SITE DRY AND INTACT, IV DISCONTINUED, SITE CLEAR, CATHETER INTACT, GAIT STEADY AMBULATES WITH CANE, TEACHING COMPLETED, PATIENT ACKNOWLEDGES UNDERSTANDING YES, PATIENT DISCHARGED AT 1509 PRE-PROCEDURE DIAGNOSIS: LEFT KNEE OSTEOARTHRITISPOST-PROCEDURE DIAGNOSIS: LEFT KNEE OSTEOARTHRITISPROCEDURE: DIAGNOSTIC BLOCK NUMBER 1 FOR LEFT KNEE PAIN. BLOCK OF SUPERIOR MEDIAL GENICULAR NERVE, SUPERIOR LATERAL GENICULAR NERVE, INFERIOR MEDIAL GENICULAR NERVE AND THE TERMINAL BRANCH OF THE VASTUS INTERMEDIUS NERVE (SUPRAPATELLAR NERVE).SURGEON: RISHI VAZQUEZ, MDANESTHESIA: LOCALCOMPLICATIONS: NONEPRE-PROCEDURE NOTE: THE PATIENT HAS A HISTORY OF LEFT KNEE PAIN. I EVALUATED THE PATIENT AND REVIEWED THE CHART. I DISCUSSED THE RISK, BENEFITS AND ALTERNATIVES OF THE PROCEDURE. THE PATIENT UNDERSTANDS AND AGREES AND WOULD LIKE TO MOVE FORWARD WITH THE PROCEDURE. AGREED WITH THE PATIENT, WE ARE DOING THIS PROCEDURE TO DETERMINE IF THE PATIENT IS A CANDIDATE FOR A RADIOFREQUENCY ABLATION. THE PATIENT DENIES UNEXPLAINABLE WEIGHT LOSS, FEVER, CHILLS, OR CHANGES IN URINARY OR BOWEL CONTROL. DESCRIPTION OF PROCEDURE AFTER CONSENT WAS TAKEN, THE PATIENT WAS BROUGHT TO THE PROCEDURE ROOM AND PLACED IN THE SUPINE POSITION WITH THE LEFT KNEE FLEXED. THE KNEE WAS CLEANED WITH BETADINE SOLUTION AND DRAPED ASEPTICALLY. THE PROCEDURE WAS DONE UNDER STERILE CONDITIONS. A TIMEOUT WAS PERFORMED WHERE LATERALITY AND THE SITE OF THE PROCEDURE WERE CHECKED AND CONFIRMED WITH EVERYONE IN THE ROOM. UNDER FLUOROSCOPIC GUIDANCE, THE TARGET POINTS WERE SELECTED AT THE INTERSECTION OF THE SUPERIOR LATERAL AND MEDIAL EPIPHYSIS AND DIAPHYSIS, THE INFERIOR MEDIAL EPIPHYSIS AND DIAPHYSIS AND 5 CM ABOVE THE SUPERIOR BORDER OF THE PATELLA. LIDOCAINE 1%, 0.2 ML, WAS INJECTED INTO THE SKIN AT EACH INSERTION POINT. SPINAL NEEDLES, 22-GAUGE, WERE ADVANCED UNDER AP VIEW UNTIL THE PERIOSTEUM WAS REACHED. THEN I WENT TO THE LATERAL VIEW AND THE NEEDLE WAS ADVANCED AFTER PROPER BONY ALIGNMENT TO 50% DEEP OF THE SHAFT OF THE BONE IN EACH NERVE, EXCEPT FOR THE SUPRAPATELLAR NERVE, WHICH WAS LEFT IN THE PRIOR POSITION. ISOVUE-M DYE 30%, 0.1 ML, WAS INJECTED SHOWING ADEQUATE SPREAD OF THE DYE. THEN 0.75 ML OF BUPIVACAINE 0.25% WAS INJECTED AT EACH SITE. THERE WAS NO EVIDENCE OF PARESTHESIA OR BLOOD. THERE WERE NO COMPLICATIONS DURING THE PROCEDURE. THE PATIENT WAS SENT TO THE RECOVERY ROOM FOR OBSERVATION. ESTIMATED BLOOD LOSS WAS LESS THAN 5 ML. FLUOROSCOPY TIME WAS 1 MINUTE 59 SECONDS.POST-PROCEDURE NOTE: THE PATIENT WILL DOCUMENT PAIN LEVEL AND RESPONSE TO THIS PROCEDURE EVERY 1 HOUR. THE PATIENT WILL BE SEEN IN A FOLLOW UP IN THE NEXT FEW WEEKS. INSTRUCTIONS WERE GIVEN, QUESTIONS WERE ANSWERED, AND THE PATIENT EXPRESSED UNDERSTANDING AND AGREES WITH THE PLAN. I, HEIDI LEDEZMA, DOCUMENTED THE ABOVE INFORMATION ACTING A SCRIBE FOR DR. VAZQUEZ. I HAVE REVIEWED THE ABOVE DOCUMENT, WRITTEN BY HEIDI LEDEZMA, FIELD ARTILLERY OFFICER, AND I VERIFY THAT IT IS ACCURATE. PROCEDURE CODES [id number] NJX AA&/STRD GNCLR NRV [facility], MODIFIERS: LT DISPOSITION & COMMUNICATION FOLLOW UP 1 WEEK- WITH DR. Garcia (REASON: S/P DIAG #1 LEFT KNEE) ELECTRONICALLY SIGNED BY RISHI VAZQUEZ MD, MD ON 11/30/2019 AT 11:54 AM EDT DISCLAIMER : THIS IS A VISIT SUMMARY EXTRACTED FROM THE [employer] CHART. IT IS NOT A COPY OF THE [employer] PROGRESS NOTE. KIRILL
== END ==
LOC: M PAIN 12:45
PROVIDERS: ATTEND Anesthesiology
DX: M25.562 Pain in left knee (principal)
CPT/HCPCS: 64454; Q9967

== ENCOUNTER → 2019-12-05 | Outpatient (CLI) | payer OTHER ==
[~2019-12-05] MED LIST changes: +ASPI81TA85 PO; -ASPI81TA86 PO; -BUPIVACAINE HCL 0.25% 30ML VIAL As Ordered ONE; -ISOVUE-M 300 61% 15ML VIAL As Ordered ONE; -LIDOCAINE 1% SDV 30ML VIAL As Ordered ONE; -MONT10TA10 PO; +MONT10TA4 PO
== END ==
LOC: M LABSMTC 10:36
PROVIDERS: ATTEND Anesthesiology
DX: Z03.818 Encounter for observation for suspected exposure to other biological agents ruled out (principal); Z11.59 Encounter for screening for other viral diseases
CPT/HCPCS: C9803; U0003

== ENCOUNTER → 2019-12-08 | Outpatient (CLI) | payer OTHER ==
[~2019-12-08] MED LIST changes: +BUPIVACAINE HCL 0.25% 10ML VIAL As Ordered ONE; +BUPIVACAINE HCL 0.25% 30ML VIAL As Ordered ONE; +TRIAMCINOLONE ACETONIDE SUSP 40 MG/ML VIAL (J3301) As Ordered ONE
--- NOTE | 2019-12-09 00:24 | ECWPNPC ---
PATIENT NAME: EL LUCAS : 1965 GENDER: MALE VISIT DATE: 12/08/2019 DISCHARGE DATE: 12/08/19931 VISIT LOCKED DATE TIME: PHYSICIAN: RISHI VAZQUEZ MD RESOURCE: RISHI VAZQUEZ MD REASON FOR APPOINTMENT 1. RT & LT SHOULDER TPI PAT DONE HISTORY OF PRESENT ILLNESS GENERAL: -. FALL RISK SCREENING: SCREENING :NO FALLS REPORTED IN THE LAST YEAR PAIN SCREENING: PATIENT HAS A COMPLAINT OF ACUTE OR CHRONIC PAIN :YES LOCATION OF PAIN:RIGHT SHOULDER, BOTH SHOULDERS INTENSITY OF PAIN (SCALE OF 1 TO 10):5 WHAT DOES YOUR PAIN FEEL LIKE:ACHING, CONTINOUS, TENDER, THROBBING NURSING NOTE: -. PAIN CENTER INTAKE QUESTIONS: DO YOU HAVE A HISTORY OF MRSA? :NO DO YOU TAKE A BLOOD THINNERS? :NO DO YOU HAVE ANY BLEEDING DISORDERS? :NO ANY NEW NUMBNESS OR WEAKNESS IN YOUR LEGS OR ARMS? :NO ANY PACEMAKER,DEFIBRILLATOR, OR DORSAL COLUMN STIMULATOR? :NO DO YOU HAVE ANY RASHES OR OPEN SORES? :NO ARE YOU ALLERGIC TO IV DYE? :NO ARE YOU DIABETIC? :NO ANY NEW PROBLEMS WITH YOUR MEDICATIONS? :NO HAVE YOU RECEIVED A VACCINE IN THE PAST 30 DAYS? :NO DO YOU PLAN TO RECEIVE A VACCINE IN THE NEXT 21 DAYS? :NO DO YOU TAKE ANY IMMUNOSUPPRESSIVE MEDICATIONS? :NO ANY HISTORY OF SEIZURES? :NO ANY HISTORY OF CARDIAC ISSUES OR EVENTS? :NO DO YOU HAVE SLEEP APNEA? :YES MILD JILLIAN DO YOU WEAR A CPAP?NO ANY RECENT HEAD INJURY? :NO DO YOU HAVE ANY NEW INFECTIONS? :NO IS THERE A CHANCE YOU COULD BE ? :NO ARE YOU BREAST FEEDING? :NO WHEN DID YOU LAST EAT? : -12/07 1AM WHEN DID YOU LAST DRINK? : -12/07 6AM WHAT DID YOU LAST DRINK? : -WATER NAME OF PERSON DRIVING YOU HOME? : -, GABE DO YOU HAVE ANY OTHER QUESTIONS OR CONCERNS? : - CURRENT MEDICATIONS TAKING ACETAMINOPHEN 500 MG CAPSULE 1 CAPSULE NEEDED ORALLY EVERY 6 HRS, NOTES: 1 WEEK TAKING ASPIRIN 81 MG TABLET CHEWABLE DIRECTED ORALLY , NOTES: 12/05 12NOON TAKING CARBOXYMETHYLCELLULOSE SOD PF 0.5 % SOLUTION DIRECTED OPHTHALMIC , NOTES: 12/04 TAKING CETIRIZINE HCL 10 MG TABLET 1 TABLET ORALLY ONCE A DAY, NOTES: 12/05 12NOON TAKING COLACE 100 MG CAPSULE 1 CAPSULE NEEDED ORALLY ONCE A DAY, NOTES: 12/04 TAKING IRON 325 (65 FE) MG TABLET 1 TABLET ORALLY ONCE A DAY, NOTES: 12/05 6A TAKING FLONASE ALLERGY RELIEF 50 MCG/ACT SUSPENSION 1 SPRAY IN EACH NOSTRIL NASALLY ONCE A DAY, NOTES: 12/04 TAKING OMEPRAZOLE 40 MG CAPSULE DELAYED RELEASE 1 CAPSULE 30 MINUTES BEFORE MORNING MEAL ORALLY ONCE A DAY, NOTES: 12/05 11P TAKING OXYCODONE HCL 10 MG TABLET 1 TABLET NEEDED ORALLY EVERY 6 HRS, NOTES: 12/05 11P TAKING ROPINIROLE HCL 1 MG TABLET 1 TABLET 1 TO 3 HOURS BEFORE BEDTIME ORALLY ONCE A DAY, NOTES: 12/05 6P TAKING ROPINIROLE HCL 2 MG TABLET 1 TABLET 1 TO 3 HOURS BEFORE BEDTIME ORALLY ONCE A DAY, NOTES: 12/05 11P TAKING VITAMIN C 250 MG TABLET CHEWABLE 1 TABLET ORALLY ONCE A DAY, NOTES: 12/05 6A TAKING ROSUVASTATIN CALCIUM 40 MG TABLET 1 TABLET ORALLY ONCE A DAY, NOTES: 12/05 6A MEDICATION LIST REVIEWED AND RECONCILED WITH THE PATIENT PAST MEDICAL HISTORY GERD RESTLESS LEG SYNDROME HIGH CHOLESTEROL BILAT KNEE PAIN BILAT SHOULDER PAIN LUMBOSACRAL OR CERVICAL STRAIN LOW IRON ALLERGIES DULOXETINE HCL: UNSURE - ALLERGY GABAPENTIN: IMPOTENCE - SIDE EFFECTS GEMFIBROZIL: UNSURE - ALLERGY SURGICAL HISTORY RIGHT KNEE REPAIR X6 LEFT KNEE SURGERY X5 RIGHT RIB REMOVED CHOLECYSTECTOMY LEFT BREAST LUMPECTOMY FAMILY HISTORY FATHER: 59 YRS, CVA MOTHER: 35 YRS, INTERNAL BLEEDING 2 BROTHER(S) , 1 SISTER(S) - HEALTHY. 2 SON(S) - HEALTHY. SOCIAL HISTORY GENERAL: TOBACCO USE ARE YOU A:FORMER SMOKER HOW LONG HAS IT BEEN SINCE YOU LAST SMOKED?> 10 YEARS LATEX QUESTIONNAIRE LATEX ALLERGY : HAVE YOU EVER DEVELOPED ANY TYPE OF REACTION AFTER HANDLING LATEX PRODUCTS SUCH RUBBER GLOVES, CONDOMS, DIAPHRAGMS, BALLOONS, SOCKS, OR UNDERWEAR?NO LATEX ALLERGY : HAVE YOU EVER DEVELOPED ANY TYPE OF REACTION DURING OR AFTER DENTAL APPOINTMENT, VAGINAL/RECTAL EXAMINATION, SURGICAL PROCEDURE, OR ANY OTHER EXPOSURE?NO LATEX RISK : HAVE YOU EVER HAD ANY DIFFICULTY BREATHING OR HIVES AFTER EATING OR HANDLING ANY FRUITS, OR VEGETABLES; SUCH KIWI, BANANAS, STONE FRUITS, OR CHESTNUTSNO LATEX RISK : DO YOU HAVE A PREVIOUS PERSONAL HISTORY OF MORE THAN NINE SURGERIES, SPINA BIFIDA, OR REPEATED CATHERIZATIONS? YES - PLEASE INDICATE : > 9 SURGERIES LATEX RISK : ARE YOU FREQUENTLY EXPOSED TO LATEX PRODUCTS IN YOUR OCCUPATION?NO DATE ASKED : 12/07/2019 ALCOHOL SCREENING DID YOU HAVE A DRINK CONTAINING ALCOHOL IN THE PAST YEAR?NO POINTS0 INTERPRETATIONNEGATIVE RECREATIONAL DRUG USE DRUG USE?NO CAFFEINE CAFFEINE USE?YES HOW OFTEN AND HOW MUCH? 2/DAY COKE DRUZE [id number] HINDUISM LANGUAGE LANGUAGES SPOKEN:[place] EDUCATION LEVEL OF EDUCATION:NOT FINISHED COLLEGE LEARNING BARRIERS / SPECIAL NEEDS BARRIERS TO LEARNING?NO HEARING IMPAIRED?NO VISION IMPAIRED?YES COGNITIVELY IMPAIRED?NO :CORRECTIVE LENSES READINESS TO LEARN?YES LEARNING PREFERENCES?NO LEARNING CAPABILITIES PRESENT?YES EMOTIONAL BARRIERS?NO SPECIAL DEVICES?YES :CANE EMT P NEEDED?NO DOMESTIC VIOLENCE DO YOU FEEL SAFE IN YOUR ENVIRONMENT?YES OCCUPATION: DISABLED. DIET: REGULAR. MARITAL STATUS: . OTHERS AT HOME: SPOUSE. PAIN CLINIC PFS, CLERGY, PUBLIC HEALTH REFERRALS HAS THE PATIENT BEEN EDUCATED REGARDING HIS/HER PLAN OF CARE?YES HAS THE PATIENT BEEN EDUCATED REGARDING PAIN, THE RISK FOR PAIN, THE IMPORTANCE OF EFFECTIVE PAIN MANAGEMENT, AND THE PAIN ASSESSMENT PROCESS?YES HOUSING: RENTS APARTMENT. ADVANCE DIRECTIVE ADVANCE DIRECTIVE DISCUSSED WITH PATIENT:YES PT DOES NOT HAVE ANY ADVANCED DIRECTIVES AND HE DECLINES INFORMATION ON HCP AT THIS TIME HOSPITALIZATION/MAJOR DIAGNOSTIC PROCEDURE SURGERIES VITAL SIGNS WT 215.8 LBS, HT 59 IN, BMI 43.58 INDEX, BP 124/71 MM HG, HR 75 /MIN, RR 18 /MIN, TEMP 98.4 F, OXYGEN SAT % 96%, SAFE IN ENV? (Y/N) Y, NA INITIALS AW 0851, REVIEWED BY: MANUEL. EXAMINATION GENERAL EXAMINATION: THE PATIENT IS ALERT, ORIENTED TIMES THREE AND COOPERATIVE. HEART SHOWS REGULAR RHYTHM, NO MURMURS AND NO GALLOPS. LUNGS ARE CLEAR TO AUSCULTATION. ASSESSMENTS MYALGIA, OTHER SITE - M79.18 (PRIMARY) PROCEDURES PAIN NURSING RECORD PRE-PROCEDURE IV SITE N/A, PRE-PROCEDURE ORAL MEDICATIONS N/A PROCEDURE IN ROOM 0850, PHYSICIAN IN ROOM 0908, START 0911, FINISH 0915, PHYSICIAN OUT OF ROOM 0918, STEROID KENALOG 40MG, O2 RA, ECG N/A, PATIENT SHIELDED NO, SAFETY STRAP NO, PREP ALCOHOL MD VAZQUEZ, IV INFUSED N/A, DRESSING TEGADERM TORIE RN LOC: TATA RANKIN RN 12/08/2019 9:01:16 AM > , 1. ALERT, ORIENTED RESP: TATA RANKIN RN 12/08/2019 9:01:21 AM > , 1. REGULAR, NO DYSPNEA COLOR: TATA RANKIN RN 12/08/2019 9:01:25 AM > , 1. PINK SKIN: TATA RANKIN RN 12/08/2019 9:01:29 AM > , 1. WARM, DRY POSITION: TATA RANKIN RN 12/08/2019 9:01:33 AM > , 1. PRONE VITALS: TATA RANKIN RN 12/08/2019 9:22:14 AM > 110/65, 77, 18, 97% DISCHARGE: POST PAIN 0/10, DRESSING SITE DRY AND INTACT, IV N/A, GAIT STEADY AMBULATES WITH CANE, TEACHING COMPLETED, PATIENT ACKNOWLEDGES UNDERSTANDING YES, PATIENT DISCHARGED AT 0926 PN TRIGGER POINT INJECTION WITH STEROIDS PRE PROCEDURE DIAGNOSIS 1. MYALGIA 2. PAIN AT BILATERAL SHOULDER AREA POST PROCEDURE DIAGNOSIS 1. MYALGIA 2. PAIN AT BILATERAL SHOULDER AREA PROCEDURE TRIGGER POINT INJECTION AT BILATERAL SHOULDER AREA SURGEON DR. RISHI VAZQUEZ LOOP TACKER NONE ANESTHESIA LOCAL PRE PROCEDURE NOTE THE PATIENT HAS A HISTORY OF CHRONIC PAIN AT THE RIGHT AND LEFT SHOULDER AREA. I EVALUATED THE PATIENT AND REVIEWED THE CHART. THERE IS EVIDENCE OF BANDS OF TISSUE WITH RESTRICTION OF MOVEMENT AND PRESENCE OF TRIGGER POINT AT THE RIGHT AND LEFT SHOULDER AREA. I WENT OVER THE RISKS, ALTERNATIVES, AND BENEFITS ASSOCIATED WITH THIS PROCEDURE. I DISCUSSED THAT THE USE OF STEROIDS MAY CONTRIBUTE TO IMMUNOSUPPRESSION OF THE PATIENT'S BODY AGAINST INFECTIONS SUCH COVID-19. THE PATIENT IS AWARE OF THE POTENTIAL COMPLICATIONS ASSOCIATED WITH THIS VIRUS, INCLUDING, BUT NOT LIMITED TO, . I DISCUSSED THE USE OF DEXAMETHASONE INSTEAD OF KENALOG; HOWEVER, THE PATIENT WOULD LIKE TO MOVE FORWARD WITH KENALOG. THE PATIENT WOULD LIKE TO PROCEED AND GIVE CONSENT TO PERFORMED THE PROCEDURE. THE PATIENT DENIES UNEXPLAINABLE WEIGHT LOSS, FEVER, CHILLS, OR NEW CHANGES IN URINARY OR BOWEL CONTROL. THE PATIENT IS COVID-19 NEGATIVE DESCRIPTION OF PROCEDURE THE PATIENT WAS BROUGHT TO THE PROCEDURE ROOM AND PLACED IN THE SITTING POSITION. THE AREA WAS CLEANED WITH ALCOHOL. THE PROCEDURE WAS DONE USING ASEPTIC STERILE TECHNIQUE. I CHECKED LATERALITY AND THE LEVEL WHERE THE PROCEDURE WAS GOING TO BE PERFORMED WITH THE PATIENT AND THE SUPPORTING STAFF AT THE MOMENT OF THE TIME OUT IN THE PROCEDURE ROOM. USING A 25-GAUGE NEEDLE, TRIGGER POINTS WERE INJECTED AT THE RIGHT AND LEFT SHOULDER AREA WITH A TOTAL OF 40 ML OF BUPIVACAINE 0.25% AND KENALOG 40 MG. THERE WAS NO EVIDENCE OF BLOOD, PARESTHESIA OR CEREBROSPINAL FLUID DURING THE PROCEDURE. THE PATIENT WAS SENT TO THE RECOVERY ROOM. THE PATIENT WAS MOVING THE EXTREMITIES AND DOING WELL. THERE WAS NO COMPLICATION DURING THE PROCEDURE. EBL LESS THAN 5 ML POST PROCEDURE NOTE THE PROCEDURE DONE WAS DISCUSSED WITH THE PATIENT. THE PATIENT WILL BE SEEN IN A FOLLOW UP IN THE NEXT FEW WEEKS. I AM LOOKING FOR LONG LASTING PAIN RELIEF FOR THE PATIENT WITH THIS INTERVENTION. INSTRUCTIONS WERE GIVEN, QUESTIONS WERE ANSWERED, AND THE PATIENT EXPRESSED UNDERSTANDING AND AGREES WITH THE PLAN. THE PATIENT IS AWARE TO STAY HOME FOR THE NEXT WEEK, IF POSSIBLE, DUE TO COVID-19. I, HEIDI LEDEZMA, DOCUMENTED THE ABOVE INFORMATION ACTING A SCRIBE FOR DR. VAZQUEZ. I HAVE REVIEWED THE ABOVE DOCUMENT, WRITTEN BY HEIDI LEDEZMA, FINANCIAL ADVOCATE, AND I VERIFY THAT IT IS ACCURATE PROCEDURE CODES 92390 INJ TRIGGER POINT 1/2 MUSCL DISPOSITION & COMMUNICATION FOLLOW UP F/UP WITH METAL SPRAY OPERATOR (REASON: POST TPI JUDY SHOULDER) ELECTRONICALLY SIGNED BY RISHI VAZQUEZ MD, MD ON 12/08/2019 AT 05:03 PM EDT DISCLAIMER : THIS IS A VISIT SUMMARY EXTRACTED FROM THE [employer] CHART. IT IS NOT A COPY OF THE [facility] PROGRESS NOTE. KIRILL
== END ==
LOC: M PAIN 08:30
PROVIDERS: ATTEND Anesthesiology
DX: M79.18 Myalgia, other site (principal); Z79.82 Long term (current) use of aspirin; Z79.899 Other long term (current) drug therapy; Z87.891 Personal history of nicotine dependence; Z88.8 Allergy status to other drugs, medicaments and biological substances
CPT/HCPCS: 20552; J3301

== ENCOUNTER → 2019-12-13 | Outpatient (CLI) | payer OTHER ==
[~2019-12-13] MED LIST changes: -BUPIVACAINE HCL 0.25% 10ML VIAL As Ordered ONE; -BUPIVACAINE HCL 0.25% 30ML VIAL As Ordered ONE; -TRIAMCINOLONE ACETONIDE SUSP 40 MG/ML VIAL (J3301) As Ordered ONE
--- NOTE | 2019-12-20 01:25 | ECWPNPC ---
PATIENT NAME: EL LUCAS : 1965 GENDER: MALE VISIT DATE: 12/13/2019 DISCHARGE DATE: 12/13/19 1548 VISIT LOCKED DATE TIME: PHYSICIAN: RISHI VAZQUEZ MD RESOURCE: RISHI VAZQUEZ MD REASON FOR APPOINTMENT 1. DX FOLLOW UP-KNEE HISTORY OF PRESENT ILLNESS GENERAL: 54-YEAR-OLD MALE PATIENT WITH A HISTORY OF CHRONIC KNEE PAIN. THE PATIENT HAD A DIAGNOSTIC NERVE BLOCK NUMBER 1 ON THE LEFT KNEE. THE PATIENT STATES THAT THE PAIN HAS GONE DOWN AND HE IS HAPPY WITH THE RESULTS. THE PATIENT STATED THAT HIS RIGHT KNEE STILL HURTS. PATIENT DENIES UNEXPLAINABLE WEIGHT LOSS, FEVER, CHILLS, NEW CHANGES ON HIS URINARY OR BOWEL CONTROL. FALL RISK SCREENING: SCREENING :NO FALLS REPORTED IN THE LAST YEAR PAIN SCREENING: PATIENT HAS A COMPLAINT OF ACUTE OR CHRONIC PAIN :NO NURSING NOTE: -. PAIN CENTER INTAKE QUESTIONS: DO YOU HAVE A HISTORY OF MRSA? :NO DO YOU TAKE A BLOOD THINNERS? :NO DO YOU HAVE ANY BLEEDING DISORDERS? :NO ANY NEW NUMBNESS OR WEAKNESS IN YOUR LEGS OR ARMS? :NO ANY PACEMAKER,DEFIBRILLATOR, OR DORSAL COLUMN STIMULATOR? :NO DO YOU HAVE ANY RASHES OR OPEN SORES? :NO ARE YOU ALLERGIC TO IV DYE? :NO ARE YOU DIABETIC? :NO ANY NEW PROBLEMS WITH YOUR MEDICATIONS? :NO HAVE YOU RECEIVED A VACCINE IN THE PAST 30 DAYS? :NO DO YOU PLAN TO RECEIVE A VACCINE IN THE NEXT 21 DAYS? :NO DO YOU NEED ANY PRESCRIPTION? :NO DO YOU TAKE ANY IMMUNOSUPPRESSIVE MEDICATIONS? :NO IS THERE A CHANCE YOU COULD BE ? :NO ARE YOU BREAST FEEDING? :NO CURRENT MEDICATIONS TAKING ACETAMINOPHEN 500 MG CAPSULE 1 CAPSULE NEEDED ORALLY EVERY 6 HRS TAKING ASPIRIN 81 MG TABLET CHEWABLE DIRECTED ORALLY TAKING CARBOXYMETHYLCELLULOSE SOD PF 0.5 % SOLUTION DIRECTED OPHTHALMIC TAKING CETIRIZINE HCL 10 MG TABLET 1 TABLET ORALLY ONCE A DAY TAKING COLACE 100 MG CAPSULE 1 CAPSULE NEEDED ORALLY ONCE A DAY TAKING IRON 325 (65 FE) MG TABLET 1 TABLET ORALLY ONCE A DAY TAKING FLONASE ALLERGY RELIEF 50 MCG/ACT SUSPENSION 1 SPRAY IN EACH NOSTRIL NASALLY ONCE A DAY TAKING OMEPRAZOLE 40 MG CAPSULE DELAYED RELEASE 1 CAPSULE 30 MINUTES BEFORE MORNING MEAL ORALLY ONCE A DAY TAKING OXYCODONE HCL 10 MG TABLET 1 TABLET NEEDED ORALLY EVERY 6 HRS TAKING ROPINIROLE HCL 1 MG TABLET 1 TABLET 1 TO 3 HOURS BEFORE BEDTIME ORALLY ONCE A DAY TAKING ROPINIROLE HCL 2 MG TABLET 1 TABLET 1 TO 3 HOURS BEFORE BEDTIME ORALLY ONCE A DAY TAKING VITAMIN C 250 MG TABLET CHEWABLE 1 TABLET ORALLY ONCE A DAY TAKING ROSUVASTATIN CALCIUM 40 MG TABLET 1 TABLET ORALLY ONCE A DAY MEDICATION LIST REVIEWED AND RECONCILED WITH THE PATIENT PAST MEDICAL HISTORY GERD RESTLESS LEG SYNDROME HIGH CHOLESTEROL BILAT KNEE PAIN BILAT SHOULDER PAIN LUMBOSACRAL OR CERVICAL STRAIN LOW IRON ALLERGIES DULOXETINE HCL: UNSURE - ALLERGY GABAPENTIN: IMPOTENCE - SIDE EFFECTS GEMFIBROZIL: UNSURE - ALLERGY SURGICAL HISTORY RIGHT KNEE REPAIR X6 LEFT KNEE SURGERY X5 RIGHT RIB REMOVED CHOLECYSTECTOMY LEFT BREAST LUMPECTOMY FAMILY HISTORY FATHER: 59 YRS, CVA MOTHER: 35 YRS, INTERNAL BLEEDING 2 BROTHER(S) , 1 SISTER(S) - HEALTHY. 2 SON(S) - HEALTHY. SOCIAL HISTORY GENERAL: TOBACCO USE ARE YOU A:FORMER SMOKER HOW LONG HAS IT BEEN SINCE YOU LAST SMOKED?> 10 YEARS LATEX QUESTIONNAIRE LATEX ALLERGY : HAVE YOU EVER DEVELOPED ANY TYPE OF REACTION AFTER HANDLING LATEX PRODUCTS SUCH RUBBER GLOVES, CONDOMS, DIAPHRAGMS, BALLOONS, SOCKS, OR UNDERWEAR?NO LATEX ALLERGY : HAVE YOU EVER DEVELOPED ANY TYPE OF REACTION DURING OR AFTER DENTAL APPOINTMENT, VAGINAL/RECTAL EXAMINATION, SURGICAL PROCEDURE, OR ANY OTHER EXPOSURE?NO DATE ASKED : 12/07/2019 LATEX RISK : HAVE YOU EVER HAD ANY DIFFICULTY BREATHING OR HIVES AFTER EATING OR HANDLING ANY FRUITS, OR VEGETABLES; SUCH KIWI, BANANAS, STONE FRUITS, OR CHESTNUTSNO LATEX RISK : DO YOU HAVE A PREVIOUS PERSONAL HISTORY OF MORE THAN NINE SURGERIES, SPINA BIFIDA, OR REPEATED CATHERIZATIONS? YES - PLEASE INDICATE : > 9 SURGERIES LATEX RISK : ARE YOU FREQUENTLY EXPOSED TO LATEX PRODUCTS IN YOUR OCCUPATION?NO ALCOHOL SCREENING DID YOU HAVE A DRINK CONTAINING ALCOHOL IN THE PAST YEAR?NO POINTS0 INTERPRETATIONNEGATIVE RECREATIONAL DRUG USE DRUG USE?NO CAFFEINE CAFFEINE USE?YES HOW OFTEN AND HOW MUCH? 2/DAY COKE PENTECOSTALISM [id number] MU-ISM LANGUAGE LANGUAGES SPOKEN:KYRGYZ EDUCATION LEVEL OF EDUCATION:NOT FINISHED COLLEGE LEARNING BARRIERS / SPECIAL NEEDS BARRIERS TO LEARNING?NO HEARING IMPAIRED?NO VISION IMPAIRED?YES COGNITIVELY IMPAIRED?NO :CORRECTIVE LENSES READINESS TO LEARN?YES LEARNING PREFERENCES?NO LEARNING CAPABILITIES PRESENT?YES EMOTIONAL BARRIERS?NO SPECIAL DEVICES?YES :CANE HUMAN SERVICE WORKER NEEDED?NO DOMESTIC VIOLENCE DO YOU FEEL SAFE IN YOUR ENVIRONMENT?YES OCCUPATION: DISABLED. DIET: REGULAR. MARITAL STATUS: . OTHERS AT HOME: SPOUSE. PAIN CLINIC PFS, CLERGY, PUBLIC HEALTH REFERRALS HAS THE PATIENT BEEN EDUCATED REGARDING HIS/HER PLAN OF CARE?YES HAS THE PATIENT BEEN EDUCATED REGARDING PAIN, THE RISK FOR PAIN, THE IMPORTANCE OF EFFECTIVE PAIN MANAGEMENT, AND THE PAIN ASSESSMENT PROCESS?YES HOUSING: RENTS APARTMENT. ADVANCE DIRECTIVE ADVANCE DIRECTIVE DISCUSSED WITH PATIENT:YES PT DOES NOT HAVE ANY ADVANCED DIRECTIVES AND HE DECLINES INFORMATION ON HCP AT THIS TIME HOSPITALIZATION/MAJOR DIAGNOSTIC PROCEDURE SURGERIES REVIEW OF SYSTEMS CONSTITUTIONAL: ANY RECENT FEVER NO . CHILLS NO . WEIGHT CHANGE OF UNKNOWN REASONS NO . GASTROENTEROLOGY: NEW UNEXPLAINABLE CHANGES IN BOWEL CONTROL NO . CONSTIPATION NO . GENITOURINARY: ANY NEW CHANGE IN BLADDER CONTROL? NO . NEUROLOGY: NEW ONSET DIZZINESS OR NEUROLOGICAL CHANGES NOT MENTIONED NO . NEW NUMBNESS OR PAIN PATTERNS NOT MENTIONED AND PERTINENT TO TODAY'S VISIT NO . CARDIOLOGY: NEW CHEST PRESSURE NO . NEW CHEST PAIN NO . RESPIRATORY: UNEXPLAINABLE COUGH NO . NEW SHORTNESS OF BREATH NO . VITAL SIGNS WT 214.8 LBS, HT 59 IN, BMI 43.38 INDEX, BP 139/60 MM HG, HR 74 /MIN, RR 18 /MIN, TEMP 96.6 F, OXYGEN SAT % 97%, NA INITIALS SC 14:22. EXAMINATION GENERAL EXAMINATION: THE PATIENT IS ALERT, ORIENTED TIMES THREE AND COOPERATIVE. TENDERNESS OVER THE RIGHT KNEE THAT IS PAINFUL TO TOUCH. THE PATIENT WALKS WITH A CANE WITH THE RIGHT HAND AND HAS A LIMP TO THE RIGHT. THE PATIENTS RIGHT LEG IS WEAKER THAN THE LEFT ON FLEXION AND EXTENSION. MRI OF THE RIGHT KNEE DATED 08/25/2019 SHOWS OSTEOARTHRITIS OF THE RIGHT KNEE AND TENDINITIS OVER THE PATELLA. ASSESSMENTS OSTEOARTHRITIS OF RIGHT KNEE - M17.11 (PRIMARY) TREATMENT OSTEOARTHRITIS OF RIGHT KNEE NOTES: REQUEST DIAGNOSTIC NERVE BLOCK ON THE RIGHT KNEE NUMBER 1, BOOK THE PATIENT WHEN READY. CLINICAL NOTES: WE DISCUSSED SEVERAL ALTERNATIVES WITH MR. LUCAS REGARDING HIS TREATMENT OPTIONS AND CARE. AFTER TALKING WITH THE PATIENT AND EXAMINING HIM, WE ARE GOING TO REQUEST A DIAGNOSTIC NERVE BLOCK ON THE RIGHT KNEE NUMBER 1. THE PATIENT IS ABLE TO BE BOOKED AFTER HE IS APPROVED. THE PATIENT KNOWS TO CALL THE OFFICE IF HE HAS ANY QUESTIONS OR CONCERNS. THE PATIENT UNDERSTANDS AND IS IN AGREEMENT WITH THE TREATMENT PLAN. I, HEIDI LEDEZMA, DOCUMENTED THE ABOVE INFORMATION ACTING A SCRIBE FOR DR. VAZQUEZ. I HAVE REVIEWED THE ABOVE DOCUMENT, WRITTEN BY HEIDI LEDEZMA, MS ACCESS DATABASE DEVELOPER, AND I VERIFY THAT IT IS ACCURATE. PROCEDURE CODES FA211 ESTABILISHED PATIENT [facility] CHARGE [id number] OFFICE/OUTPATIENT VISIT EST DISPOSITION & COMMUNICATION FOLLOW UP REQUEST DIAGNOSTIC #1 ON THE RIGHT KNEE (REASON: REQUEST DIAGNOSTIC #1 ON THE RIGHT KNEE, BOOK AFTER REQUEST APPROVED) ELECTRONICALLY SIGNED BY RISHI VAZQUEZ MD, MD ON 12/19/2019 AT 06:48 PM EDT DISCLAIMER : THIS IS A VISIT SUMMARY EXTRACTED FROM THE [employer] CHART. IT IS NOT A COPY OF THE [email or web address] PROGRESS NOTE. KIRILL
== END ==
LOC: M PAIN 14:30
PROVIDERS: ATTEND Anesthesiology
DX: M17.11 Unilateral primary osteoarthritis, right knee (principal)

== ENCOUNTER → 2019-12-28 | Outpatient (CLI) | payer OTHER | LOC: M LABSMTC 13:50 | PROVIDERS: ATTEND Anesthesiology | DX: Z11.59 Encounter for screening for other viral diseases (principal) | CPT/HCPCS: C9803; U0003 ==

== ENCOUNTER → 2020-01-02 | Outpatient (CLI) | payer OTHER ==
[~2020-01-02] MED LIST changes: -ASPI81TA85 PO; +ASPI81TA86 PO; +BUPIVACAINE HCL 0.25% 30ML VIAL As Ordered ONE; +ISOVUE-M 300 61% 15ML VIAL As Ordered ONE; +LIDOCAINE 1% SDV 30ML VIAL As Ordered ONE
--- NOTE | 2020-01-02 15:25 | REP ---
RIGHT KNEE: Eight views. HISTORY: Intra procedural imaging. Diagnostic right knee injection. 42 seconds of fluoroscopy time is reported. FINDINGS: A sequence of eight last image hold fluoroscopically obtained spot radiographs of the right knee document various needle position and contrast injections associated with right knee injection procedure. Electronically Signed by Hill Lopez MD 01/02/2020 04:59 P
--- NOTE | 2020-01-04 01:25 | ECWPNPC ---
PATIENT NAME: EL LUCAS : 1965 GENDER: MALE VISIT DATE: 01/02/2020 DISCHARGE DATE: 01/02/20 1355 VISIT LOCKED DATE TIME: PHYSICIAN: RISHI VAZQUEZ MD RESOURCE: RISHI VAZQUEZ MD REASON FOR APPOINTMENT 1. DIAGNOSTIC BLOCK #1 RIGHT KNEE- PAT COMPLETED HISTORY OF PRESENT ILLNESS GENERAL: -. FALL RISK SCREENING: SCREENING :NO FALLS REPORTED IN THE LAST YEAR PAIN SCREENING: PATIENT HAS A COMPLAINT OF ACUTE OR CHRONIC PAIN :YES LOCATION OF PAIN:KNEES RIGHT INTENSITY OF PAIN (SCALE OF 1 TO 10):8 WHAT DOES YOUR PAIN FEEL LIKE:ACHING, BURNING, CONTINOUS, SHARP, STABBING DURATION:CONTINOUS PAIN IS INCREASED BY:PROLONGED STANDING PAIN IS DECREASED BY:USE OF PAIN MEDICATIONS NURSING NOTE: -. PAIN CENTER INTAKE QUESTIONS: DO YOU HAVE A HISTORY OF MRSA? :NO DO YOU TAKE A BLOOD THINNERS? :NO DO YOU HAVE ANY BLEEDING DISORDERS? :YES IRON DEF ANEMIA ANY NEW NUMBNESS OR WEAKNESS IN YOUR LEGS OR ARMS? :NO ANY PACEMAKER,DEFIBRILLATOR, OR DORSAL COLUMN STIMULATOR? :NO DO YOU HAVE ANY RASHES OR OPEN SORES? :NO ARE YOU ALLERGIC TO IV DYE? :NO ARE YOU DIABETIC? :NO ANY NEW PROBLEMS WITH YOUR MEDICATIONS? :NO HAVE YOU RECEIVED A VACCINE IN THE PAST 30 DAYS? :YES IF SO WHAT VACCINE AND WHEN? SHINGLES 12/29/2019 DO YOU PLAN TO RECEIVE A VACCINE IN THE NEXT 21 DAYS? :NO DO YOU TAKE ANY IMMUNOSUPPRESSIVE MEDICATIONS? :NO ANY HISTORY OF SEIZURES? :NO ANY HISTORY OF CARDIAC ISSUES OR EVENTS? :NO DO YOU HAVE SLEEP APNEA? :NO ANY RECENT HEAD INJURY? :NO DO YOU HAVE ANY NEW INFECTIONS? :NO IS THERE A CHANCE YOU COULD BE ? :NO ARE YOU BREAST FEEDING? :NO WHEN DID YOU LAST EAT? : -LAST NIGHT WHEN DID YOU LAST DRINK? : -0600 THIS MORNING WHAT DID YOU LAST DRINK? : -WATER NAME OF PERSON DRIVING YOU HOME? : DO YOU HAVE ANY OTHER QUESTIONS OR CONCERNS? : - CURRENT MEDICATIONS TAKING ACETAMINOPHEN 500 MG CAPSULE 1 CAPSULE NEEDED ORALLY EVERY 6 HRS, NOTES: NOT LATELY TAKING ASPIRIN 81 MG TABLET CHEWABLE DIRECTED ORALLY , NOTES: 01-01-20 07 TAKING CARBOXYMETHYLCELLULOSE SOD PF 0.5 % SOLUTION DIRECTED OPHTHALMIC , NOTES: 01-02-20 07 TAKING CETIRIZINE HCL 10 MG TABLET 1 TABLET ORALLY ONCE A DAY, NOTES: 01-01-20 1300 TAKING COLACE 100 MG CAPSULE 1 CAPSULE NEEDED ORALLY ONCE A DAY, NOTES: 01-01-20 1900 TAKING IRON 325 (65 FE) MG TABLET 1 TABLET ORALLY ONCE A DAY, NOTES: 01-01-20699 TAKING FLONASE ALLERGY RELIEF 50 MCG/ACT SUSPENSION 1 SPRAY IN EACH NOSTRIL NASALLY ONCE A DAY, NOTES: NOT LATELY TAKING OMEPRAZOLE 40 MG CAPSULE DELAYED RELEASE 1 CAPSULE 30 MINUTES BEFORE MORNING MEAL ORALLY ONCE A DAY, NOTES: 01-01-20 2300 TAKING OXYCODONE HCL 10 MG TABLET 1 TABLET NEEDED ORALLY EVERY 6 HRS, NOTES: 01-01-20699 TAKING ROPINIROLE HCL 1 MG TABLET 1 TABLET 1 TO 3 HOURS BEFORE BEDTIME ORALLY ONCE A DAY, NOTES: 12-31-192199 TAKING ROPINIROLE HCL 2 MG TABLET 1 TABLET 1 TO 3 HOURS BEFORE BEDTIME ORALLY ONCE A DAY, NOTES: 01-01-202199 TAKING VITAMIN C 250 MG TABLET CHEWABLE 1 TABLET ORALLY ONCE A DAY, NOTES: 01-02-20699 TAKING ROSUVASTATIN CALCIUM 40 MG TABLET 1 TABLET ORALLY ONCE A DAY, NOTES: 01-01-202199 MEDICATION LIST REVIEWED AND RECONCILED WITH THE PATIENT PAST MEDICAL HISTORY GERD RESTLESS LEG SYNDROME HIGH CHOLESTEROL BILAT KNEE PAIN BILAT SHOULDER PAIN LUMBOSACRAL OR CERVICAL STRAIN LOW IRON ALLERGIES DULOXETINE HCL: UNSURE - ALLERGY GABAPENTIN: IMPOTENCE - SIDE EFFECTS GEMFIBROZIL: UNSURE - ALLERGY SURGICAL HISTORY RIGHT KNEE REPAIR X6 LEFT KNEE SURGERY X5 RIGHT RIB REMOVED CHOLECYSTECTOMY LEFT BREAST LUMPECTOMY FAMILY HISTORY FATHER: 59 YRS, CVA MOTHER: 35 YRS, INTERNAL BLEEDING 2 BROTHER(S) , 1 SISTER(S) - HEALTHY. 2 SON(S) - HEALTHY. SOCIAL HISTORY GENERAL: TOBACCO USE ARE YOU A:FORMER SMOKER HOW LONG HAS IT BEEN SINCE YOU LAST SMOKED?> 10 YEARS LATEX QUESTIONNAIRE LATEX ALLERGY : HAVE YOU EVER DEVELOPED ANY TYPE OF REACTION AFTER HANDLING LATEX PRODUCTS SUCH RUBBER GLOVES, CONDOMS, DIAPHRAGMS, BALLOONS, SOCKS, OR UNDERWEAR?NO LATEX ALLERGY : HAVE YOU EVER DEVELOPED ANY TYPE OF REACTION DURING OR AFTER DENTAL APPOINTMENT, VAGINAL/RECTAL EXAMINATION, SURGICAL PROCEDURE, OR ANY OTHER EXPOSURE?NO LATEX RISK : HAVE YOU EVER HAD ANY DIFFICULTY BREATHING OR HIVES AFTER EATING OR HANDLING ANY FRUITS, OR VEGETABLES; SUCH KIWI, BANANAS, STONE FRUITS, OR CHESTNUTSNO LATEX RISK : DO YOU HAVE A PREVIOUS PERSONAL HISTORY OF MORE THAN NINE SURGERIES, SPINA BIFIDA, OR REPEATED CATHERIZATIONS? YES - PLEASE INDICATE : > 9 SURGERIES LATEX RISK : ARE YOU FREQUENTLY EXPOSED TO LATEX PRODUCTS IN YOUR OCCUPATION?NO DATE ASKED : 01/01/2020 ALCOHOL SCREENING DID YOU HAVE A DRINK CONTAINING ALCOHOL IN THE PAST YEAR?NO POINTS0 INTERPRETATIONNEGATIVE RECREATIONAL DRUG USE DRUG USE?NO CAFFEINE CAFFEINE USE?YES HOW OFTEN AND HOW MUCH? 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 DIET: REGULAR. MARITAL STATUS: . OTHERS AT HOME: SPOUSE. PAIN CLINIC PFS, CLERGY, PUBLIC HEALTH REFERRALS HAS THE PATIENT BEEN EDUCATED REGARDING HIS/HER PLAN OF CARE?YES HAS THE PATIENT BEEN EDUCATED REGARDING PAIN, THE RISK FOR PAIN, THE IMPORTANCE OF EFFECTIVE PAIN MANAGEMENT, AND THE PAIN ASSESSMENT PROCESS?YES HOUSING: RENTS APARTMENT. ADVANCE DIRECTIVE ADVANCE DIRECTIVE DISCUSSED WITH PATIENT:YES PT DOES NOT HAVE ANY ADVANCED DIRECTIVES AND HE DECLINES INFORMATION ON HCP AT THIS TIME HOSPITALIZATION/MAJOR DIAGNOSTIC PROCEDURE SURGERIES VITAL SIGNS WT 212 LBS, HT 59 IN, BMI 42.81 INDEX, BP 126/74 MM HG, HR 78 /MIN, RR 18 /MIN, TEMP 97.6 F, OXYGEN SAT % 97%, NA INITIALS SC 12:08. EXAMINATION GENERAL EXAMINATION: THE PATIENT IS ALERT, ORIENTED TIMES THREE AND COOPERATIVE. HEART SHOWS REGULAR RHYTHM, NO MURMURS AND NO GALLOPS. LUNGS ARE CLEAR TO AUSCULTATION. ASSESSMENTS PAIN IN RIGHT KNEE - M25.561 (PRIMARY) TREATMENT PAIN IN RIGHT KNEE [facility] FACET BLOCK (PAIN)[id number] OTHERS NOTES: PRE PROCEDURE PHONE CALL COMPLETED 01/01/2020 1650 NLJ. PROCEDURES PAIN NURSING RECORD PROCEDURE IN ROOM 1300, PHYSICIAN IN ROOM 1308, START 1318, FINISH 1335, STEROID NONE ..JUST BUPIVICAINE, ECG NORMAL SINUS, PATIENT SHIELDED YES, SAFETY STRAP YES, DRESSING TEGADERM LOC: 1. ALERT, ORIENTED RESP: 1. REGULAR, NO DYSPNEA COLOR: 1. PINK SKIN: 1. WARM, DRY POSITION: 2. SUPINE VITALS: 151/92 97 74 18 KGULLO RN 1300 142/65 98 75 18 KGULLO RN 1315 132/80 98 76 18 KGULLO RN 1330 151/92 97% 77 18 KGULLO SPACE OPERATIONS OFFICER: DRESSING SITE DRY AND INTACT APPLIED BY DR GEOGRE IV N/A, TEACHING COMPLETED, PATIENT ACKNOWLEDGES UNDERSTANDING YES PRE PROCEDURE DIAGNOSIS RIGHT KNEE OSTEOARTHRITIS POST PROCEDURE DIAGNOSIS RIGHT KNEE OSTEOARTHRITIS PROCEDURE DIAGNOSTIC NUMBER 1 BLOCK FOR THE RIGHT KNEE. BLOCK OF SUPERIOR MEDIAL GENICULAR NERVE, SUPERIOR LATERAL GENICULAR NERVE INFERIOR MEDIAL GENICULAR NERVE AND THE TERMINAL BRANCH OF THE VASTUS INTERMEDIUS NERVE BLOCKS (SUPRAPATELLAR NERVE) SURGEON DR. RISHI VAZQUEZ ELECTRONIC SEMICONDUCTOR PROCESSOR NONE ANESTHESIA LOCAL PRE PROCEDURE NOTE THE PATIENT HAS A HISTORY OF RIGHT KNEE PAIN. I EVALUATED THE PATIENT AND REVIEWED THE CHART. I DISCUSSED THE RISK, BENEFITS AND ALTERNATIVES OF THE PROCEDURE. THE PATIENT UNDERSTANDS AND AGREES AND WOULD LIKE TO MOVE FORWARD WITH THE PROCEDURE. AGREED WITH THE PATIENT, WE ARE DOING THIS PROCEDURE TO DETERMINE IF THE PATIENT IS A CANDIDATE FOR A RADIOFREQUENCY ABLATION. THE PATIENT DENIES UNEXPLAINABLE WEIGHT LOSS, FEVER, CHILLS, OR CHANGES IN URINARY OR BOWEL CONTROL. THE PATIENT IS COVID-19 NEGATIVE DESCRIPTION OF PROCEDURE AFTER CONSENT WAS TAKEN, THE PATIENT WAS BROUGHT TO THE PROCEDURE ROOM AND PLACED IN THE SUPINE POSITION WITH THE RIGHT KNEE FLEXED. THE KNEE WAS CLEANED WITH BETADINE SOLUTION AND DRAPED ASEPTICALLY. THE PROCEDURE WAS DONE UNDER STERILE CONDITIONS. A TIMEOUT WAS PERFORMED WHERE LATERALITY AND THE SITE OF THE PROCEDURE WERE CHECKED AND CONFIRMED WITH EVERYONE IN THE ROOM. UNDER FLUOROSCOPIC GUIDANCE, THE TARGET POINTS WERE SELECTED AT THE INTERSECTION OF THE SUPERIOR LATERAL AND MEDIAL EPIPHYSIS AND DIAPHYSIS, THE INFERIOR MEDIAL EPIPHYSIS AND DIAPHYSIS AND 4 CM ABOVE THE SUPERIOR BORDER OF THE PATELLA. LIDOCAINE 1%, 0.2 ML, WAS INJECTED INTO THE SKIN AT EACH INSERTION POINT. SPINAL NEEDLES, 22-GAUGE, WERE ADVANCED UNDER AP VIEW UNTIL THE PERIOSTEUM WAS REACHED. THEN, I WENT TO THE LATERAL VIEW AND THE NEEDLE WAS ADVANCED AFTER PROPER BONY ALIGNMENT TO 50% DEEP OF THE SHAFT OF THE BONE IN EACH NERVE, EXCEPT FOR THE SUPRAPATELLAR NERVE, WHICH WAS LEFT IN THE PRIOR POSITION. ISOVUE-M DYE 30%, 0.1 ML, WAS INJECTED SHOWING ADEQUATE SPREAD OF THE DYE. THEN, 0.5 ML OF BUPIVACAINE 0.25% WAS INJECTED AT EACH SITE. THERE WAS NO EVIDENCE OF PARESTHESIA OR BLOOD. THERE WERE NO COMPLICATIONS DURING THE PROCEDURE. THE PATIENT WAS SENT TO THE RECOVERY ROOM FOR OBSERVATION. ESTIMATED BLOOD LOSS WAS LESS THAN 5 ML. FLUOROSCOPY TIME WAS 42 SECONDS POST PROCEDURE NOTE THE PATIENT WILL DOCUMENT PAIN LEVEL AND RESPONSE TO THIS PROCEDURE EVERY 1 HOUR. THE PATIENT WILL BE SEEN IN A FOLLOW UP IN THE NEXT FEW WEEKS. INSTRUCTIONS WERE GIVEN, QUESTIONS WERE ANSWERED, AND THE PATIENT EXPRESSED UNDERSTANDING AND AGREES WITH THE PLAN. I, HEIDI LEDEZMA, DOCUMENTED THE ABOVE INFORMATION ACTING A SCRIBE FOR DR. VAZQUEZ. I HAVE REVIEWED THE ABOVE DOCUMENT, WRITTEN BY HEIDI LEDEZMA, NODULIZER, AND I VERIFY THAT IT IS ACCURATE PROCEDURE CODES 38092 NJX AA&/STRD GNCLR NRV BRNC, MODIFIERS: RT DISPOSITION & COMMUNICATION FOLLOW UP DR. Garcia NEXT WEEK 01/09/2020 (REASON: POST DIAGNOSTIC RIGHT KNEE #1-F/UP WITH DR. Garcia ON Wednesday01/09/2020) ELECTRONICALLY SIGNED BY RISHI VAZQUEZ MD, MD ON 01/03/2020 AT 12:15 PM EDT DISCLAIMER : THIS IS A VISIT SUMMARY EXTRACTED FROM THE [employer] CHART. IT IS NOT A COPY OF THE [email or web address] PROGRESS NOTE. MTDD
== END ==
LOC: M PAIN 12:00
PROVIDERS: ATTEND Anesthesiology
DX: M25.561 Pain in right knee (principal)
CPT/HCPCS: 64454; Q9967

== ENCOUNTER → 2020-01-09 | Outpatient (POV) | payer OTHER ==
[~2020-01-09] MED LIST changes: -BUPIVACAINE HCL 0.25% 30ML VIAL As Ordered ONE; -ISOVUE-M 300 61% 15ML VIAL As Ordered ONE; -LIDOCAINE 1% SDV 30ML VIAL As Ordered ONE
== END ==
LOC: M PAIN 14:00
PROVIDERS: ATTEND Anesthesiology
DX: M25.562 Pain in left knee (principal)

== ENCOUNTER → 2020-01-31 | Outpatient (POV) | payer OTHER ==
[~2020-01-31] MED LIST changes: +BUPIVACAINE HCL 0.25% 30ML VIAL As Ordered ONE; +ISOVUE-M 300 61% 15ML VIAL As Ordered ONE; +LIDOCAINE 1% SDV 30ML VIAL As Ordered ONE
--- NOTE | 2020-03-06 08:37 | REP ---
INTRAPROCEDURAL LEFT KNEE RADIOGRAPHS: 16-VIEWS HISTORY: Injection procedure for pain. 71 seconds of fluoroscopy time is reported. FINDINGS: A series of 16 last image hold fluoroscopically obtained spot radiographs of the left knee document various needle positions and contrast injections associated with injection procedure. SONALD
== END ==
LOC: M PAIN 09:45
PROVIDERS: ATTEND Anesthesiology
DX: M25.562 Pain in left knee (principal); M13.162 Monoarthritis, not elsewhere classified, left knee

== ENCOUNTER → 2020-02-24 | Outpatient (CLI) | payer OTHER ==
[~2020-02-24] MED LIST changes: -BUPIVACAINE HCL 0.25% 30ML VIAL As Ordered ONE; -ISOVUE-M 300 61% 15ML VIAL As Ordered ONE; -LIDOCAINE 1% SDV 30ML VIAL As Ordered ONE
== END ==
LOC: M LABSMTC 10:01
PROVIDERS: ATTEND Anesthesiology
DX: Z20.828 Contact with and (suspected) exposure to other viral communicable diseases (principal)
CPT/HCPCS: C9803; U0003

== ENCOUNTER → 2020-02-29 | Outpatient (CLI) | payer OTHER ==
[~2020-02-29] MED LIST changes: +BUPIVACAINE HCL 0.25% 30ML VIAL As Ordered ONE; +ISOVUE-M 300 61% 15ML VIAL As Ordered ONE; +LIDOCAINE 1% SDV 30ML VIAL As Ordered ONE; -MONT10TA4 PO; +MONT5TAB2 PO
--- NOTE | 2020-03-13 11:56 | REP ---
FLUORO GUIDANCE: The images were reviewed with Dr. Lopez. The patient has a history of pain. The portable C-ARM was provided in the OR for Dr. Juana Conte for fluoroscopic guidance. Five intraoperative last image hold fluoro spot films were obtained for needle placement verification for right knee injection. The films are on the [employer] system and are available for review. 41 seconds of fluoroscopy time was utilized for this procedure. KIRILL
== END ==
LOC: M PAIN 10:56
PROVIDERS: ATTEND Anesthesiology
DX: M13.162 Monoarthritis, not elsewhere classified, left knee (principal); M12.862 Other specific arthropathies, not elsewhere classified, left knee; M25.562 Pain in left knee; G89.29 Other chronic pain; K21.9 Gastro-esophageal reflux disease without esophagitis; G25.81 Restless legs syndrome; Z88.8 Allergy status to other drugs, medicaments and biological substances; Z79.82 Long term (current) use of aspirin; Z79.899 Other long term (current) drug therapy
CPT/HCPCS: 64454; Q9967

== ENCOUNTER → 2020-03-20 | Outpatient (CLI) | payer OTHER ==
[~2020-03-20] MED LIST changes: -BUPIVACAINE HCL 0.25% 30ML VIAL As Ordered ONE; -ISOVUE-M 300 61% 15ML VIAL As Ordered ONE; -LIDOCAINE 1% SDV 30ML VIAL As Ordered ONE; +MONT10TA4 PO; -MONT5TAB2 PO
--- NOTE | 2020-03-29 03:02 | ECWPNPC ---
PATIENT NAME: EL LUCAS : 1965 GENDER: MALE VISIT DATE: 03/20/2020 DISCHARGE DATE: 03/20/20 1615 VISIT LOCKED DATE TIME: PHYSICIAN: RISHI VAZQUEZ MD RESOURCE: RISHI VAZQUEZ MD REASON FOR APPOINTMENT 1. PRE SEDATE HISTORY OF PRESENT ILLNESS GENERAL: 55-YEAR-OLD MALE PATIENT WITH A HISTORY OF CHRONIC KNEE PAIN. WE DID A DIAGNOSTIC TEST OF THE RIGHT KNEE A FEW WEEKS AGO TO CONSIDER RADIOFREQUENCY ON THE RIGHT KNEE. BEFORE THE INJECTION, THE PAIN WAS 10/10 AND AFTER WAS 0/10. THE PATIENT FORGOT TO BRING IN HIS PAIN DIARY, BUT STATES THAT THE PAIN WENT DOWN DESCRIBED. THE PATIENT WAS ABLE TO MOVE MUCH BETTER AFTER THE INJECTION. THE PATIENT HAS DONE DIAGNOSTIC TESTS OVER THE LEFT KNEE IN THE PAST WELL AND REPORTS THAT THE PAIN WENT DOWN BOTH TIMES. THE PATIENT STATES THAT HE HAS HAD 5 SURGERIES ON THE LEFT KNEE AND 6 ON THE RIGHT. THE PATIENT STATES THAT PRESENTLY HIS PAIN IS WORSE OVER THE RIGHT KNEE. HE DESCRIBES THE PAIN STABBING, BURNING, SEVERE WITH A PAIN SCORE RANGING FROM 8-10/10 AND THE LEFT KNEE IS DESCRIBED DULL AND ACHING WITH A PAIN SCORE RANGING FROM 4-6/10. PATIENT DENIES UNEXPLAINABLE WEIGHT LOSS, FEVER, CHILLS, NEW CHANGES ON HIS URINARY OR BOWEL CONTROL. FALL RISK SCREENING: SCREENING :NO FALLS REPORTED IN THE LAST YEAR PAIN SCREENING: PATIENT HAS A COMPLAINT OF ACUTE OR CHRONIC PAIN :YES LOCATION OF PAIN:KNEES RIGHT KNEE INTENSITY OF PAIN (SCALE OF 1 TO 10):10 WHAT DOES YOUR PAIN FEEL LIKE:ACHING, CONTINOUS, STABBING, TENDER, THROBBING, SORE, SHOOTING DURATION:CONTINOUS, CONSTANT, STEADY PAIN IS INCREASED BY:ACTIVITIES MOVEMENT, EVERYTHING PAIN IS DECREASED BY:OTHERS NO RELIEF NURSING NOTE: -. PAIN CENTER INTAKE QUESTIONS: DO YOU HAVE A HISTORY OF MRSA? :NO DO YOU TAKE A BLOOD THINNERS? :YES ASPIRIN 81MG DAILY DO YOU HAVE ANY BLEEDING DISORDERS? :NO ANY NEW NUMBNESS OR WEAKNESS IN YOUR LEGS OR ARMS? :NO ANY PACEMAKER,DEFIBRILLATOR, OR DORSAL COLUMN STIMULATOR? :NO DO YOU HAVE ANY RASHES OR OPEN SORES? :NO ARE YOU ALLERGIC TO IV DYE? :NO ARE YOU DIABETIC? :NO ANY NEW PROBLEMS WITH YOUR MEDICATIONS? :NO HAVE YOU RECEIVED A VACCINE IN THE PAST 30 DAYS? :YES IF SO WHAT VACCINE AND WHEN? FLU SHOT 2-3 WEEKS AGO DO YOU PLAN TO RECEIVE A VACCINE IN THE NEXT 21 DAYS? :NO DO YOU NEED ANY PRESCRIPTION? :NO DO YOU TAKE ANY IMMUNOSUPPRESSIVE MEDICATIONS? :NO IS THERE A CHANCE YOU COULD BE ? :NO ARE YOU BREAST FEEDING? :NO CURRENT MEDICATIONS TAKING ACETAMINOPHEN 500 MG CAPSULE 1 CAPSULE NEEDED ORALLY EVERY 6 HRS TAKING ASPIRIN 81 MG TABLET CHEWABLE DIRECTED ORALLY TAKING CARBOXYMETHYLCELLULOSE SOD PF 0.5 % SOLUTION DIRECTED OPHTHALMIC TAKING CETIRIZINE HCL 10 MG TABLET 1 TABLET ORALLY ONCE A DAY TAKING COLACE 100 MG CAPSULE 1 CAPSULE NEEDED ORALLY ONCE A DAY TAKING IRON 325 (65 FE) MG TABLET 1 TABLET ORALLY ONCE A DAY TAKING FLONASE ALLERGY RELIEF 50 MCG/ACT SUSPENSION 1 SPRAY IN EACH NOSTRIL NASALLY ONCE A DAY TAKING OMEPRAZOLE 40 MG CAPSULE DELAYED RELEASE 1 CAPSULE 30 MINUTES BEFORE MORNING MEAL ORALLY ONCE A DAY TAKING OXYCODONE HCL 10 MG TABLET 1 TABLET NEEDED ORALLY EVERY 6 HRS TAKING ROPINIROLE HCL 1 MG TABLET 1 TABLET 1 TO 3 HOURS BEFORE BEDTIME ORALLY ONCE A DAY TAKING ROPINIROLE HCL 2 MG TABLET 1 TABLET 1 TO 3 HOURS BEFORE BEDTIME ORALLY ONCE A DAY TAKING VITAMIN C 250 MG TABLET CHEWABLE 1 TABLET ORALLY ONCE A DAY TAKING ROSUVASTATIN CALCIUM 40 MG TABLET 1 TABLET ORALLY ONCE A DAY MEDICATION LIST REVIEWED AND RECONCILED WITH THE PATIENT PAST MEDICAL HISTORY GERD RESTLESS LEG SYNDROME HIGH CHOLESTEROL BILAT KNEE PAIN BILAT SHOULDER PAIN LUMBOSACRAL OR CERVICAL STRAIN LOW IRON ALLERGIES DULOXETINE HCL: UNSURE - ALLERGY GABAPENTIN: IMPOTENCE - SIDE EFFECTS GEMFIBROZIL: UNSURE - ALLERGY SURGICAL HISTORY RIGHT KNEE REPAIR X6 LEFT KNEE SURGERY X5 RIGHT RIB REMOVED CHOLECYSTECTOMY LEFT BREAST LUMPECTOMY FAMILY HISTORY FATHER: 59 YRS, CVA MOTHER: 35 YRS, INTERNAL BLEEDING 2 BROTHER(S) , 1 SISTER(S) - HEALTHY. 2 SON(S) - HEALTHY. SOCIAL HISTORY GENERAL: TOBACCO USE ARE YOU A:FORMER SMOKER HOW LONG HAS IT BEEN SINCE YOU LAST SMOKED?> 10 YEARS LATEX QUESTIONNAIRE LATEX ALLERGY : HAVE YOU EVER DEVELOPED ANY TYPE OF REACTION AFTER HANDLING LATEX PRODUCTS SUCH RUBBER GLOVES, CONDOMS, DIAPHRAGMS, BALLOONS, SOCKS, OR UNDERWEAR?NO LATEX ALLERGY : HAVE YOU EVER DEVELOPED ANY TYPE OF REACTION DURING OR AFTER DENTAL APPOINTMENT, VAGINAL/RECTAL EXAMINATION, SURGICAL PROCEDURE, OR ANY OTHER EXPOSURE?NO LATEX RISK : HAVE YOU EVER HAD ANY DIFFICULTY BREATHING OR HIVES AFTER EATING OR HANDLING ANY FRUITS, OR VEGETABLES; SUCH KIWI, BANANAS, STONE FRUITS, OR CHESTNUTSNO LATEX RISK : DO YOU HAVE A PREVIOUS PERSONAL HISTORY OF MORE THAN NINE SURGERIES, SPINA BIFIDA, OR REPEATED CATHERIZATIONS? YES - PLEASE INDICATE : > 9 SURGERIES LATEX RISK : ARE YOU FREQUENTLY EXPOSED TO LATEX PRODUCTS IN YOUR OCCUPATION?NO DATE ASKED : 03/20/2020 ALCOHOL SCREENING DID YOU HAVE A DRINK CONTAINING ALCOHOL IN THE PAST YEAR?NO POINTS0 INTERPRETATIONNEGATIVE RECREATIONAL DRUG USE DRUG USE?NO CAFFEINE CAFFEINE USE?YES HOW OFTEN AND HOW MUCH? 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 DIET: REGULAR. MARITAL STATUS: . OTHERS AT HOME: SPOUSE. PAIN CLINIC PFS, CLERGY, PUBLIC HEALTH REFERRALS HAS THE PATIENT BEEN EDUCATED REGARDING HIS/HER PLAN OF CARE?YES HAS THE PATIENT BEEN EDUCATED REGARDING PAIN, THE RISK FOR PAIN, THE IMPORTANCE OF EFFECTIVE PAIN MANAGEMENT, AND THE PAIN ASSESSMENT PROCESS?YES HOUSING: RENTS APARTMENT. ADVANCE DIRECTIVE ADVANCE DIRECTIVE DISCUSSED WITH PATIENT:YES PT DOES NOT HAVE ANY ADVANCED DIRECTIVES AND HE DECLINES INFORMATION ON HCP AT THIS TIME HOSPITALIZATION/MAJOR DIAGNOSTIC PROCEDURE SURGERIES REVIEW OF SYSTEMS GLAUCOMA: NOTHYROID DISEASE: NOHYPERTENSION: NOHEART DISEASE: NOLUNG DISEASE: NODIABETES: NOGI DISEASE: NO LIVER DISEASE: NO KIDNEY DISEASE: NOSTERIOD USE: NONEUROLOGICAL DISEASE: NOBACK PROBLEMS: YES, PAINEXTREMITIES: YES, KNEE PAINGENITOURINARY: NOBLEEDING DISORDER: NOASA CLASS: IIAIRWAY CLASS: II. VITAL SIGNS WT 212.0 LBS, HT 59 IN, BMI 42.81 INDEX, BP 132/63 MM HG, HR 85 /MIN, RR 18 /MIN, TEMP 96.5 F, OXYGEN SAT % 94%, SAFE IN ENV? (Y/N) Y, NA INITIALS AW 1506, REVIEWED BY: MANUEL. EXAMINATION GENERAL EXAMINATION: THE PATIENT IS ALERT, ORIENTED TIMES THREE AND COOPERATIVE. HEART SHOWS REGULAR RHYTHM, NO MURMURS AND NO GALLOPS. LUNGS ARE CLEAR TO AUSCULTATION. THE RIGHT LEG IS WEAKER THAN THE LEFT ON FLEXION AND EXTENSION. THERE IS TENDERNESS OF THE RIGHT KNEE AND THE LEFT KNEE. RIGHT KNEE MRI DATED 08/25/2019 SHOWS OSTEOARTHRITIS CHANGES AND STATUS POST SURGERY. ASSESSMENTS PAIN IN RIGHT KNEE - M25.561 (PRIMARY) OSTEOARTHRITIS OF RIGHT KNEE - M17.11 STATUS POST RIGHT KNEE SURGERY - Z98.890 PAIN IN LEFT KNEE - M25.562 OSTEOARTHRITIS OF LEFT KNEE - M17.12 STATUS POST LEFT KNEE SURGERY - Z98.890 TREATMENT PAIN IN RIGHT KNEE CLINICAL NOTES: I DISCUSSED ALTERNATIVES WITH MR. LUCAS. AT THIS STAGE, WE CAN DO A RADIOFREQUENCY ON EITHER SIDE. THE PATIENT IS HAVING MORE PAIN ON THE RIGHT SIDE. SO WE ARE GOING TO MOVE FORWARD WITH RIGHT KNEE COOL RADIOFREQUENCY WITH IV SEDATION DUE TO DISCOMFORT ASSOCIATED WITH THE PROCEDURE. THE PATIENT UNDERSTANDS AND IS IN AGREEMENT WITH THE PLAN. I, HEIDI LEDEZMA, DOCUMENTED THE ABOVE INFORMATION ACTING A SCRIBE FOR DR. VAZQUEZ. I HAVE REVIEWED THE ABOVE DOCUMENT, WRITTEN BY HEIDI LEDEZMA, CLINICAL QUALITY ASSURANCE ASSOCIATE, AND I VERIFY THAT IT IS ACCURATE. PROCEDURE CODES 07126 OFFICE/OUTPATIENT VISIT EST DISPOSITION & COMMUNICATION FOLLOW UP (REASON: Mar COOL RF RIGHT KNEE) ELECTRONICALLY SIGNED BY RISHI VAZQUEZ MD, MD ON 03/28/2020 AT 02:55 PM EDT DISCLAIMER : THIS IS A VISIT SUMMARY EXTRACTED FROM THE [employer] ([facility]) CHART. IT IS NOT A COPY OF THE [employer] [facility] PROGRESS NOTE. MTDD
== END ==
LOC: M PAIN 15:00
PROVIDERS: ATTEND Anesthesiology
DX: M25.561 Pain in right knee (principal); M17.11 Unilateral primary osteoarthritis, right knee; Z98.890 Other specified postprocedural states; M25.562 Pain in left knee; M17.12 Unilateral primary osteoarthritis, left knee; K21.9 Gastro-esophageal reflux disease without esophagitis; E78.00 Pure hypercholesterolemia, unspecified; Z87.891 Personal history of nicotine dependence; Z79.82 Long term (current) use of aspirin; Z79.891 Long term (current) use of opiate analgesic; Z79.899 Other long term (current) drug therapy; Z88.8 Allergy status to other drugs, medicaments and biological substances

== ENCOUNTER → 2020-04-06 | Outpatient (CLI) | payer OTHER | LOC: M LABSMTC 10:53 | PROVIDERS: ATTEND Anesthesiology | DX: Z01.812 Encounter for preprocedural laboratory examination (principal); Z20.828 Contact with and (suspected) exposure to other viral communicable diseases | CPT/HCPCS: C9803; U0003 ==

== ENCOUNTER → 2020-04-11 | Outpatient (CLI) | payer OTHER ==
[~2020-04-11] MED LIST changes: +BUPIVACAINE HCL 0.25% 30ML VIAL As Ordered ONE; +LIDOCAINE 1% SDV 30ML VIAL As Ordered ONE; +MIDAZOLAM INJ 2MG/2ML VIAL (J2250 PER 1MG) As Ordered ONE; -MONT10TA4 PO; +MONT5TAB2 PO; +dexameTHASONE 10MG/1ML VIAL PRES.FREE (J1100 PER 1MG) As Ordered ONE; +fentaNYL 100 MCG/2 ML INJECTION (J3010) As Ordered ONE
--- NOTE | 2020-04-11 17:08 | REP ---
INDICATION: RIGHT KNEE RADIOFREQUENCY. COMPARISON: None. TECHNIQUE: Intraoperative fluoroscopic imaging using portable C-arm technique. FINDINGS: Multiple images demonstrate radiofrequency needles in the soft tissues overlying the distal femur and knee. Total fluoroscopic time 101.7 seconds. IMPRESSION: Images consistent with radiofrequency treatment to the right knee <Electronically signed by Nathanael Lorenzo > 04/11/20 2354
--- NOTE | 2020-04-23 09:35 | ECWPNPC ---
PATIENT NAME: EL LUCAS : 1965 GENDER: MALE VISIT DATE: 04/11/2020 DISCHARGE DATE: 04/11/201813 VISIT LOCKED DATE TIME: PHYSICIAN: RISHI VAZQUEZ MD RESOURCE: RISHI VAZQUEZ MD REASON FOR APPOINTMENT 1. IV SEDATION...RF RIGHT KNEE-PER DOC HISTORY OF PRESENT ILLNESS GENERAL: -. FALL RISK SCREENING: SCREENING :NO FALLS REPORTED IN THE LAST YEAR PAIN SCREENING: PATIENT HAS A COMPLAINT OF ACUTE OR CHRONIC PAIN :YES LOCATION OF PAIN:OTHER: RIGHT KNEE INTENSITY OF PAIN (SCALE OF 1 TO 10):8 WHAT DOES YOUR PAIN FEEL LIKE:ACHING, BURNING, SHARP, STABBING, THROBBING, SHOOTING DURATION:CONTINOUS PAIN IS INCREASED BY:ACTIVITIES PAIN IS DECREASED BY:USE OF PAIN MEDICATIONS TREATMENT/MEDICATIONS USED TO MANAGE PAIN:OPIOIDS LEVEL OF RELIEF FROM PAIN TREATMENTS IN THE PAST:50% PAIN HAS INTERFERED WITH THE FOLLOWING:SLEEP NURSING NOTE: -. PAIN CENTER INTAKE QUESTIONS: DO YOU HAVE A HISTORY OF MRSA? :NO DO YOU TAKE A BLOOD THINNERS? :NO DO YOU HAVE ANY BLEEDING DISORDERS? :NO ANY NEW NUMBNESS OR WEAKNESS IN YOUR LEGS OR ARMS? :NO ANY PACEMAKER,DEFIBRILLATOR, OR DORSAL COLUMN STIMULATOR? :NO DO YOU HAVE ANY RASHES OR OPEN SORES? :NO ARE YOU ALLERGIC TO IV DYE? :NO ARE YOU DIABETIC? :NO ANY NEW PROBLEMS WITH YOUR MEDICATIONS? :NO HAVE YOU RECEIVED A VACCINE IN THE PAST 30 DAYS? :NO DO YOU PLAN TO RECEIVE A VACCINE IN THE NEXT 21 DAYS? :NO DO YOU TAKE ANY IMMUNOSUPPRESSIVE MEDICATIONS? :NO ANY HISTORY OF SEIZURES? :NO ANY HISTORY OF CARDIAC ISSUES OR EVENTS? :NO DO YOU HAVE SLEEP APNEA? :NO ANY RECENT HEAD INJURY? :NO DO YOU HAVE ANY NEW INFECTIONS? :NO IS THERE A CHANCE YOU COULD BE ? :NO ARE YOU BREAST FEEDING? :NO WHEN DID YOU LAST EAT? : 04/10/2020 1900 WHEN DID YOU LAST DRINK? : 1115 WHAT DID YOU LAST DRINK? : WATER NAME OF PERSON DRIVING YOU HOME? : - VERNA DO YOU HAVE ANY OTHER QUESTIONS OR CONCERNS? : - CURRENT MEDICATIONS TAKING ACETAMINOPHEN 500 MG CAPSULE 1 CAPSULE NEEDED ORALLY EVERY 6 HRS, NOTES: MONTH AGO TAKING ASPIRIN 81 MG TABLET CHEWABLE DIRECTED ORALLY , NOTES: 04/10/2020 1200 TAKING CARBOXYMETHYLCELLULOSE SOD PF 0.5 % SOLUTION DIRECTED OPHTHALMIC , NOTES: 04/10/2020 1900 TAKING CETIRIZINE HCL 10 MG TABLET 1 TABLET ORALLY ONCE A DAY, NOTES: 04/10/2020 1200 TAKING COLACE 100 MG CAPSULE 1 CAPSULE NEEDED ORALLY ONCE A DAY, NOTES: 04/10/2020 1730 TAKING IRON 325 (65 FE) MG TABLET 1 TABLET ORALLY ONCE A DAY, NOTES: 0700 TAKING FLONASE ALLERGY RELIEF 50 MCG/ACT SUSPENSION 1 SPRAY IN EACH NOSTRIL NASALLY ONCE A DAY, NOTES: NONE RECENT TAKING OMEPRAZOLE 40 MG CAPSULE DELAYED RELEASE 1 CAPSULE 30 MINUTES BEFORE MORNING MEAL ORALLY ONCE A DAY, NOTES: 04/10/2020 2300 TAKING OXYCODONE HCL 10 MG TABLET 1 TABLET NEEDED ORALLY EVERY 6 HRS, NOTES: 04/10/2020 2300 TAKING ROPINIROLE HCL 1 MG TABLET 1 TABLET 1 TO 3 HOURS BEFORE BEDTIME ORALLY ONCE A DAY, NOTES: 04/10/2020 173 TAKING ROPINIROLE HCL 2 MG TABLET 1 TABLET 1 TO 3 HOURS BEFORE BEDTIME ORALLY ONCE A DAY, NOTES: 04/10/2020 2330 TAKING VITAMIN C 250 MG TABLET CHEWABLE 1 TABLET ORALLY ONCE A DAY, NOTES: 0700 TAKING ROSUVASTATIN CALCIUM 40 MG TABLET 1 TABLET ORALLY ONCE A DAY, NOTES: 04/10/2020 2300 MEDICATION LIST REVIEWED AND RECONCILED WITH THE PATIENT PAST MEDICAL HISTORY GERD RESTLESS LEG SYNDROME HIGH CHOLESTEROL BILAT KNEE PAIN BILAT SHOULDER PAIN LUMBOSACRAL OR CERVICAL STRAIN LOW IRON ALLERGIES DULOXETINE HCL: UNSURE - ALLERGY GABAPENTIN: IMPOTENCE - SIDE EFFECTS GEMFIBROZIL: UNSURE - ALLERGY SURGICAL HISTORY RIGHT KNEE REPAIR X6 LEFT KNEE SURGERY X5 RIGHT RIB REMOVED CHOLECYSTECTOMY LEFT BREAST LUMPECTOMY FAMILY HISTORY FATHER: 59 YRS, CVA MOTHER: 35 YRS, INTERNAL BLEEDING 2 BROTHER(S) , 1 SISTER(S) - HEALTHY. 2 SON(S) - HEALTHY. SOCIAL HISTORY GENERAL: TOBACCO USE ARE YOU A:FORMER SMOKER HOW LONG HAS IT BEEN SINCE YOU LAST SMOKED?> 10 YEARS LATEX QUESTIONNAIRE LATEX ALLERGY : HAVE YOU EVER DEVELOPED ANY TYPE OF REACTION AFTER HANDLING LATEX PRODUCTS SUCH RUBBER GLOVES, CONDOMS, DIAPHRAGMS, BALLOONS, SOCKS, OR UNDERWEAR?NO LATEX ALLERGY : HAVE YOU EVER DEVELOPED ANY TYPE OF REACTION DURING OR AFTER DENTAL APPOINTMENT, VAGINAL/RECTAL EXAMINATION, SURGICAL PROCEDURE, OR ANY OTHER EXPOSURE?NO LATEX RISK : HAVE YOU EVER HAD ANY DIFFICULTY BREATHING OR HIVES AFTER EATING OR HANDLING ANY FRUITS, OR VEGETABLES; SUCH KIWI, BANANAS, STONE FRUITS, OR CHESTNUTSNO LATEX RISK : DO YOU HAVE A PREVIOUS PERSONAL HISTORY OF MORE THAN NINE SURGERIES, SPINA BIFIDA, OR REPEATED CATHERIZATIONS? YES - PLEASE INDICATE : > 9 SURGERIES LATEX RISK : ARE YOU FREQUENTLY EXPOSED TO LATEX PRODUCTS IN YOUR OCCUPATION?NO DATE ASKED : 03/20/2020 ALCOHOL SCREENING DID YOU HAVE A DRINK CONTAINING ALCOHOL IN THE PAST YEAR?NO POINTS0 INTERPRETATIONNEGATIVE RECREATIONAL DRUG USE DRUG USE?NO CAFFEINE CAFFEINE USE?YES HOW OFTEN AND HOW MUCH? 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 DIET: REGULAR. MARITAL STATUS: . OTHERS AT HOME: SPOUSE. PAIN CLINIC PFS, CLERGY, PUBLIC HEALTH REFERRALS HAS THE PATIENT BEEN EDUCATED REGARDING HIS/HER PLAN OF CARE?YES HAS THE PATIENT BEEN EDUCATED REGARDING PAIN, THE RISK FOR PAIN, THE IMPORTANCE OF EFFECTIVE PAIN MANAGEMENT, AND THE PAIN ASSESSMENT PROCESS?YES HOUSING: RENTS APARTMENT. ADVANCE DIRECTIVE ADVANCE DIRECTIVE DISCUSSED WITH PATIENT:YES PT DOES NOT HAVE ANY ADVANCED DIRECTIVES AND HE DECLINES INFORMATION ON HCP AT THIS TIME HOSPITALIZATION/MAJOR DIAGNOSTIC PROCEDURE SURGERIES VITAL SIGNS WT 220.4 LBS, HT 59 IN, BMI 44.51 INDEX, BP 139/75 MM HG, HR 80 /MIN, RR 18 /MIN, TEMP 98.5 F, OXYGEN SAT % 98%, SAFE IN ENV? (Y/N) Y, NA INITIALS AW [id number] ARASH WEINSTEIN. EXAMINATION GENERAL EXAMINATION: A HISTORY AND PHYSICAL EXAM ON THE PATIENT WAS DONE ON 03/20/2020 (DATE OF ORIGINAL ASSESSMENT) IN PREPARATION OF SURGERY/PROCEDURE. I HAVE NOW REASSESSED THIS PATIENT'S HEALTH STATUS AND PERFORMED AN UPDATED EXAM TODAY. ALL CHANGES IN THE PATIENT'S HISTORY, PHYSICAL EXAM, PRE-EXISTING CONDITONS, AND INDICATIONS/CONTRAINDICATIONS TO THE PLANNED PROCEDURE AND ANESTHESIA ARE DOCUMENTED AND EVALUATED BELOW. I ATTEST TO THE ADEQUACY AND APPROPRIATENESS OF MY ASSESSMENT, AND CONFIRM THE NECESSITY FOR THE PLANNED PROCEDURE. THE PATIENT IS ALERT, ORIENTED TIMES THREE AND COOPERATIVE. HEART SHOWS REGULAR RHYTHM, NO MURMURS AND NO GALLOPS. LUNGS ARE CLEAR TO AUSCULTATION. ASSESSMENTS PAIN IN RIGHT KNEE - M25.561 (PRIMARY), RISK: (NULL) OSTEOARTHRITIS OF RIGHT KNEE - M17.11 TREATMENT PAIN IN RIGHT KNEE [facility] FLUORO GUIDANCE (PAIN)[id number] MEDICATION: [facility]ERSED [facility] 04[facility]11[facility]2020 2:52:46 PM > LOT [id number]. EXPIRATION 09/2022 TATA RANKIN RN 04/11/2020 2:54:24 PM > VERIFIED HEIDI LEDEZMA 04/11/2020 03:27:59 PM - SECOND DOSE ORDERED, VERIF[facility] 04/11/2020 4:52:14 PM > ADMINISTERED 1525 ADMINISTERED 1528 MEDICATION: FENTANYL CITRATE 50MCG IV [facility] 04/11/2020 2:53:52 PM > LOT# [id number] EXP DATE 12/2021 TAAT RANKIN RN 04/11/2020 2:55:17 PM > VERIFIED HEIDI LEDEZMA 04/11/2020 03:28:29 PM - SECOND DOSE ORDERED, VERIFIED WITH HEIDI CARRINGTON 04/11/2020 03:34:03 PM - THIRD DOSE ORDERED, VERIFIED WITH HEIDI CARRINGTON 04/11/2020 03:45:43 PM - FOURTH DOSE ORDERED, [facility] 04/11/2020 4:55:55 PM > ADMINISTERED 1526 ADMINISTERED 1529 ADMINISTERED 1535 [facility] 04/16/2020 9:58:46 AM > LATE ENTRY FENTANYL 50 MCG ADMINISTERED 04/11/20 AT 1545 PER MD ORDER OXYGEN AT 2 LITERS PER NASAL [facility] 04/11/2020 4:58:29 PM > 02 2L N/C APPLIED AT 1505 IV LACTATED RINGER'S AT KVOSYLKAL DUNN 04/11/2020 2:43:41 PM > IV INSERTED IN LEFT ARM, 22 GAUGE, ON FIRST ATTEMPT. SITE CLEAR, FLUIDS RUNNING WITHOUT DIFFICULTY. [facility] 04/11/2020 4:57:48 PM > TOTAL IV FLUID LACTATED RINGERS INFUSED 450CC. OTHERS NOTES: 04/10/20 UNRULY [place], PRIVATE INQUIRY AGENT. PROCEDURES PAIN NURSING RECORD PRE-PROCEDURE IV SITE LEFT ARM, IV STARTED # 22, IV STARTED BY: Jayy ANTOINE RN, IV ATTEMPTS 1, PRE-PROCEDURE ORAL MEDICATIONS NONE PROCEDURE IN ROOM 1503, PHYSICIAN IN ROOM 1524, START 1535, FINISH 1640, PHYSICIAN OUT OF ROOM 1643, OUT OF ROOM 1650, STEROID DEXAMETHASONE, O2 NC 2 LPM, ECG NORMAL SINUS, PATIENT SHIELDED YES, SAFETY STRAP YES, PREP CHLOROPREP D JS RANKIN, IV INFUSED LACTATED RINGERS, DRESSING TEGADERM DR VAZQUEZ LOC: ARIEL, GABE 04/11/2020 1505 1. ALERT, ORIENTED, ARIEL, GABE 04/11/2020 1510 1. ALERT, ORIENTED, ARIEL, GABE 04/11/2020 1515 1. ALERT, ORIENTED, ARIEL, GABE 04/11/2020 1520 1. ALERT, ORIENTED, ARIEL, GABE 04/11/2020 1525 1. ALERT, ORIENTED, ARIEL, GABE 04/11/2020 1530 1. ALERT, ORIENTED, ARIEL, GABE 04/11/2020 1535 1. ALERT, ORIENTED, ARIEL, GABE 04/11/2020 1540 1. ALERT, ORIENTED, ARIEL, GABE 04/11/2020 1545 1. ALERT, ORIENTED, ARIEL, GABE 04/11/2020 1550 1. ALERT, ORIENTED, ARIEL, GABE 04/11/2020 1555 1. ALERT, ORIENTED, ARIEL, GABE 04/11/2020 1600 1. ALERT, ORIENTED, ARIEL, GABE 04/11/2020 1605 1. ALERT, ORIENTED, ARIEL, GABE 04/11/2020 1610 1. ALERT, ORIENTED, ARIEL, GABE 04/11/2020 ,1615 1. ALERT, ORIENTED ARIEL, GABE 04/11/2020 ,1620 1. ALERT, ORIENTED ARIEL, GABE 04/11/2020 ,1625 1. ALERT, ORIENTED ARIEL, GABE 04/11/2020 1630, 1. ALERT, ORIENTED ARIEL, GABE 04/11/2020 1635, 1. ALERT, ORIENTED ARIEL, GABE 04/11/2020 1640, 1. ALERT, ORIENTED ARIEL, GABE 04/11/2020 1645, 1. ALERT, ORIENTED ARIEL, GABE 04/11/2020 1654, 1. ALERT, ORIENTED RESP: ARIEL, GABE 04/11/2020 1505 1. REGULAR, NO DYSPNEA, ARIEL, GABE 04/11/2020 1510 1. REGULAR, NO DYSPNEA, ARIEL, GABE 04/11/2020 1515 1. REGULAR, NO DYSPNEA, ARIEL, GABE 04/11/2020 1520 1. REGULAR, NO DYSPNEA, ARIEL, GABE 04/11/2020 1525 1. REGULAR, NO DYSPNEA, ARIEL, GABE 04/11/2020 1530 1. REGULAR, NO DYSPNEA, ARIEL, GABE 04/11/2020 1535 1. REGULAR, NO DYSPNEA, ARIEL, GABE 04/11/2020 1540 1. REGULAR, NO DYSPNEA, ARIEL, GABE 04/11/2020 1545 1. REGULAR, NO DYSPNEA, ARIEL, GABE 04/11/2020 1550 1. REGULAR, NO DYSPNEA, ARIEL, GABE 04/11/2020 1555 1. REGULAR, NO DYSPNEA, ARIEL, GABE 04/11/2020 1600 1. REGULAR, NO DYSPNEA, ARIEL, GABE 04/11/2020 1605, 1. REGULAR, NO DYSPNEA ARIEL, GABE 04/11/2020 1610, 1. REGULAR, NO DYSPNEA ARIEL, GABE 04/11/2020 1615, 1. REGULAR, NO DYSPNEA ARIEL, GABE 04/11/2020 1620, 1. REGULAR, NO DYSPNEA ARIEL, GABE 04/11/2020 1625, 1. REGULAR, NO DYSPNEA ARIEL, GABE 04/11/2020 1630, 1. REGULAR, NO DYSPNEA ARIEL, GABE 04/11/2020 1635, 1. REGULAR, NO DYSPNEA ARIEL, GABE 04/11/2020 1640, 1. REGULAR, NO DYSPNEA ARIEL, GABE 04/11/2020 1645, 1. REGULAR, NO DYSPNEA ARIEL, GABE 04/11/2020 1654, 1. REGULAR, NO DYSPNEA COLOR: ARIEL, GABE 04/11/2020 1505 1. PINK, ARIEL, GABE 04/11/2020 1510 1. PINK, ARIEL, GABE 04/11/2020 1515 1. PINK, ARIEL, GABE 04/11/2020 1520 1. PINK, ARIEL, GABE 04/11/2020 1525 1. PINK, ARIEL, GABE 04/11/2020 1530 1. PINK, ARIEL, GABE 04/11/2020 1535 1. PINK, ARIEL, GABE 04/11/2020 1540 1. PINK, ARIEL, GABE 04/11/2020 1545 1. PINK, ARIEL, GABE 04/11/2020 1550 1. PINK, ARIEL, GABE 04/11/2020 1555 1. PINK, ARIEL, GABE 04/11/2020 1600 1. PINK, ARIEL, GABE 04/11/2020 1605, 1. PINK ARIEL, GABE 04/11/2020 1610, 1. PINK ARIEL, GABE 04/11/2020 1615, 1. PINK ARIEL, GABE 04/11/2020 1620, 1. PINK ARIEL, GABE 04/11/2020 1625, 1. PINK ARIEL, GABE 04/11/2020 1630 , 1. PINK ARIEL, GABE 04/11/2020 1635, 1. PINK ARIEL, GABE 04/11/2020 1640, 1. PINK ARIEL, GABE 04/11/2020 1645, 1. PINK ARIEL, GABE 04/11/2020 1654, 1. PINK SKIN: ARIEL, AGBE 04/11/2020 1505 1. WARM, DRY, ARIEL, GABE 04/11/2020 1510 1. WARM, DRY, ARIEL, GABE 04/11/2020 1515 1. WARM, DRY, ARIEL, GABE 04/11/2020 1520 1. WARM, DRY, ARIEL, GABE 04/11/2020 1525 1. WARM, DRY, ARIEL, GABE 04/11/2020 1530 1. WARM, DRY, ARIEL, GABE 04/11/2020 1535 1. WARM, DRY, ARIEL, GABE 04/11/2020 1540 1. WARM, DRY, ARIEL, GABE 04/11/2020 1545 1. WARM, DRY, ARIEL, GABE 04/11/2020 1550 1. WARM, DRY, ARIEL, GABE 04/11/2020 1555 1. WARM, DRY, ARIEL, GABE 04/11/2020 1600 1. WARM, DRY, ARIEL, GABE 04/11/2020 1605, 1. WARM, DRY ARIEL, GABE 04/11/2020 1610, 1. WARM, DRY ARIEL, GABE 04/11/2020 1615, 1. WARM, DRY ARIEL, GABE 04/11/2020 1620, 1. WARM, DRY ARIEL, GABE 04/11/2020 1625, 1. WARM, DRY ARIEL, GABE 04/11/2020 1630, 1. WARM, DRY ARIEL, GABE 04/11/2020 1635, 1. WARM, DRY ARIEL, GABE 04/11/2020 1640, 1. WARM, DRY ARIEL, GABE 04/11/2020 1645, 1. WARM, DRY ARIEL, GABE 04/11/2020 1654, 1. WARM, DRY POSITION: ARIEL, GABE 04/11/2020 1505 2. SUPINE, ARIEL, GABE 04/11/2020 1510 2. SUPINE, ARIEL, GABE 04/11/2020 1515 2. SUPINE, ARIEL, GABE 04/11/2020 1520 2. SUPINE, ARIEL, GABE 04/11/2020 1525 2. SUPINE, ARIEL, GABE 04/11/2020 1530 2. SUPINE, ARIEL, GABE 04/11/2020 1535 2. SUPINE, ARIEL, GABE 04/11/2020 1540 2. SUPINE, ARIEL, GABE 04/11/2020 1545 2. SUPINE, ARIEL, GABE 04/11/2020 1550 2. SUPINE, ARIEL, GABE 04/11/2020 1555 2. SUPINE, ARIEL, GABE 04/11/2020 1600 2. SUPINE, ARIEL, GABE 04/11/2020 1605, 2. SUPINE ARIEL, GABE 04/11/2020 1610, 2. SUPINE ARIEL, GABE 04/11/2020 1615, 2. SUPINE ARIEL, GABE 04/11/2020 1620, 2. SUPINE ARIEL, GABE 04/11/2020 1625, 2. SUPINE ARIEL, GABE 04/11/2020 1630, 2. SUPINE ARIEL, GABE 04/11/2020 1635, 2. SUPINE ARIEL, GABE 04/11/2020 1640, 2. SUPINE ARIEL, GABE 04/11/2020 1645, 2. SUPINE ARIEL, GABE 04/11/2020 1654, 2. SUPINE VITALS: ARIEL, GABE 04/11/2020 1505 121/74-81-48-100% 2L ARIEL, GABE 04/11/2020 1510 123/59-78-92-100% 2L ARIEL, GABE 04/11/2020 1515 121/95-35-35-100%2L ARIEL, GABE 04/11/2020 1520 118/76-72-18-99% 2L ARIEL, GABE 04/11/2020 1525 121/16-46-12-100% 2L ARIEL, GABE 04/11/2020 1530 116/66-50-28-100% 2L ARIEL, GABE 04/11/2020 1535 124/53-87-26-100% 2L ARIEL, GABE 04/11/2020 1540 123/72-74-18-99% 2L ARIEL, GABE 04/11/2020 1545 126/71/73-18-100% 2L ARIEL, GABE 04/11/2020 1550 121/72-70-18-99% 2L ARIEL, GABE 04/11/2020 1555 116/78-71-18-99% 2 L ARIEL, GABE 04/11/2020 1600 120/76-71-18-99% 2L ARIEL, GABE 04/11/2020 1605 119/76-74-18-99% 2L ARIEL, GABE 04/11/2020 1610 118/98-24-01-100% 2L ARIEL, GABE 04/11/2020 1615 120/78-73-18-99% 2L ARIEL, GABE 04/11/2020 1620 124/04-84-95-100% 2L ARIEL, GABE 04/11/2020 1625 129/67-06-19-100% 2L ARIEL, GABE 04/11/2020 1630 129/77-33-62-100% 2L ARIEL, GABE 04/11/2020 1635 121/35-25-36-100% 2L GABE GEORGE 04/11/2020 1640 137/04-58-90-100% 2L GABE GEORGE 04/11/2020 1654 125/81-75-18-98% RA NOTES 1650- GROUNDING PAD REMOVED FROM RIGHT LATERAL THIGH BY THIS ADVANCED PRACTICE PROFESSIONAL, SITE ASYMPTOMATIC 04/11/2020 Gee WILCOX SCHEDULING MANAGER: POST PAIN 2 RIGHT KNEE, DRESSING SITE DRY AND INTACT RIGHT KNEE, IV DISCONTINUED, SITE CLEAR, CATHETER INTACT, GAIT STEADY DISCHARGED VIA WHEELCHAIR DUE TO CONSCIOUS SEDATION, TEACHING COMPLETED, PATIENT ACKNOWLEDGES UNDERSTANDING YES VERBALIZES UNDERSTANDING OF DISCHARGE INSTRUCTIONS REVIEWED., PATIENT DISCHARGED AT 1710 PN RADIOFREQUENCY DATE OF PROCEDURE 04/11/2020 . THERMO LESION RADIOFREQUENCY > 80 DEGREES : [employer] SYSTEM SET AT 60* WITH TISSUE TARGET TEMP > 80* OR MORE. STRAIGHT NEEDLE . SIDE: : RIGHT . LEVELS: : KNEE. NEEDLE/CATHETER/GAUGE: : 17 . CANULA LENGTH: : 75 MM . ACTIVE TIP: : 5.5 MM . GROUNDING PAD PLACED ON AFFECTED SIDE (MUSCULAR AREA): : RIGHT LATERAL THIGH. 1 ST LEVEL: : SUPERIOR MEDIAL GENICULAR NERVE,INITAL POSTIVE SENSORY RESPONE (50 HZ) 0.3,MOTOR RESPONSE (2 HZ-UP TO 3 VOLTS) 3.0 ,PRE-LOCAL IMPEDENCE READING OHMS 580 ,POST-LOCAL IMPEDENCE READING OHMS 136 ,DURING RF IMPEDENCE READING OHMS 130 , 2 ND LEVEL: : SUPERIOR LATERAL GENICULAR NERVE,INITIAL POSITIVE SENSORY RESPONSE (50 HZ) 0.4,MOTOR RESPONSE (2 HZ- UP TO 3 VOLTS) 3.0 ,PRE-LOCAL IMPEDENCE READING OHMS 704 ,POST-LOCAL IMEPEDENCE READING OHMS 291 ,DURING RF IMPEDENCE READING OHMS 278 , 3 RD LEVEL: : TERMINAL BRANCH OF THE VASTUS INTERMEDIUS NERVE (SUPRAPATELLAR),INITIAL POSITIVE SENSORY RESPONSE (50 HZ) 1.0,MOTOR RESPONSE (2HZ- UP TO 3 VOLTS) 3.0 ,PRE- LOCAL IMPEDENCE READING OHMS 226 ,POST-LOCAL IMPEDENCE READING OHMS 165 ,DURING RF IMPEDENCE READING OHMS 129 , 4 TH LEVEL: : INFERIOR MEDIAL GENICULAR NERVE ,INTIAL POSITIVE SENSORY RESPONSE (50 HZ) 0.6,MOTOR RESPONSE (2HZ- UP TO 3 VOLTS) 3.0 ,PRE-LOCAL IMPEDENCE READING OHMS 289 ,POST-LOCAL IMPEDENCE READING OHMS 204 ,DURING RF IMPEDENCE READING OHMS 174 , PRE PROCEDURE DIAGNOSIS: RIGHT KNEE OSTEOARTHRITIS. POST PROCEDURE DIAGNOSIS: RIGHT KNEE OSTEOARTHRITIS. PROCEDURE: RIGHT KNEE COOL RADIOFREQUENCY OF THE SUPERIOR MEDIAL GENICULAR NERVE, SUPERIOR LATERAL GENICULAR NERVE, INFERIOR MEDIAL GENICULAR NERVE AND THE TERMINAL BRANCH OF THE VASTUS INTERMEDIUS NERVE (SUPRAPATELLAR NERVE). SURGEON DR. RISHI VAZQUEZ. MOTORCYCLE RIDING INSTRUCTOR NONE. ANESTHESIA LOCAL. PRE PROCEDURE NOTE THE PATIENT HAS A HISTORY OF RIGHT KNEE PAIN. I EVALUATED THE PATIENT AND REVIEWED THE CHART. I DISCUSSED THE RISK, BENEFITS AND ALTERNATIVES OF THE PROCEDURE. THE PATIENT UNDERSTANDS AND AGREES AND WOULD LIKE TO MOVE FORWARD WITH THE PROCEDURE. AGREED WITH THE PATIENT, WE ARE DOING THIS PROCEDURE TO DETERMINE IF THE PATIENT IS A CANDIDATE FOR A RADIOFREQUENCY ABLATION. THE PATIENT DENIES UNEXPLAINABLE WEIGHT LOSS, FEVER, CHILLS, OR CHANGES IN URINARY OR BOWEL CONTROL. THE PATIENT IS COVID-19 NEGATIVE DESCRIPTION OF PROCEDURE AFTER CONSENT WAS TAKEN, THE PATIENT WAS BROUGHT TO THE PROCEDURE ROOM AND PLACED IN THE SUPINE POSITION WITH THE RIGHT KNEE EXTENDED. THE KNEE WAS CLEANED WITH CHLOROPREP SOLUTION AND DRAPED ASEPTICALLY. THE PROCEDURE WAS DONE UNDER STERILE CONDITIONS. A TIMEOUT WAS PERFORMED WHERE LATERALITY AND THE SITE OF THE PROCEDURE WERE CHECKED AND CONFIRMED WITH EVERYONE IN THE ROOM. UNDER FLUOROSCOPIC GUIDANCE, THE TARGET POINTS WERE SELECTED AT THE INTERSECTION OF THE SUPERIOR LATERAL AND MEDIAL EPIPHYSIS AND DIAPHYSIS, THE INFERIOR MEDIAL EPIPHYSIS AND DIAPHYSIS AND 3 CM ABOVE THE SUPERIOR BORDER OF THE PATELLA. I CONFIRMED AGAIN WITH EVERYONE IN THE ROOM THE LATERALITY OF THE TARGET. LIDOCAINE 1%, 3 ML, WAS INJECTED INTO THE SKIN AT EACH INSERTION POINT. RADIOFREQUENCY CANNULAS, 17-GAUGE, 75 MM LONG WITH 5.5MM ACTIVE TIP, WERE ADVANCED UNDER FLUOROSCOPIC GUIDANCE AND FOLLOWING PATIENT FEEDBACK UNTIL THE TARGET AREA WAS REACHED. POSITION OF THE CANNULA WAS VERIFIED WITH AP AND LATERAL VIEWS. WE MEASURED THE CORRESPONDING IMPEDANCES AND MOTOR RESPONSES INDICATED IN THE RADIOFREQUENCY WORK SHEET. POSITION OF THE CANNULA WAS VERIFIED AGAIN WITH AP AND LATERAL VIEWS. RADIOFREQUENCY WAS DONE AT EACH NERVE USING THE [employer] software SYSTEM-- COOLED RF-- WITH A SETTING AT THE MACHINE OF 60 DEGREES WITH A TARGET TISSUE TEMPERATURE OF 80 TO 90 DEGREES FOR A MINIMUM OF 150 SECONDS. AFTER RADIOFREQUENCY WAS DONE, THE PATIENT RECEIVED DEXAMETHASOME 2 MG AT EACH SITE. THERE WAS NO EVIDENCE OF PARESTHESIA OR BLOOD. THERE WERE NO COMPLICATIONS DURING THE PROCEDURE. THE PATIENT WAS SENT TO THE RECOVERY ROOM FOR OBSERVATION. ESTIMATED BLOOD LOSS WAS LESS THAN 5 ML. FLUOROSCOPY TIME WAS 1 MINUTES 41 SECONDS. THE PATIENT RECEIVED VERSED 2 MG AND FENTANYL 200 MCG IV IN DIVIDED DOSES. FACE TO FACE START TIME WAS 1525. FACE TO FACE END TIME WAS 1642. TOTAL FACE TO FACE TIME WAS 1 HOUR 17 MINUTES.POST PROCEDURE NOTE THE PATIENT WILL BE SEEN IN A FOLLOW UP IN THE NEXT FEW WEEKS. INSTRUCTIONS WERE GIVEN, QUESTIONS WERE ANSWERED, AND THE PATIENT EXPRESSED UNDERSTANDING AND AGREES WITH THE PLAN. I, HEIDI LEDEZMA, DOCUMENTED THE ABOVE INFORMATION ACTING A SCRIBE FOR DR. VAZQUEZ. I HAVE REVIEWED THE ABOVE DOCUMENT, WRITTEN BY HEIDI LEDEZMA, MEDICAL TRANSCRIPTION SUPERVISOR, AND I VERIFY THAT IT IS ACCURATE. PROCEDURE CODES 41779 DSTRJ NULYT AGT GNCLR NRV, [place]: [place] [id number] MOD SED SAME PHYS/QHP 5/>YRS 29259 MOD SED SAME PHYS/QHP EA, UNITS: 3.00 DISPOSITION & COMMUNICATION FOLLOW UP FOLLOW UP WITH DR. Garcia IN 2-3 WEEKS (REASON: POST RIGHT KNEE COOL RF) ELECTRONICALLY SIGNED BY RISHI VAZQUEZ MD, MD ON 04/22/2020 AT 12:26 PM EST DISCLAIMER : THIS IS A VISIT SUMMARY EXTRACTED FROM THE [employer] CHART. IT IS NOT A COPY OF THE [employer] PROGRESS NOTE. MTDD
== END ==
LOC: M PAIN 13:30
PROVIDERS: ATTEND Anesthesiology
DX: M25.561 Pain in right knee (principal); M17.11 Unilateral primary osteoarthritis, right knee; K21.9 Gastro-esophageal reflux disease without esophagitis; E78.00 Pure hypercholesterolemia, unspecified; G25.81 Restless legs syndrome; Z87.891 Personal history of nicotine dependence; Z79.82 Long term (current) use of aspirin; Z79.899 Other long term (current) drug therapy; Z79.891 Long term (current) use of opiate analgesic; Z88.8 Allergy status to other drugs, medicaments and biological substances
CPT/HCPCS: 64624; 99152; 99153; J1100; J2250; J3010

== ENCOUNTER → 2020-05-03 | Outpatient (CLI) | payer OTHER ==
[~2020-05-03] MED LIST changes: -BUPIVACAINE HCL 0.25% 30ML VIAL As Ordered ONE; -LIDOCAINE 1% SDV 30ML VIAL As Ordered ONE; -MIDAZOLAM INJ 2MG/2ML VIAL (J2250 PER 1MG) As Ordered ONE; -dexameTHASONE 10MG/1ML VIAL PRES.FREE (J1100 PER 1MG) As Ordered ONE; -fentaNYL 100 MCG/2 ML INJECTION (J3010) As Ordered ONE
--- NOTE | 2020-05-21 01:52 | ECWPNPC ---
PATIENT NAME: EL LUCAS : 1965 GENDER: MALE VISIT DATE: 05/03/2020 DISCHARGE DATE: 05/03/20 1530 VISIT LOCKED DATE TIME: PHYSICIAN: RISHI VAZQUEZ MD RESOURCE: RISHI VAZQUEZ MD REASON FOR APPOINTMENT 1. POST RIGHT KNEE RADIOFREQUENCY HISTORY OF PRESENT ILLNESS GENERAL: 55-YEAR-OLD MALE PATIENT WITH A HISTORY OF CHRONIC KNEE PAIN. HE IS STATUS POST A RADIOFREQUENCY OF THE RIGHT KNEE. BEFORE THE RADIOFREQUENCY, HIS PAIN WAS 10/10 AND IT WENT DOWN TO A 2/10 AFTER THE PROCEDURE. HE HAS A PAINFUL SENSATION DISTAL TO THE KNEE BUT REPORTS PAIN RELIEF. THE PATIENT STILL HAS PAIN IN THE LEFT KNEE. HE DESCRIBES THE PAIN SEVERE AND ACHING WITH A PAIN SCORE RANGING FROM 8-10/10. HE IS INTERESTED IN DOING RADIOFREQUENCY OVER THE LEFT KNEE. PATIENT DENIES UNEXPLAINABLE WEIGHT LOSS, FEVER, CHILLS, NEW CHANGES ON URINARY OR BOWEL CONTROL. FALL RISK SCREENING: SCREENING :NO FALLS REPORTED IN THE LAST YEAR PAIN SCREENING: PATIENT HAS A COMPLAINT OF ACUTE OR CHRONIC PAIN :YES LOCATION OF PAIN:KNEES RIGHT KNEE INTENSITY OF PAIN (SCALE OF 1 TO 10):2 LEFT KNEE: 8/10 PAIN WHAT DOES YOUR PAIN FEEL LIKE:OTHER RIGHT KNEE: DULL STINGING PAIN LEFT KNEE: THROBBING, SHARP, ACHING DURATION:CONTINOUS PAIN IS INCREASED BY:PROLONGED STANDING, OTHERS KNEELING PAIN IS DECREASED BY:USE OF PAIN MEDICATIONS, OTHERS PAIN CREAM NURSING NOTE: -. PAIN CENTER INTAKE QUESTIONS: DO YOU HAVE A HISTORY OF MRSA? :NO DO YOU TAKE A BLOOD THINNERS? :NO DO YOU HAVE ANY BLEEDING DISORDERS? :NO ANY NEW NUMBNESS OR WEAKNESS IN YOUR LEGS OR ARMS? :NO ANY PACEMAKER,DEFIBRILLATOR, OR DORSAL COLUMN STIMULATOR? :NO DO YOU HAVE ANY RASHES OR OPEN SORES? :NO ARE YOU ALLERGIC TO IV DYE? :NO ARE YOU DIABETIC? :NO ANY NEW PROBLEMS WITH YOUR MEDICATIONS? :NO HAVE YOU RECEIVED A VACCINE IN THE PAST 30 DAYS? :NO DO YOU PLAN TO RECEIVE A VACCINE IN THE NEXT 21 DAYS? :NO DO YOU NEED ANY PRESCRIPTION? :NO DO YOU TAKE ANY IMMUNOSUPPRESSIVE MEDICATIONS? :NO IS THERE A CHANCE YOU COULD BE ? :NO ARE YOU BREAST FEEDING? :NO CURRENT MEDICATIONS TAKING ACETAMINOPHEN 500 MG CAPSULE 1 CAPSULE NEEDED ORALLY EVERY 6 HRS TAKING ASPIRIN 81 MG TABLET CHEWABLE DIRECTED ORALLY TAKING CARBOXYMETHYLCELLULOSE SOD PF 0.5 % SOLUTION DIRECTED OPHTHALMIC TAKING CETIRIZINE HCL 10 MG TABLET 1 TABLET ORALLY ONCE A DAY TAKING COLACE 100 MG CAPSULE 1 CAPSULE NEEDED ORALLY ONCE A DAY TAKING IRON 325 (65 FE) MG TABLET 1 TABLET ORALLY ONCE A DAY TAKING FLONASE ALLERGY RELIEF 50 MCG/ACT SUSPENSION 1 SPRAY IN EACH NOSTRIL NASALLY ONCE A DAY TAKING OMEPRAZOLE 40 MG CAPSULE DELAYED RELEASE 1 CAPSULE 30 MINUTES BEFORE MORNING MEAL ORALLY ONCE A DAY TAKING OXYCODONE HCL 10 MG TABLET 1 TABLET NEEDED ORALLY EVERY 6 HRS TAKING ROPINIROLE HCL 1 MG TABLET 1 TABLET 1 TO 3 HOURS BEFORE BEDTIME ORALLY ONCE A DAY TAKING ROPINIROLE HCL 2 MG TABLET 1 TABLET 1 TO 3 HOURS BEFORE BEDTIME ORALLY ONCE A DAY TAKING VITAMIN C 250 MG TABLET CHEWABLE 1 TABLET ORALLY ONCE A DAY TAKING ROSUVASTATIN CALCIUM 40 MG TABLET 1 TABLET ORALLY ONCE A DAY MEDICATION LIST REVIEWED AND RECONCILED WITH THE PATIENT PAST MEDICAL HISTORY GERD RESTLESS LEG SYNDROME HIGH CHOLESTEROL BILAT KNEE PAIN BILAT SHOULDER PAIN LUMBOSACRAL OR CERVICAL STRAIN LOW IRON ALLERGIES DULOXETINE HCL: UNSURE - ALLERGY GABAPENTIN: IMPOTENCE - SIDE EFFECTS GEMFIBROZIL: UNSURE - ALLERGY SURGICAL HISTORY RIGHT KNEE REPAIR X6 LEFT KNEE SURGERY X5 RIGHT RIB REMOVED CHOLECYSTECTOMY LEFT BREAST LUMPECTOMY FAMILY HISTORY FATHER: 59 YRS, CVA MOTHER: 35 YRS, INTERNAL BLEEDING 2 BROTHER(S) , 1 SISTER(S) - HEALTHY. 2 SON(S) - HEALTHY. SOCIAL HISTORY GENERAL: TOBACCO USE ARE YOU A:FORMER SMOKER HOW LONG HAS IT BEEN SINCE YOU LAST SMOKED?> 10 YEARS LATEX QUESTIONNAIRE LATEX ALLERGY : HAVE YOU EVER DEVELOPED ANY TYPE OF REACTION AFTER HANDLING LATEX PRODUCTS SUCH RUBBER GLOVES, CONDOMS, DIAPHRAGMS, BALLOONS, SOCKS, OR UNDERWEAR?NO LATEX ALLERGY : HAVE YOU EVER DEVELOPED ANY TYPE OF REACTION DURING OR AFTER DENTAL APPOINTMENT, VAGINAL/RECTAL EXAMINATION, SURGICAL PROCEDURE, OR ANY OTHER EXPOSURE?NO LATEX RISK : HAVE YOU EVER HAD ANY DIFFICULTY BREATHING OR HIVES AFTER EATING OR HANDLING ANY FRUITS, OR VEGETABLES; SUCH KIWI, BANANAS, STONE FRUITS, OR CHESTNUTSNO LATEX RISK : DO YOU HAVE A PREVIOUS PERSONAL HISTORY OF MORE THAN NINE SURGERIES, SPINA BIFIDA, OR REPEATED CATHERIZATIONS? YES - PLEASE INDICATE : > 9 SURGERIES LATEX RISK : ARE YOU FREQUENTLY EXPOSED TO LATEX PRODUCTS IN YOUR OCCUPATION?NO DATE ASKED : 03/20/2020 ALCOHOL SCREENING DID YOU HAVE A DRINK CONTAINING ALCOHOL IN THE PAST YEAR?NO POINTS0 INTERPRETATIONNEGATIVE RECREATIONAL DRUG USE DRUG USE?NO CAFFEINE CAFFEINE USE?YES HOW OFTEN AND HOW MUCH? 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 DIET: REGULAR. MARITAL STATUS: . OTHERS AT HOME: SPOUSE. PAIN CLINIC PFS, CLERGY, PUBLIC HEALTH REFERRALS HAS THE PATIENT BEEN EDUCATED REGARDING HIS/HER PLAN OF CARE?YES HAS THE PATIENT BEEN EDUCATED REGARDING PAIN, THE RISK FOR PAIN, THE IMPORTANCE OF EFFECTIVE PAIN MANAGEMENT, AND THE PAIN ASSESSMENT PROCESS?YES HOUSING: RENTS APARTMENT. ADVANCE DIRECTIVE ADVANCE DIRECTIVE DISCUSSED WITH PATIENT:YES PT DOES NOT HAVE ANY ADVANCED DIRECTIVES AND HE DECLINES INFORMATION ON HCP AT THIS TIME HOSPITALIZATION/MAJOR DIAGNOSTIC PROCEDURE SURGERIES REVIEW OF SYSTEMS CONSTITUTIONAL: ANY RECENT FEVER NO . CHILLS NO . WEIGHT CHANGE OF UNKNOWN REASONS NO . GASTROENTEROLOGY: NEW UNEXPLAINABLE CHANGES IN BOWEL CONTROL NO . CONSTIPATION NO . GENITOURINARY: ANY NEW CHANGE IN BLADDER CONTROL? NO . NEUROLOGY: NEW ONSET DIZZINESS OR NEUROLOGICAL CHANGES NOT MENTIONED NO . NEW NUMBNESS OR PAIN PATTERNS NOT MENTIONED AND PERTINENT TO TODAY'S VISIT NO . CARDIOLOGY: NEW CHEST PRESSURE NO . NEW CHEST PAIN NO . RESPIRATORY: UNEXPLAINABLE COUGH NO . NEW SHORTNESS OF BREATH NO . VITAL SIGNS WT 218.4 LBS, HT 59 IN, BMI 44.11 INDEX, BP 125/72 MM HG, HR 89 /MIN, RR 18 /MIN, TEMP 96.1 F, OXYGEN SAT % 96%, SAFE IN ENV? (Y/N) Y, NA INITIALS AW 1417, REVIEWED BY: JSJ. ARASH RN. EXAMINATION GENERAL EXAMINATION: THE PATIENT IS ALERT, ORIENTED TIMES THREE AND COOPERATIVE. HEART SHOWS REGULAR RHYTHM, NO MURMURS AND NO GALLOPS. LUNGS ARE CLEAR TO AUSCULTATION. THE AREA LOOKS WELL WITHOUT EVIDENCE OF INFECTION. THERE IS TENDERNESS DISTAL TO THE KNEE. THERE IS TENDERNESS OVER THE LEFT KNEE. LEFT KNEE MRI SHOWS SOME CHONDROMYLACIA. 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 LUCAS. THE PATIENT HAS A MIXTURE OF A TOPICAL CREAM AT HOME AND I SUGGEST THAT HE SHOULD USE THAT FOR 1-2 WEEKS TO SEE IF THE PAIN GOES AWAY ON THE RIGHT KNEE. THE PATIENT HAS DONE 2 DIAGNOSTIC KNEE BLOCKS ON THE LEFT KNEE WITH MORE THAN 80% OF PAIN REDUCTION. THE PATIENT IS INTERESTED IN THE LEFT KNEE RADIOFREQUENCY, BOOK AFTER APPROVE. THE PATIENT REPORTS UNDERSTANDING AND AGREES WITH THE PLAN. I, HEIDI LEDEZMA, DOCUMENTED THE ABOVE INFORMATION ACTING A SCRIBE FOR DR. VAZQUEZ. I HAVE REVIEWED THE ABOVE DOCUMENT, WRITTEN BY HEIDI LEDEZMA, DEPARTMENT SUPERVISOR, AND I VERIFY THAT IT IS ACCURATE. PRE-PROCEDURE INSTRUCTIONS REVIEWED WITH PT. VERBALIZED UNDERSTANDING. 05/03/20 153Roopa ELIZABETH RN. PROCEDURE CODES [id number] OFFICE/OUTPATIENT VISIT EST FA211 ESTABILISHED PATIENT [facility] CHARGE DISPOSITION & COMMUNICATION FOLLOW UP REQUEST AUTH FOR LEFT KNEE RF NO IV SEDATION (REASON: REQUEST AUTH FOR LEFT KNEE RF NO IV SEDATION ) ELECTRONICALLY SIGNED BY RISHI VAZQUEZ MD, ON 05/20/2020 AT 05:58 PM EST DISCLAIMER : THIS IS A VISIT SUMMARY EXTRACTED FROM THE [employer] CHART. IT IS NOT A COPY OF THE [employer] PROGRESS NOTE. KIRILL
== END ==
LOC: M PAIN 14:00
PROVIDERS: ATTEND Anesthesiology
DX: M25.561 Pain in right knee (principal); Z98.890 Other specified postprocedural states; M94.262 Chondromalacia, left knee; K21.9 Gastro-esophageal reflux disease without esophagitis; G25.81 Restless legs syndrome; E78.00 Pure hypercholesterolemia, unspecified; M25.562 Pain in left knee; M25.511 Pain in right shoulder; M25.512 Pain in left shoulder; Z87.891 Personal history of nicotine dependence; Z79.82 Long term (current) use of aspirin; Z79.891 Long term (current) use of opiate analgesic; Z79.899 Other long term (current) drug therapy; Z88.8 Allergy status to other drugs, medicaments and biological substances

== ENCOUNTER → 2020-05-18 | Outpatient (CLI) | payer OTHER | LOC: M LABSMTC 13:27 | PROVIDERS: ATTEND Anesthesiology | DX: Z20.828 Contact with and (suspected) exposure to other viral communicable diseases (principal) ==

== ENCOUNTER → 2020-06-27 | Outpatient (CLI) | payer OTHER | LOC: M LABSMTC 13:57 | PROVIDERS: ATTEND Anesthesiology | DX: Z20.822 Contact with and (suspected) exposure to COVID-19 (principal) ==

== ENCOUNTER → 2020-07-02 | Outpatient (CLI) | payer OTHER ==
[~2020-07-02] MED LIST changes: +BUPIVACAINE HCL 0.25% 30ML VIAL As Ordered ONE; +ISOVUE-M 300 61% 15ML VIAL As Ordered ONE; +LIDOCAINE 1% SDV 30ML VIAL As Ordered ONE; +MONT10TA10 PO; -MONT5TAB2 PO; +dexameTHASONE 10MG/1ML VIAL PRES.FREE (J1100 PER 1MG) As Ordered ONE; +diazePAM 5MG TABLET As Ordered ONE; +oxyCODONE 5MG TAB As Ordered ONE
--- NOTE | 2020-07-05 05:27 | ECWPNPC ---
PATIENT NAME: EL LUCAS : 1965 GENDER: MALE VISIT DATE: 07/02/2020 DISCHARGE DATE: 07/02/20 0000 VISIT LOCKED DATE TIME: PHYSICIAN: RISHI VAZQUEZ MD RESOURCE: RISHI VAZQUEZ MD REASON FOR APPOINTMENT 1. LEFT KNEE COOL RADIOFREQUENCY HISTORY OF PRESENT ILLNESS GENERAL: -. FALL RISK SCREENING: SCREENING :NO FALLS REPORTED IN THE LAST YEAR PAIN SCREENING: PATIENT HAS A COMPLAINT OF ACUTE OR CHRONIC PAIN :YES LOCATION OF PAIN:KNEES LEFT KNEE INTENSITY OF PAIN (SCALE OF 1 TO 10):8 WHAT DOES YOUR PAIN FEEL LIKE:ACHING, THROBBING, OTHER "HURTS LIKE CRAZY" DURATION:CONTINOUS, AWAKENS FROM SLEEP PAIN IS INCREASED BY:PROLONGED STANDING, OTHERS KNEELING PAIN IS DECREASED BY:USE OF PAIN MEDICATIONS, OTHERS PAIN CREAM TREATMENT/MEDICATIONS USED TO MANAGE PAIN:OTC PAIN RELIEVERS, NSAIDS, TOPICAL CORTICOSTEROIDS, OPIOIDS, PHYSICAL THERAPY LEVEL OF RELIEF FROM PAIN TREATMENTS IN THE PAST:100% AT LEAST 95% EFFECTIVE PAIN HAS INTERFERED WITH THE FOLLOWING:WALKING ABILITY, EMPLOYMENT, HOUSEWORK PLAN/GOALS/TREATMENT/INTERVENTION/FOLLOW UP:SEE PLAN PAIN CENTER INTAKE QUESTIONS: DO YOU HAVE A HISTORY OF MRSA? :NO DO YOU TAKE A BLOOD THINNERS? :NO DO YOU HAVE ANY BLEEDING DISORDERS? :NO ANY NEW NUMBNESS OR WEAKNESS IN YOUR LEGS OR ARMS? :NO ANY PACEMAKER,DEFIBRILLATOR, OR DORSAL COLUMN STIMULATOR? :NO DO YOU HAVE ANY RASHES OR OPEN SORES? :NO ARE YOU ALLERGIC TO IV DYE? :NO ARE YOU DIABETIC? :NO ANY NEW PROBLEMS WITH YOUR MEDICATIONS? :NO HAVE YOU RECEIVED A VACCINE IN THE PAST 30 DAYS? :NO DO YOU PLAN TO RECEIVE A VACCINE IN THE NEXT 21 DAYS? :NO DO YOU TAKE ANY IMMUNOSUPPRESSIVE MEDICATIONS? :NO ANY HISTORY OF SEIZURES? :NO ANY HISTORY OF CARDIAC ISSUES OR EVENTS? :NO DO YOU HAVE SLEEP APNEA? :NO ANY RECENT HEAD INJURY? :NO DO YOU HAVE ANY NEW INFECTIONS? :NO IS THERE A CHANCE YOU COULD BE ? :NO ARE YOU BREAST FEEDING? :NO WHEN DID YOU LAST EAT? : 07/01/20 2300 WHEN DID YOU LAST DRINK? : 07/02/20 1100 WHAT DID YOU LAST DRINK? : LARS MIST NAME OF PERSON DRIVING YOU HOME? : VERNA DO YOU HAVE ANY OTHER QUESTIONS OR CONCERNS? : NO CURRENT MEDICATIONS TAKING ACETAMINOPHEN 500 MG CAPSULE 1 CAPSULE NEEDED ORALLY EVERY 6 HRS TAKING ASPIRIN 81 MG TABLET CHEWABLE DIRECTED ORALLY TAKING CARBOXYMETHYLCELLULOSE SOD PF 0.5 % SOLUTION DIRECTED OPHTHALMIC TAKING CETIRIZINE HCL 10 MG TABLET 1 TABLET ORALLY ONCE A DAY TAKING COLACE 100 MG CAPSULE 1 CAPSULE NEEDED ORALLY ONCE A DAY TAKING IRON 325 (65 FE) MG TABLET 1 TABLET ORALLY ONCE A DAY TAKING FLONASE ALLERGY RELIEF 50 MCG/ACT SUSPENSION 1 SPRAY IN EACH NOSTRIL NASALLY ONCE A DAY TAKING OMEPRAZOLE 40 MG CAPSULE DELAYED RELEASE 1 CAPSULE 30 MINUTES BEFORE MORNING MEAL ORALLY ONCE A DAY TAKING OXYCODONE HCL 10 MG TABLET 1 TABLET NEEDED ORALLY EVERY 6 HRS, NOTES: 07/01 2300 TAKING ROPINIROLE HCL 1 MG TABLET 1 TABLET 1 TO 3 HOURS BEFORE BEDTIME ORALLY ONCE A DAY, NOTES: ONE IN EVENING TAKING ROPINIROLE HCL 2 MG TABLET 1 TABLET 1 TO 3 HOURS BEFORE BEDTIME ORALLY ONCE A DAY, NOTES: ONE AT NIGHT TAKING VITAMIN C 250 MG TABLET CHEWABLE 1 TABLET ORALLY ONCE A DAY TAKING ROSUVASTATIN CALCIUM 40 MG TABLET 1 TABLET ORALLY ONCE A DAY MEDICATION LIST REVIEWED AND RECONCILED WITH THE PATIENT PAST MEDICAL HISTORY GERD RESTLESS LEG SYNDROME HIGH CHOLESTEROL BILAT KNEE PAIN BILAT SHOULDER PAIN LUMBOSACRAL OR CERVICAL STRAIN LOW IRON ALLERGIES DULOXETINE HCL: UNSURE - ALLERGY GABAPENTIN: IMPOTENCE - SIDE EFFECTS GEMFIBROZIL: UNSURE - ALLERGY SURGICAL HISTORY RIGHT KNEE REPAIR X6 LEFT KNEE SURGERY X5 RIGHT RIB REMOVED CHOLECYSTECTOMY LEFT BREAST LUMPECTOMY FAMILY HISTORY FATHER: 59 YRS, CVA MOTHER: 35 YRS, INTERNAL BLEEDING 2 BROTHER(S) , 1 SISTER(S) - HEALTHY. 2 SON(S) - HEALTHY. SOCIAL HISTORY GENERAL: TOBACCO USE ARE YOU A:FORMER SMOKER HOW LONG HAS IT BEEN SINCE YOU LAST SMOKED?> 10 YEARS LATEX QUESTIONNAIRE LATEX ALLERGY : HAVE YOU EVER DEVELOPED ANY TYPE OF REACTION AFTER HANDLING LATEX PRODUCTS SUCH RUBBER GLOVES, CONDOMS, DIAPHRAGMS, BALLOONS, SOCKS, OR UNDERWEAR?NO LATEX ALLERGY : HAVE YOU EVER DEVELOPED ANY TYPE OF REACTION DURING OR AFTER DENTAL APPOINTMENT, VAGINAL/RECTAL EXAMINATION, SURGICAL PROCEDURE, OR ANY OTHER EXPOSURE?NO LATEX RISK : HAVE YOU EVER HAD ANY DIFFICULTY BREATHING OR HIVES AFTER EATING OR HANDLING ANY FRUITS, OR VEGETABLES; SUCH KIWI, BANANAS, STONE FRUITS, OR CHESTNUTSNO LATEX RISK : DO YOU HAVE A PREVIOUS PERSONAL HISTORY OF MORE THAN NINE SURGERIES, SPINA BIFIDA, OR REPEATED CATHERIZATIONS? YES - PLEASE INDICATE : > 9 SURGERIES LATEX RISK : ARE YOU FREQUENTLY EXPOSED TO LATEX PRODUCTS IN YOUR OCCUPATION?NO DATE ASKED : 07/01/2020 ALCOHOL SCREENING DID YOU HAVE A DRINK CONTAINING ALCOHOL IN THE PAST YEAR?NO POINTS0 INTERPRETATIONNEGATIVE RECREATIONAL DRUG USE DRUG USE?NO CAFFEINE CAFFEINE USE?YES HOW OFTEN AND HOW MUCH? 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 DIET: REGULAR. MARITAL STATUS: . OTHERS AT HOME: SPOUSE. - HAS THE PATIENT BEEN EDUCATED REGARDING HIS/HER PLAN OF CARE?YES HAS THE PATIENT BEEN EDUCATED REGARDING PAIN, THE RISK FOR PAIN, THE IMPORTANCE OF EFFECTIVE PAIN MANAGEMENT, AND THE PAIN ASSESSMENT PROCESS?YES HOUSING: RENTS APARTMENT. ADVANCE DIRECTIVE ADVANCE DIRECTIVE DISCUSSED WITH PATIENT:YES PT DOES NOT HAVE ANY ADVANCED DIRECTIVES AND HE DECLINES INFORMATION ON HCP AT THIS TIME HOSPITALIZATION/MAJOR DIAGNOSTIC PROCEDURE SURGERIES VITAL SIGNS WT 216.4 LBS, HT 59 IN, BMI 43.70 INDEX, BP 136/63 MM HG, HR 95 /MIN, RR 18 /MIN, TEMP 96.6 F, OXYGEN SAT % 95%, SAFE IN ENV? (Y/N) YES, NA INITIALS AW 1307, REVIEWED BY: Lewis SINGH MANAGER TELEMARKETING. EXAMINATION GENERAL EXAMINATION: THE PATIENT IS ALERT, ORIENTED TIMES THREE AND COOPERATIVE. LUNGS ARE CLEAR TO AUSCULTATION. HEART SHOWS REGULAR RHYTHM, NO MURMURS AND NO GALLOPS. ASSESSMENTS PAIN IN LEFT KNEE - M25.562 (PRIMARY), RISK: (NULL) OSTEOARTHRITIS OF LEFT KNEE - M17.12 STATUS POST LEFT KNEE SURGERY - Z98.890 TREATMENT PAIN IN LEFT KNEE [facility] FLUORO GUIDANCE (PAIN)[id number] MEDICATION: VALIUM TAB 10MG ORALLY (DIAZEPAM)EDMUNDO SINGH 07/02/2020 2:11:17 PM > LOT# [id number] EXP: 08/21. RANJIT REAGAN 07/02/2020 2:15:31 PM > VERIFIED. EDMUNDO SINGH 07/02/2020 2:20:40 PM > ADMINISTERED. MEDICATION: OXYCODONE HCL TAB 10MG ORALLYEDMUNDO SINGH 07/02/2020 2:11:50 PM > LOT# [id number] EXP: 07/2021. RANJIT REAGAN 07/02/2020 2:15:59 PM > VERIFIED. EDMUNDO SINGH 07/02/2020 2:21:03 PM > ADMINISTERED. OTHERS NOTES: 07/01/20 1155 PAT COMPLETED. Lewis SINGHMANAGER TELEMARKETING. PROCEDURES PAIN NURSING RECORD PROCEDURE IN ROOM 1430, PHYSICIAN IN ROOM 1508, START 1516, FINISH 1727, PHYSICIAN OUT OF ROOM 1731, OUT OF ROOM 1741, ECG NORMAL SINUS, PATIENT SHIELDED YES, SAFETY STRAP NO DUE TO PATIENTS PROCEDURE AND POSITION., PREP CHLOROPREP SANTIAGO MANAGER TELEMARKETING, DRESSING TEGADERM DR. VAZQUEZ LOC: EDMUNDO SINGH 07/02/2020 2:30:44 PM > 1. ALERT, ORIENTED, LOC REMAINED AT BASELINE THROUGHOUT THE PROCEDURE RESP: EDMUNDO SINGH 07/02/2020 2:30:44 PM > 1. REGULAR, NO DYSPNEA COLOR: EDMUNDO SINGH 07/02/2020 2:30:44 PM > 1. PINK SKIN: EDMUNDO SINGH 07/02/2020 2:30:44 PM > 1. WARM, DRY POSITION: EDMUNDO SINGH 07/02/2020 2:30:44 PM > 2. SUPINE, 4. OTHER LEFT LEG ELEVATED AT A GRADUAL INCLINE FROM PELVIS TO FOOT FOR PROCEDURAL PURPOSES. VITALS: EDMUNDO SINGH 07/02/2020 2:35:01 PM > 123/67, 74 98% RA. EDMUNDO SINGH 07/02/2020 2:46:36 PM > 123/70, 81, 96% RA. EDMUNDO SINGH 07/02/2020 2:59:13 PM > 113/66, 80, 95% RA. EDMUNDO SINGH 07/02/2020 3:14:07 PM > 120/71, 79, 94% RA. EDMUNDO SINGH 07/02/2020 3:29:13 PM > 128/67, 76, 99% RA. EDMUNDO SINGH 07/02/2020 3:44:57 PM >115/63, 74, 96% RA. EDMUNDO SINGH 07/02/2020 3:59:18 PM > 115/67, 69, 94% RA. EDMUNDO SINGH 07/02/2020 4:14:03 PM > 120/68, 74, 96% RA. EDMUNDO SINGH 07/02/2020 4:29:09 PM > 113/65, 78, 95% RA. EDMUNDO SINGH 07/02/2020 4:44:18 PM > 115/69, 76, 96% RA. EDMUNDO SINGH 07/02/2020 4:59:33 PM > 113/66, 74, 97% RA. EDMUNDO SINGH 07/02/2020 5:14:33 PM > 113/68, 76, 97% RA. EDMUNDO SINGH 07/02/2020 5:15:11 PM > 113/66, 74, 97% RA. EDMUNDO SINGH 07/02/2020 5:14:19 PM > 114/67, 77, 99% RA. EDMUNDO SINGH 07/02/2020 5:30:41 PM > POST PROCEDURE 132/72, 80, 96% RA. NOTES PATIENT POSITIONED LEFT SIDE TOWARD PROVIDER. PROVIDER REQUESTED ISOVUE FOR PROCEDURE TO CONFIRM LANDMARKS. COMPLETION OF PROCEDURE APPOINTMENT: POST PAIN 2 PATIENT RATES PAIN 1-2/10 IN LEFT KNEE., DRESSING SITE DRY AND INTACT, IV N/A, GAIT STEADY CANE AT BASELINE, TEACHING COMPLETED, PATIENT ACKNOWLEDGES UNDERSTANDING YES PATIENT GIVEN COVID HANDOUT AND POST PROCEDURE INSTRUCTION, PATIENT VERBALIZES UNDERSTANDING., PATIENT DISCHARGED AT 1751 PATIENT ASSISTED BY STAFF TO ELEVATOR. PN RADIOFREQUENCY DATE OF PROCEDURE 07/02/2020 . THERMO LESION RADIOFREQUENCY > 80 DEGREES : [employer] SYSTEM SET AT 60* WITH TISSUE TARGET TEMP > 80* OR MORE. STRAIGHT NEEDLE . SIDE: : LEFT . LEVELS: : KNEE. NEEDLE/CATHETER/GAUGE: : 17 . CANULA LENGTH: : 75 MM . ACTIVE TIP: : 5.5 MM . GROUNDING PAD PLACED ON AFFECTED SIDE (MUSCULAR AREA): : LEFT LATERAL FLANK. 1 ST LEVEL: : SUPERIOR MEDIAL GENICULAR NERVE,INITAL POSTIVE SENSORY RESPONE (50 HZ) 0.2,MOTOR RESPONSE (2 HZ-UP TO 3 VOLTS) 3.0 ,PRE-LOCAL IMPEDENCE READING OHMS 507 ,POST-LOCAL IMPEDENCE READING OHMS 255 ,DURING RF IMPEDENCE READING OHMS 222 , 2 ND LEVEL: : SUPERIOR LATERAL GENICULAR NERVE,INITIAL POSITIVE SENSORY RESPONSE (50 HZ) 0.8,MOTOR RESPONSE (2 HZ- UP TO 3 VOLTS) 3.0 ,PRE-LOCAL IMPEDENCE READING OHMS 362 ,POST-LOCAL IMEPEDENCE READING OHMS 189 ,DURING RF IMPEDENCE READING OHMS 166 , 3 RD LEVEL: : TERMINAL BRANCH OF THE VASTUS INTERMEDIUS NERVE,INITIAL POSITIVE SENSORY RESPONSE (50 HZ) 0.7,MOTOR RESPONSE (2HZ- UP TO 3 VOLTS) 3.0 ,PRE- LOCAL IMPEDENCE READING OHMS 204 ,POST-LOCAL IMPEDENCE READING OHMS 202 ,DURING RF IMPEDENCE READING OHMS 181 , 4 TH LEVEL: : INFERIOR MEDIAL GENICULAR NERVE,INTIAL POSITIVE SENSORY RESPONSE (50 HZ) 0.6,MOTOR RESPONSE (2HZ- UP TO 3 VOLTS) 3.0 ,PRE-LOCAL IMPEDENCE READING OHMS 308 ,POST-LOCAL IMPEDENCE READING OHMS 272 ,DURING RF IMPEDENCE READING OHMS 245 , PRE PROCEDURE DIAGNOSIS LEFT KNEE OSTEOARTHRITIS POST PROCEDURE DIAGNOSIS LEFT KNEE OSTEOARTHRITIS PROCEDURE LEFT KNEE COOL RADIOFREQUENCY OF THE SUPERIOR MEDIAL GENICULAR NERVE, SUPERIOR LATERAL GENICULAR NERVE, INFERIOR MEDIAL GENICULAR NERVE AND THE TERMINAL BRANCH OF THE VASTUS INTERMEDIUS NERVE (SUPRAPATELLAR NERVE). SURGEON DR. RISHI VAZQUEZ COMPUTER APPLICATIONS ENGINEER NONE ANESTHESIA LOCAL PRE PROCEDURE NOTE THE PATIENT HAS A HISTORY OF LEFT KNEE PAIN. I EVALUATED THE PATIENT AND REVIEWED THE CHART. I DISCUSSED THE RISK, BENEFITS AND ALTERNATIVES OF THE PROCEDURE. THE PATIENT UNDERSTANDS AND AGREES AND WOULD LIKE TO MOVE FORWARD WITH THE PROCEDURE. THE PATIENT DENIES UNEXPLAINABLE WEIGHT LOSS, FEVER, CHILLS, OR CHANGES IN URINARY OR BOWEL CONTROL. THE PATIENT IS COVID-19 NEGATIVE DESCRIPTION OF PROCEDURE AFTER CONSENT WAS TAKEN, THE PATIENT WAS BROUGHT TO THE PROCEDURE ROOM AND PLACED IN THE SUPINE POSITION WITH THE LEFT KNEE EXTENDED. THE KNEE WAS CLEANED WITH CHLORAPREP SOLUTION AND DRAPED ASEPTICALLY. THE PROCEDURE WAS DONE UNDER STERILE CONDITIONS. A TIMEOUT WAS PERFORMED WHERE LATERALITY AND THE SITE OF THE PROCEDURE WERE CHECKED AND CONFIRMED WITH EVERYONE IN THE ROOM. UNDER FLUOROSCOPIC GUIDANCE, THE TARGET POINTS WERE SELECTED AT THE INTERSECTION OF THE SUPERIOR LATERAL AND MEDIAL EPIPHYSIS AND DIAPHYSIS, THE INFERIOR MEDIAL EPIPHYSIS AND DIAPHYSIS AND 3-4 CM ABOVE THE SUPERIOR BORDER OF THE PATELLA. I CONFIRMED AGAIN WITH EVERYONE IN THE ROOM THE LATERALITY AND SITE OF THE TARGET AT 1513. LIDOCAINE 1%, 3 ML, WAS INJECTED INTO THE SKIN AT EACH INSERTION POINT. RADIOFREQUENCY CANNULAS, 17-GAUGE, 75 MM LONG WITH 5.5 MM ACTIVE TIP, WERE ADVANCED UNDER FLUOROSCOPIC GUIDANCE AND FOLLOWING PATIENT FEEDBACK UNTIL THE TARGET AREA WAS REACHED. POSITION OF THE CANNULA WAS VERIFIED WITH AP AND LATERAL VIEWS. USING FLUOROSCOPIC AND ULTRASOUND GUIDANCE, I FOUND THE FOURTH TARGET LOCATED 3-4 CM ABOVE THE SUPERIOR BORDER OF THE PATELLA. ENTRY POINT WAS SELECTED LATERAL TO THE KNEE. WE MEASURED THE CORRESPONDING IMPEDANCES AND MOTOR RESPONSES INDICATED IN THE RADIOFREQUENCY WORK SHEET. POSITION OF THE CANNULA WAS VERIFIED AGAIN WITH AP AND LATERAL VIEWS. RADIOFREQUENCY WAS DONE AT EACH NERVE USING THE [employer] SYSTEM-- COOLED RADIOFREQUENCY-- WITH A SETTING AT THE MACHINE OF 60 DEGREES WITH A TARGET TISSUE TEMPERATURE OF 80 TO 90 DEGREES FOR A MINIMUM OF 150 SECONDS. AFTER RADIOFREQUENCY WAS DONE, THE PATIENT RECEIVED DEXAMETHASOME 2.5 MG AT EACH SITE. THERE WAS NO EVIDENCE OF PARESTHESIA OR BLOOD. THERE WERE NO COMPLICATIONS DURING THE PROCEDURE. THE PATIENT WAS SENT TO THE RECOVERY ROOM FOR OBSERVATION. ESTIMATED BLOOD LOSS WAS LESS THAN 5 ML. FLUOROSCOPY TIME WAS 4 MINUTES 10 SECONDS. POST PROCEDURE NOTE THE PATIENT WILL BE SEEN IN A FOLLOW UP IN THE NEXT FEW WEEKS. INSTRUCTIONS WERE GIVEN, QUESTIONS WERE ANSWERED, AND THE PATIENT EXPRESSED UNDERSTANDING AND AGREES WITH THE PLAN. I, HEIDI LEDEZMA, DOCUMENTED THE ABOVE INFORMATION ACTING A SCRIBE FOR DR. VAZQUEZ. I HAVE REVIEWED THE ABOVE DOCUMENT, WRITTEN BY HEIDI LEDEZMA, MALWARE ANALYST, AND I VERIFY THAT IT IS ACCURATE. PROCEDURE CODES 45768 DSTRJ NULYT AGT GNCLR NRV, MODIFIERS: LT DISPOSITION & COMMUNICATION FOLLOW UP FOLLOW UP WITH TRAINING PERSONNEL SUPERVISOR (REASON: POST LEFT KNEE COOL RADIOFREQUENCY) ELECTRONICALLY SIGNED BY RISHI VAZQUEZ MD, MD ON 07/04/2020 AT 04:40 PM EST DISCLAIMER : THIS IS A VISIT SUMMARY EXTRACTED FROM THE [employer] CHART. IT IS NOT A COPY OF THE [employer] PROGRESS NOTE. KIRILL
== END ==
LOC: M PAIN 13:00
PROVIDERS: ATTEND Anesthesiology
DX: M25.562 Pain in left knee (principal); M17.12 Unilateral primary osteoarthritis, left knee; Z98.890 Other specified postprocedural states; K21.9 Gastro-esophageal reflux disease without esophagitis; G25.81 Restless legs syndrome; Z87.891 Personal history of nicotine dependence; Z88.8 Allergy status to other drugs, medicaments and biological substances; E66.01 Morbid (severe) obesity due to excess calories; Z68.41 Body mass index [BMI] 40.0-44.9, adult; Z79.82 Long term (current) use of aspirin; Z79.899 Other long term (current) drug therapy
CPT/HCPCS: 64624; J1100; Q9967

== ENCOUNTER → 2020-09-18 | Outpatient (CLI) | payer OTHER ==
[~2020-09-18] MED LIST changes: -BUPIVACAINE HCL 0.25% 30ML VIAL As Ordered ONE; -ISOVUE-M 300 61% 15ML VIAL As Ordered ONE; -LIDOCAINE 1% SDV 30ML VIAL As Ordered ONE; -dexameTHASONE 10MG/1ML VIAL PRES.FREE (J1100 PER 1MG) As Ordered ONE; -diazePAM 5MG TABLET As Ordered ONE; -oxyCODONE 5MG TAB As Ordered ONE
--- NOTE | 2020-09-21 00:12 | ECWPNPC ---
PATIENT NAME: EL LUCAS : 1965 GENDER: MALE VISIT DATE: 09/18/2020 DISCHARGE DATE: 09/18/20 1119 VISIT LOCKED DATE TIME: PHYSICIAN: GABE BRAVO RESOURCE: GABE BRAVO REASON FOR APPOINTMENT 1. POST LEFT KNEE RADIOFREQUENCY HISTORY OF PRESENT ILLNESS DEPRESSION SCREENING: PHQ-2 (2015 EDITION) LITTLE INTEREST OR PLEASURE IN DOING THINGS?NOT AT ALL FEELING DOWN, DEPRESSED, OR HOPELESS?NOT AT ALL TOTAL SCORE0 55-YEAR-OLD MALE IN FOR POST LEFT KNEE RADIO FREQUENCY FOLLOW-UP. PATIENT FEELS THE PROCEDURE WAS HELPFUL RATING HIS PAIN PREPROCEDURE AT A 9-10 OUT OF 10 AND POSTPROCEDURE AT A 5 OUT OF 10. THE PROCEDURE CONTINUES TO HELP HIM TODAY AND HE RATES HIS PAIN AT A 5 OUT OF 10 AND DESCRIBES IT ACHING, BURNING, CONTINUOUS, AND STABBING. PATIENT DOES ADMIT THAT HE FEELS THE PROCEDURE DONE ON THE LEFT KNEE WAS LESS EFFECTIVE THAN THE ONE ON THE RIGHT. GENERAL: -. FALL RISK SCREENING: SCREENING : NO FALLS REPORTED IN THE LAST YEAR. PAIN SCREENING: PATIENT HAS A COMPLAINT OF ACUTE OR CHRONIC PAIN :YES LOCATION OF PAIN:KNEES LEFT KNEE INTENSITY OF PAIN (SCALE OF 1 TO 10):5 WHAT DOES YOUR PAIN FEEL LIKE:ACHING, BURNING, CONTINOUS, STABBING STATES HE FEELS" SHOCKS OF PAIN THAT RADIATE UP AND DOWN LEFT LEG AT TIMES " DURATION:CONTINOUS PAIN IS INCREASED BY:PROLONGED STANDING PAIN IS DECREASED BY:OTHERS PAIN CREAM NURSING NOTE: -. PAIN CENTER INTAKE QUESTIONS: DO YOU HAVE A HISTORY OF MRSA? :NO DO YOU TAKE A BLOOD THINNERS? :NO DO YOU HAVE ANY BLEEDING DISORDERS? :NO ANY NEW NUMBNESS OR WEAKNESS IN YOUR LEGS OR ARMS? :YES NEW NUMBNESS IN RIGHT KNEE THAT RADIATES UP RIGHT LEG, STATES HE HAS AN MRI OF RIGHT KNEE SCHEDULED FOR 10/01/2020 ANY PACEMAKER,DEFIBRILLATOR, OR DORSAL COLUMN STIMULATOR? :NO DO YOU HAVE ANY RASHES OR OPEN SORES? :NO ARE YOU ALLERGIC TO IV DYE? :NO ARE YOU DIABETIC? :NO ANY NEW PROBLEMS WITH YOUR MEDICATIONS? :NO HAVE YOU RECEIVED A VACCINE IN THE PAST 30 DAYS? :NO DO YOU PLAN TO RECEIVE A VACCINE IN THE NEXT 21 DAYS? :YES IF SO WHAT VACCINE AND WHEN? DUE TO RECEIVE COVID VACCINE 1ST DOSE SCHEDULED FOR 10/05/2020 2ND DOSE IS 11/02/2020 DO YOU NEED ANY PRESCRIPTION? :NO DO YOU TAKE ANY IMMUNOSUPPRESSIVE MEDICATIONS? :NO DO YOU HAVE ANY KIDNEY OR LIVER DISEASE? :NO IS THERE A CHANCE YOU COULD BE ? :NO ARE YOU BREAST FEEDING? :NO CURRENT MEDICATIONS TAKING ACETAMINOPHEN 500 MG CAPSULE 1 CAPSULE NEEDED ORALLY EVERY 6 HRS TAKING ASPIRIN 81 MG TABLET CHEWABLE DIRECTED ORALLY TAKING CARBOXYMETHYLCELLULOSE SOD PF 0.5 % SOLUTION DIRECTED OPHTHALMIC TAKING CETIRIZINE HCL 10 MG TABLET 1 TABLET ORALLY ONCE A DAY TAKING COLACE 100 MG CAPSULE 1 CAPSULE NEEDED ORALLY ONCE A DAY TAKING IRON 325 (65 FE) MG TABLET 1 TABLET ORALLY ONCE A DAY TAKING FLONASE ALLERGY RELIEF 50 MCG/ACT SUSPENSION 1 SPRAY IN EACH NOSTRIL NASALLY ONCE A DAY TAKING OMEPRAZOLE 40 MG CAPSULE DELAYED RELEASE 1 CAPSULE 30 MINUTES BEFORE MORNING MEAL ORALLY ONCE A DAY TAKING OXYCODONE HCL 10 MG TABLET 1 TABLET NEEDED ORALLY EVERY 6 HRS, NOTES: 07/01 2300 TAKING ROPINIROLE HCL 1 MG TABLET 1 TABLET 1 TO 3 HOURS BEFORE BEDTIME ORALLY ONCE A DAY, NOTES: ONE IN EVENING TAKING ROPINIROLE HCL 2 MG TABLET 1 TABLET 1 TO 3 HOURS BEFORE BEDTIME ORALLY ONCE A DAY, NOTES: ONE AT NIGHT TAKING VITAMIN C 250 MG TABLET CHEWABLE 1 TABLET ORALLY ONCE A DAY TAKING ROSUVASTATIN CALCIUM 40 MG TABLET 1 TABLET ORALLY ONCE A DAY MEDICATION LIST REVIEWED AND RECONCILED WITH THE PATIENT PAST MEDICAL HISTORY GERD RESTLESS LEG SYNDROME HIGH CHOLESTEROL BILAT KNEE PAIN BILAT SHOULDER PAIN LUMBOSACRAL OR CERVICAL STRAIN LOW IRON ALLERGIES DULOXETINE HCL: UNSURE - ALLERGY GABAPENTIN: IMPOTENCE - SIDE EFFECTS GEMFIBROZIL: UNSURE - ALLERGY SOCIAL HISTORY GENERAL: TOBACCO USE ARE YOU A:FORMER SMOKER HOW LONG HAS IT BEEN SINCE YOU LAST SMOKED?> 10 YEARS LATEX QUESTIONNAIRE LATEX ALLERGY : HAVE YOU EVER DEVELOPED ANY TYPE OF REACTION AFTER HANDLING LATEX PRODUCTS SUCH RUBBER GLOVES, CONDOMS, DIAPHRAGMS, BALLOONS, SOCKS, OR UNDERWEAR?NO LATEX ALLERGY : HAVE YOU EVER DEVELOPED ANY TYPE OF REACTION DURING OR AFTER DENTAL APPOINTMENT, VAGINAL/RECTAL EXAMINATION, SURGICAL PROCEDURE, OR ANY OTHER EXPOSURE?NO LATEX RISK : HAVE YOU EVER HAD ANY DIFFICULTY BREATHING OR HIVES AFTER EATING OR HANDLING ANY FRUITS, OR VEGETABLES; SUCH KIWI, BANANAS, STONE FRUITS, OR CHESTNUTSNO LATEX RISK : DO YOU HAVE A PREVIOUS PERSONAL HISTORY OF MORE THAN NINE SURGERIES, SPINA BIFIDA, OR REPEATED CATHERIZATIONS? YES - PLEASE INDICATE : > 9 SURGERIES LATEX RISK : ARE YOU FREQUENTLY EXPOSED TO LATEX PRODUCTS IN YOUR OCCUPATION?NO DATE ASKED : 09/18/2020 ALCOHOL USE: NO. ALCOHOL SCREENING DID YOU HAVE A DRINK CONTAINING ALCOHOL IN THE PAST YEAR?NO POINTS0 INTERPRETATIONNEGATIVE RECREATIONAL DRUG USE DRUG USE?NO CAFFEINE CAFFEINE USE?YES HOW OFTEN AND HOW MUCH? 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 DIET: REGULAR. MARITAL STATUS: . OTHERS AT HOME: SPOUSE. - HAS THE PATIENT BEEN EDUCATED REGARDING HIS/HER PLAN OF CARE?YES HAS THE PATIENT BEEN EDUCATED REGARDING PAIN, THE RISK FOR PAIN, THE IMPORTANCE OF EFFECTIVE PAIN MANAGEMENT, AND THE PAIN ASSESSMENT PROCESS?YES HOUSING: RENTS APARTMENT. ADVANCE DIRECTIVE ADVANCE DIRECTIVE DISCUSSED WITH PATIENT:YES PT DOES NOT HAVE ANY ADVANCED DIRECTIVES AND HE DECLINES INFORMATION ON HCP AT THIS TIME REVIEW OF SYSTEMS CONSTITUTIONAL: ANY RECENT FEVER NO . CHILLS NO . WEIGHT CHANGE OF UNKNOWN REASONS NO . GASTROENTEROLOGY: NEW UNEXPLAINABLE CHANGES IN BOWEL CONTROL NO . CONSTIPATION NO . GENITOURINARY: ANY NEW CHANGE IN BLADDER CONTROL? NO . NEUROLOGY: NEW ONSET DIZZINESS OR NEUROLOGICAL CHANGES NOT MENTIONED NO . NEW NUMBNESS OR PAIN PATTERNS NOT MENTIONED AND PERTINENT TO TODAY'S VISIT NO . CARDIOLOGY: NEW CHEST PRESSURE NO . PATIENT DENIES NO . RESPIRATORY: UNEXPLAINABLE COUGH NO . NEW SHORTNESS OF BREATH NO . VITAL SIGNS WT 208.8 LBS, HT 59 IN, BMI 42.17 INDEX, BP 113/57 MM HG, HR 74 /MIN, RR 18 /MIN, TEMP 97.6 F, OXYGEN SAT % 98%, SAFE IN ENV? (Y/N) YES, NA INITIALS ID [id number], REVIEWED BY: Gee WILCOX RN. EXAMINATION GENERAL EXAMINATION: GENERALNO ACUTE DISTRESS, WELL NOURISHED AND HYDRATED. PSYCHAPPROPRIATE MOOD AND AFFECT . LUNGS:CLEAR TO AUSCULTATION BILATERALLY, NO WHEEZES, RHONCHI, RALES. HEART:NO MURMURS, REGULAR RATE AND RHYTHM. ASSESSMENTS OTHER CHRONIC PAIN - G89.29 (PRIMARY) PAIN IN LEFT KNEE - M25.562, RISK: (NULL) TREATMENT OTHER CHRONIC PAIN PAIN PROCEDURE LOGDATE OF [id number]/19/2021ROCEDURE:LEFT KNEE COOL RADIOFREQUENCYAMOUNT OF PRE SEDATEVALIUM 10MG; OXYCODONE 10 MGRESULT:PRE -03/23 POST 10/21 CONTINUES TO HELP TODAY NOTES: 55-YEAR-OLD MALE IN FOR RADIOFREQUENCY OF THE LEFT KNEE FOLLOW-UP. GIVEN PRESENTING SYMPTOMS RECOMMEND FOLLOW-UP IN 2 MONTHS. PATIENT HAS EXPRESSED UNDERSTANDING OF AND WAS IN AGREEMENT WITH TREATMENT PLAN. GIVEN TIME TO ASK QUESTIONS AND EXPRESS CONCERNS. PROCEDURE CODES FA211 ESTABILISHED PATIENT [facility] CHARGE DISPOSITION & COMMUNICATION FOLLOW UP 2 MONTHS (REASON: KNEE PAIN ) ELECTRONICALLY SIGNED BY JAYSON CRUZ ON 09/20/2020 AT 08:45 AM EDT DISCLAIMER : THIS IS A VISIT SUMMARY EXTRACTED FROM THE [employer] CHART. IT IS NOT A COPY OF THE [employer] PROGRESS NOTE. KIRILL
== END ==
LOC: M PAIN 10:45
PROVIDERS: ATTEND Family Medicine
DX: G89.29 Other chronic pain (principal); M25.562 Pain in left knee; K21.9 Gastro-esophageal reflux disease without esophagitis; G25.81 Restless legs syndrome; Z87.891 Personal history of nicotine dependence; Z88.8 Allergy status to other drugs, medicaments and biological substances; E66.01 Morbid (severe) obesity due to excess calories; Z68.41 Body mass index [BMI] 40.0-44.9, adult; Z79.82 Long term (current) use of aspirin; Z79.899 Other long term (current) drug therapy

== ENCOUNTER → 2021-03-05 | Outpatient (CLI) | payer OTHER | LOC: M PAIN 14:30 | PROVIDERS: ATTEND Anesthesiology | DX: M25.511 Pain in right shoulder (principal); M79.10 Myalgia, unspecified site; K21.9 Gastro-esophageal reflux disease without esophagitis; G25.81 Restless legs syndrome; Z87.891 Personal history of nicotine dependence; Z88.8 Allergy status to other drugs, medicaments and biological substances; E66.01 Morbid (severe) obesity due to excess calories; Z68.41 Body mass index [BMI] 40.0-44.9, adult; Z79.82 Long term (current) use of aspirin; Z79.899 Other long term (current) drug therapy ==

== ENCOUNTER → 2021-03-06 | Outpatient (CLI) | payer OTHER ==
--- NOTE | 2021-03-06 10:53 | REPMRS ---
Patient History The patient states she had a clinical breast exam in January 2021. No known family history of cancer. No Hormone Replacement Therapy Indicated problem(s): left breast palpable abnormality for 4 months. Left breast lump for 3-4 months. Covid vaccine 10/05/20 left arm. 11/02/20 left arm. Patient has signed MRS History Sheet. Diagnostic Bilateral Mammo: March 06, 2021 - Exam #: [id number] Bilateral CC and MLO view(s) were taken. Technologist: RT Es Prior study comparison: December 26, 2019, digital mammo diagnostic bilateral, performed at [facility]. September 13, 2015, digital mammo diagnostic bilateral, performed at [facility]. FINDINGS: The breast tissue is almost entirely fat. Screening. Digital screening (2D) mammography was performed bilaterally in the CC and MLO projections. Additionally, breast tomosynthesis (3D mammography) was performed bilaterally in the CC and MLO projections. Todays exam was compared to the prior exam/exams. By history, the patient has no complaints of a palpable breast abnormality or other significant breast complaints. The Volpara volumetric breast density category is A, the breasts are almost entirely fatty. There is a radio-opaque triangle marking the location of a palpale abnormality in the left breast. The breasts are unchanged in size and shape. There are no armani-soft tissue densities or spiculated masses. There is no internal architectural distortion. There are no suspicious armani-calcific clusters. Skin thickening or nipple retraction is not present. IMPRESSION: BI-RADS Category 2- Benign Findings. There is no evidence of malignant alteration of the breasts. Followup examination recommended in one year. This mammogram was read with the assistance of [facility] [employer],an FDA approved computer aided detection system for mammography. Negative x-ray reports should not delay surgical consultation if a dominant or clinically suspicious mass is present. Not all breast cancers can be identified by mammography. Therefore, we recommend that you continue to perform regular breast self-examination and physical examination and then promptly contact your physician of any concerns or changes. Adenosis and dense breasts may obscure an underlying neoplasm. No significant changes when compared with prior studies. Assessment: BI-RADS/ACR category 2 mammogram. Benign Findings. Recommendation Clinical correlation of both breasts. Electronically Signed By: Mikey Hernandez MD 03/06/21 0234
== END ==
LOC: M WHC 09:54
PROVIDERS: ATTEND Internal Medicine
DX: Z12.31 Encounter for screening mammogram for malignant neoplasm of breast (principal); N63.42 Unspecified lump in left breast, subareolar
CPT/HCPCS: 77066; G0279

== ENCOUNTER → 2021-03-20 | Outpatient (CLI) | payer OTHER ==
--- NOTE | 2021-03-21 08:07 | REP ---
INDICATION: MYALGIA / RT SHOULDER PAIN. COMPARISON: None. TECHNIQUE: Coronal oblique T1 and fat suppressed T2. Sagittal oblique fat suppressed T2. Axial [id number] and T2 FLASH. FINDINGS: There is moderate hypertrophic degenerative change seen involving the acromioclavicular joint. The acromion process is type 2 with a spur arising from the inferior surface at the AC joint. There is patchy and linear T2 hyper signal seen in the supraspinatus tendon. There is no supraspinatus musculotendinous retraction. There is no supraspinatus atrophy. There is a small amount of fluid in the subacromial space. There is no glenohumeral joint effusion. A small amount of fluid is seen in the subcoracoid recess. There is patchy T2 hyper signal seen in the subscapularis tendon in slight patchy and linear T2 hyper signal seen in the infraspinatus tendon. The biceps tendon resides within the bicipital groove. There is no carine coracohumeral or coracoacromial ligamentous thickening. IMPRESSION: 1. There is supraspinatus tendinitis/tendinosis. 2. There is mild infraspinatus and subscapularis tendinitis/tendinosis. 3. AC joint DJD. 4. Fluid collections as described above. 5. Other findings as described above. <Electronically signed by Chandrakant Marshall > 03/21/21 1486
--- NOTE | 2021-03-22 09:18 | REPVR ---
PROCEDURE INFORMATION: Exam: MR Cervical Spine Without Contrast Exam date and time: 03/20/2021 5:57 PM Age: 56 years old Clinical indication: Numbness; Myalgia / RT shoulder pain TECHNIQUE: Imaging protocol: Multiplanar magnetic resonance images of the cervical spine without contrast. COMPARISON: No relevant prior studies available. FINDINGS: Vertebrae: Unremarkable. Spinal cord: Normal signal. Mild deformity of the cervical cord at C6/7. C2-C3: No significant disc disease. No significant spinal stenosis. C3-C4: There is disc desiccation. There is a moderate disc/osteophyte complex that flattens the ventral thecal sac. There is moderate bilateral uncovertebral joint arthropathy. There is mild bilateral neuroforaminal narrowing. C4-C5: There is disc desiccation. There is a moderate disc/osteophyte complex, partial toward the right, that flattens the ventral thecal sac and compromises the right neural foramen. There is bilateral uncovertebral joint arthropathy, worse on the right. There is moderate bilateral neural foraminal narrowing, right worse than left. There is mild spinal canal stenosis. C5-C6: There is disc desiccation. There is a moderate disc/osteophyte complex that flattens the ventral thecal sac. There is moderate bilateral uncovertebral joint arthropathy. There is mild bilateral neuroforaminal narrowing. C6-C7: There is grade 1 anterior spondylolisthesis at this level. There is disc desiccation. There is a moderate disc/osteophyte complex, partial toward the right, that flattens the ventral thecal sac and compromises the right neural foramen. There is a moderate right paracentral/subarticular disc protrusion. There is effacement of the ventral subarachnoid space and indentation of the ventral cervical cord. There is mild/moderate bilateral neural foraminal narrowing, right worse than left. There is mild spinal canal stenosis. C7-T1: No significant disc disease. No significant spinal stenosis. Soft tissues: Unremarkable. IMPRESSION: Multilevel degenerative changes causing varying degrees of spinal canal and neuroforaminal narrowing. Right-sided neural foraminal narrowing at C4/5 and C6/7. Please see details above. Electronically signed by: Sandip Olmstead On 03/22/2021 09:17:33 AM
== END ==
LOC: M RAD 15:49
PROVIDERS: ATTEND Anesthesiology
DX: M25.511 Pain in right shoulder (principal); M79.10 Myalgia, unspecified site

== ENCOUNTER → 2021-05-15 | Outpatient (CLI) | payer OTHER | LOC: M LABSMTC 10:56 | PROVIDERS: ATTEND Anesthesiology | DX: Z01.812 Encounter for preprocedural laboratory examination (principal); Z20.822 Contact with and (suspected) exposure to COVID-19 ==

== ENCOUNTER → 2021-05-20 | Outpatient (CLI) | payer OTHER ==
[~2021-05-20] MED LIST changes: +BUPIVACAINE HCL 0.25% 10ML VIAL As Ordered ONE; +BUPIVACAINE HCL 0.25% 30ML VIAL As Ordered ONE; -MONT10TA10 PO; +MONT10TA97 PO; +TRIAMCINOLONE ACETONIDE SUSP 40 MG/ML VIAL (J3301) As Ordered ONE; +diazePAM 5MG TABLET As Ordered ONE; +oxyCODONE 5MG TAB As Ordered ONE
== END ==
LOC: M PAIN 14:20
PROVIDERS: ATTEND Anesthesiology
DX: M79.18 Myalgia, other site (principal); K21.9 Gastro-esophageal reflux disease without esophagitis; G25.81 Restless legs syndrome; Z87.891 Personal history of nicotine dependence; Z88.8 Allergy status to other drugs, medicaments and biological substances; Z79.82 Long term (current) use of aspirin; Z79.899 Other long term (current) drug therapy
CPT/HCPCS: 20552; J3301

== ENCOUNTER → 2021-05-27 | Outpatient (CLI) | payer OTHER ==
[~2021-05-27] MED LIST changes: -BUPIVACAINE HCL 0.25% 10ML VIAL As Ordered ONE; -BUPIVACAINE HCL 0.25% 30ML VIAL As Ordered ONE; -TRIAMCINOLONE ACETONIDE SUSP 40 MG/ML VIAL (J3301) As Ordered ONE; -diazePAM 5MG TABLET As Ordered ONE; -oxyCODONE 5MG TAB As Ordered ONE
== END ==
LOC: M PAIN 15:30
PROVIDERS: ATTEND Anesthesiology
DX: M25.562 Pain in left knee (principal); M17.12 Unilateral primary osteoarthritis, left knee; M94.262 Chondromalacia, left knee; Z79.82 Long term (current) use of aspirin; Z79.899 Other long term (current) drug therapy; Z87.891 Personal history of nicotine dependence

== ENCOUNTER → 2021-07-10 | Outpatient (CLI) | payer OTHER | LOC: M PAIN 14:00 | PROVIDERS: ATTEND Nurse Practitioner Family | DX: G89.29 Other chronic pain (principal); M25.511 Pain in right shoulder; M79.10 Myalgia, unspecified site; K21.9 Gastro-esophageal reflux disease without esophagitis; G25.81 Restless legs syndrome; D50.9 Iron deficiency anemia, unspecified; Z87.891 Personal history of nicotine dependence; Z88.8 Allergy status to other drugs, medicaments and biological substances; Z79.82 Long term (current) use of aspirin; Z79.899 Other long term (current) drug therapy ==

== ENCOUNTER → 2021-08-29 | Outpatient (CLI) | payer OTHER | LOC: M PAIN 10:30 | PROVIDERS: ATTEND Anesthesiology | DX: M25.511 Pain in right shoulder (principal); G89.29 Other chronic pain; M79.2 Neuralgia and neuritis, unspecified; K21.9 Gastro-esophageal reflux disease without esophagitis; G25.81 Restless legs syndrome; Z88.8 Allergy status to other drugs, medicaments and biological substances; Z79.82 Long term (current) use of aspirin; Z79.899 Other long term (current) drug therapy ==

== ENCOUNTER → 2022-01-19 | Outpatient (CLI) | payer OTHER | LOC: M LABSMTC 09:12 | PROVIDERS: ATTEND Anesthesiology | DX: Z20.822 Contact with and (suspected) exposure to COVID-19 (principal) ==

== ENCOUNTER → 2022-02-19 | Outpatient (CLI) | payer OTHER ==
[~2022-02-19] MED LIST changes: +GASTROGRAFIN SOLUTION 30ML (Q9963) As Ordered ONE; +ISOVUE-370 76% 100ML VIAL As Ordered ONE; +ISOVUE-370 76% 25ML SYRINGE As Ordered ONE
== END ==
LOC: M RAD 13:22
PROVIDERS: ATTEND Internal Medicine Gastroenterology
DX: R63.4 Abnormal weight loss (principal); R10.13 Epigastric pain
CPT/HCPCS: 74178; Q9963; Q9967

== ENCOUNTER → 2022-03-16 | Outpatient (CLI) | payer OTHER ==
[~2022-03-16] MED LIST changes: -GASTROGRAFIN SOLUTION 30ML (Q9963) As Ordered ONE; -ISOVUE-370 76% 100ML VIAL As Ordered ONE; -ISOVUE-370 76% 25ML SYRINGE As Ordered ONE
== END ==
LOC: M PAIN 11:30
PROVIDERS: ATTEND Nurse Practitioner Family
DX: M79.10 Myalgia, unspecified site (principal); M25.519 Pain in unspecified shoulder; G89.29 Other chronic pain; G47.30 Sleep apnea, unspecified; K21.9 Gastro-esophageal reflux disease without esophagitis; G25.81 Restless legs syndrome; Z87.891 Personal history of nicotine dependence; Z88.8 Allergy status to other drugs, medicaments and biological substances; Z79.82 Long term (current) use of aspirin; Z79.899 Other long term (current) drug therapy

== ENCOUNTER → 2022-05-13 | Outpatient (CLI) | payer OTHER | LOC: M PAIN 10:45 | PROVIDERS: ATTEND Anesthesiology | DX: M79.18 Myalgia, other site (principal); M25.511 Pain in right shoulder; K21.9 Gastro-esophageal reflux disease without esophagitis; G25.81 Restless legs syndrome; Z87.891 Personal history of nicotine dependence; Z88.8 Allergy status to other drugs, medicaments and biological substances; Z79.82 Long term (current) use of aspirin; Z79.899 Other long term (current) drug therapy ==

== ENCOUNTER → 2022-06-21 | Outpatient (CLI) | payer OTHER ==
[~2022-06-21] MED LIST changes: +ASPI81TA26 PO; +CETI-25 PO; +CYAN500T14 PO; +OMEP40CA4 PO; +ROPI1TAB86 PO; +ROPI2TAB3 PO; +VITA-243 PO; +VITA100093 PO
== END ==
LOC: M LABSMTC 10:49
PROVIDERS: ATTEND Internal Medicine Gastroenterology
DX: Z01.812 Encounter for preprocedural laboratory examination (principal); Z20.822 Contact with and (suspected) exposure to COVID-19

== ENCOUNTER 2022-06-24 08:01 | Day surgery (SDC) | payer OTHER ==
[~2022-06-24] VITALS: Ht 175.3 cm; Wt 88.5 kg
[~2022-06-24 08:01] MED LIST changes: +NS 1,000 ML IV ONE
[2022-06-24] MEDS ORDERED: propofoL 200 MG/20 ML VIAL As Ordered ONE ×2 (09:01→09:16)
[2022-06-24] MEDS ORDERED: fentaNYL 100 MCG/2 ML INJECTION As Ordered ONE (09:01)
[2022-06-24] MEDS ORDERED: LIDOCAINE 2% 100MG/5ML SDV (FOR ANES.) As Ordered ONE (09:01)
[2022-06-24 10:15] VITALS: BP 135/83
== END 2022-06-24 10:22 | disposition home or self-care (01) ==
LOC: M OPP 08:01
PROVIDERS: ATTEND Internal Medicine Gastroenterology
DX: Z86.010 Personal history of colon polyps (principal); K64.0 First degree hemorrhoids; K57.30 Diverticulosis of large intestine without perforation or abscess without bleeding; K44.9 Diaphragmatic hernia without obstruction or gangrene; E78.5 Hyperlipidemia, unspecified; K21.9 Gastro-esophageal reflux disease without esophagitis; M06.9 Rheumatoid arthritis, unspecified; M19.90 Unspecified osteoarthritis, unspecified site; Z79.82 Long term (current) use of aspirin; Z79.899 Other long term (current) drug therapy
CPT/HCPCS: 43239; 88305; G0105

== ENCOUNTER → 2022-07-02 | Outpatient (CLI) | payer OTHER ==
[~2022-07-02] MED LIST changes: -NS 1,000 ML IV ONE
== END ==
LOC: M RAD 15:23
PROVIDERS: ATTEND Internal Medicine
DX: N43.3 Hydrocele, unspecified (principal); N50.819 Testicular pain, unspecified

== ENCOUNTER → 2022-07-27 | Outpatient (REF) | payer OTHER | LOC: M LAB REF 16:30 | PROVIDERS: ATTEND Surgery | DX: D22.62 Melanocytic nevi of left upper limb, including shoulder (principal); L82.0 Inflamed seborrheic keratosis ==

== ENCOUNTER → 2022-08-20 | Outpatient (CLI) | payer OTHER ==
[~2022-08-20] MED LIST changes: +TOPI-254 PO; -TOPI50TA9 PO
== END ==
LOC: M LABSMTC 11:52
PROVIDERS: ATTEND Anesthesiology
DX: Z01.812 Encounter for preprocedural laboratory examination (principal); Z20.822 Contact with and (suspected) exposure to COVID-19

== ENCOUNTER → 2022-08-21 | Outpatient (CLI) | payer OTHER ==
[~2022-08-21] MED LIST changes: +BUPIVACAINE HCL 0.25% 10ML VIAL As Ordered ONE; +BUPIVACAINE HCL 0.25% 30ML VIAL As Ordered ONE; +TRIAMCINOLONE ACETONIDE SUSP 40MG/ML 1ML VIAL As Ordered ONE
== END ==
LOC: M PAIN 13:45
PROVIDERS: ATTEND Anesthesiology
DX: M79.18 Myalgia, other site (principal); G89.29 Other chronic pain; K21.9 Gastro-esophageal reflux disease without esophagitis; G25.81 Restless legs syndrome; Z87.891 Personal history of nicotine dependence; Z88.8 Allergy status to other drugs, medicaments and biological substances; Z79.82 Long term (current) use of aspirin; Z79.899 Other long term (current) drug therapy

== ENCOUNTER → 2022-09-10 | Outpatient (CLI) | payer OTHER ==
[~2022-09-10] MED LIST changes: -BUPIVACAINE HCL 0.25% 10ML VIAL As Ordered ONE; -BUPIVACAINE HCL 0.25% 30ML VIAL As Ordered ONE; -TRIAMCINOLONE ACETONIDE SUSP 40MG/ML 1ML VIAL As Ordered ONE
== END ==
LOC: M PAIN 16:00
PROVIDERS: ATTEND Anesthesiology
DX: G89.29 Other chronic pain (principal); M79.18 Myalgia, other site; K21.9 Gastro-esophageal reflux disease without esophagitis; G25.81 Restless legs syndrome; Z87.891 Personal history of nicotine dependence; Z88.8 Allergy status to other drugs, medicaments and biological substances; Z79.82 Long term (current) use of aspirin; Z79.899 Other long term (current) drug therapy

== ENCOUNTER → 2022-09-29 | Outpatient (CLI) | payer OTHER ==
[~2022-09-29] MED LIST changes: +FLUT50SP17; -FLUTISP
== END ==
LOC: M PLAIMG 07:38
PROVIDERS: ATTEND Internal Medicine
DX: M75.81 Other shoulder lesions, right shoulder (principal); M51.36 Other intervertebral disc degeneration, lumbar region; M25.511 Pain in right shoulder; M54.50 Low back pain, unspecified

== ENCOUNTER → 2022-10-09 | Outpatient (CLI) | payer OTHER ==
[~2022-10-09] MED LIST changes: +BOTOX THERAPEUTIC 100 UNIT VIAL IM ONE
== END ==
LOC: M PAIN 11:00
PROVIDERS: ATTEND Anesthesiology
DX: M79.18 Myalgia, other site (principal); G89.29 Other chronic pain; K21.9 Gastro-esophageal reflux disease without esophagitis; G25.81 Restless legs syndrome; Z87.891 Personal history of nicotine dependence; Z88.8 Allergy status to other drugs, medicaments and biological substances; Z79.82 Long term (current) use of aspirin; Z79.899 Other long term (current) drug therapy
CPT/HCPCS: 20552; J0585

== ENCOUNTER → 2022-11-05 | Outpatient (CLI) | payer OTHER ==
[~2022-11-05] MED LIST changes: -BOTOX THERAPEUTIC 100 UNIT VIAL IM ONE
== END ==
LOC: M PAIN 14:00
PROVIDERS: ATTEND Nurse Practitioner Family
DX: M79.18 Myalgia, other site (principal); G89.29 Other chronic pain; K21.9 Gastro-esophageal reflux disease without esophagitis; G25.81 Restless legs syndrome; Z88.8 Allergy status to other drugs, medicaments and biological substances; Z79.82 Long term (current) use of aspirin; Z79.899 Other long term (current) drug therapy

== ENCOUNTER → 2022-11-19 | Outpatient (CLI) | payer OTHER | LOC: M PAIN 15:15 | PROVIDERS: ATTEND Nurse Practitioner Family | DX: M79.18 Myalgia, other site (principal); K21.9 Gastro-esophageal reflux disease without esophagitis; G25.81 Restless legs syndrome; E78.00 Pure hypercholesterolemia, unspecified; M25.561 Pain in right knee; M25.562 Pain in left knee; M25.511 Pain in right shoulder; M25.512 Pain in left shoulder; M43.16 Spondylolisthesis, lumbar region; Z87.891 Personal history of nicotine dependence; Z79.82 Long term (current) use of aspirin; Z79.891 Long term (current) use of opiate analgesic; Z79.899 Other long term (current) drug therapy; Z88.8 Allergy status to other drugs, medicaments and biological substances ==

== ENCOUNTER → 2022-12-04 | Outpatient (CLI) | payer OTHER | LOC: M SOG 07:51 | PROVIDERS: ATTEND Orthopaedic Surgery | DX: M25.511 Pain in right shoulder (principal) ==

== ENCOUNTER → 2023-01-05 | Outpatient (CLI) | payer OTHER ==
[~2023-01-05] MED LIST changes: -ROPI2TAB3 PO; +ROPI2TAB46 PO
== END ==
LOC: M PAIN 15:45
PROVIDERS: ATTEND Nurse Practitioner Family
DX: M79.10 Myalgia, unspecified site (principal); G89.29 Other chronic pain; K21.9 Gastro-esophageal reflux disease without esophagitis; G25.81 Restless legs syndrome; Z87.891 Personal history of nicotine dependence; Z88.8 Allergy status to other drugs, medicaments and biological substances; Z79.82 Long term (current) use of aspirin; Z79.899 Other long term (current) drug therapy

== ENCOUNTER → 2023-02-23 | Outpatient (CLI) | payer OTHER ==
[~2023-02-23] MED LIST changes: +TRIAMCINOLONE ACETONIDE SUSP 40MG/ML 1ML VIAL As Ordered ONE
== END ==
LOC: M PAIN 10:00
PROVIDERS: ATTEND Anesthesiology
DX: M79.18 Myalgia, other site (principal); G89.29 Other chronic pain; K21.9 Gastro-esophageal reflux disease without esophagitis; G25.81 Restless legs syndrome; Z87.891 Personal history of nicotine dependence; Z88.8 Allergy status to other drugs, medicaments and biological substances; Z79.82 Long term (current) use of aspirin; Z79.899 Other long term (current) drug therapy
CPT/HCPCS: 20553; J0665; J3301

== ENCOUNTER → 2023-04-07 | Outpatient (CLI) | payer OTHER ==
[~2023-04-07] MED LIST changes: -TRIAMCINOLONE ACETONIDE SUSP 40MG/ML 1ML VIAL As Ordered ONE
== END ==
LOC: M PAIN 13:30 → M TMPAIN 13:30
PROVIDERS: ATTEND Anesthesiology
DX: M79.10 Myalgia, unspecified site (principal); M54.50 Low back pain, unspecified; G89.29 Other chronic pain; M54.6 Pain in thoracic spine; Z87.891 Personal history of nicotine dependence; Z88.8 Allergy status to other drugs, medicaments and biological substances; Z79.82 Long term (current) use of aspirin; Z79.899 Other long term (current) drug therapy

== ENCOUNTER → 2023-07-07 | Outpatient (CLI) | payer OTHER ==
[~2023-07-07] MED LIST changes: -FLUT50SP17; +FLUTISP; +TOPI-21 PO; -TOPI-254 PO
== END ==
LOC: M PAIN 13:30
PROVIDERS: ATTEND Anesthesiology
DX: M79.18 Myalgia, other site (principal); M54.2 Cervicalgia; M54.50 Low back pain, unspecified; K21.9 Gastro-esophageal reflux disease without esophagitis; G25.81 Restless legs syndrome; E78.00 Pure hypercholesterolemia, unspecified; M25.561 Pain in right knee; M25.562 Pain in left knee; M43.16 Spondylolisthesis, lumbar region; Z87.891 Personal history of nicotine dependence; Z79.82 Long term (current) use of aspirin; Z79.891 Long term (current) use of opiate analgesic; Z79.899 Other long term (current) drug therapy; Z88.8 Allergy status to other drugs, medicaments and biological substances

== ENCOUNTER → 2023-08-05 | Outpatient (CLI) | payer OTHER | LOC: M PLARAD 12:45 | PROVIDERS: ATTEND Anesthesiology | DX: M51.26 Other intervertebral disc displacement, lumbar region (principal); M48.02 Spinal stenosis, cervical region ==

== ENCOUNTER → 2023-09-03 | Outpatient (CLI) | payer OTHER | LOC: M PAIN 16:15 | PROVIDERS: ATTEND Anesthesiology | DX: M25.511 Pain in right shoulder (principal); M75.91 Shoulder lesion, unspecified, right shoulder; M50.10 Cervical disc disorder with radiculopathy, unspecified cervical region; M54.50 Low back pain, unspecified; K21.9 Gastro-esophageal reflux disease without esophagitis; G25.81 Restless legs syndrome; E78.00 Pure hypercholesterolemia, unspecified; M51.36 Other intervertebral disc degeneration, lumbar region; Z87.891 Personal history of nicotine dependence; Z79.82 Long term (current) use of aspirin; Z79.891 Long term (current) use of opiate analgesic; Z79.899 Other long term (current) drug therapy; Z88.8 Allergy status to other drugs, medicaments and biological substances ==

== ENCOUNTER → 2023-11-02 | Outpatient (CLI) | payer OTHER ==
[~2023-11-02] MED LIST changes: +ISOVUE-M 300 61% 15ML VIAL As Ordered ONE; +LIDOCAINE 1% SDV 30ML VIAL As Ordered ONE; -ROSU40TA4 PO; +ROSU40TA63 PO; +TRIAMCINOLONE ACETONIDE SUSP 40MG/ML 1ML VIAL As Ordered ONE; +diazePAM 2 MG TAB As Ordered ONE
== END ==
LOC: M PAIN 11:00
PROVIDERS: ATTEND Anesthesiology
DX: M25.511 Pain in right shoulder (principal); M79.2 Neuralgia and neuritis, unspecified; G89.29 Other chronic pain; K21.9 Gastro-esophageal reflux disease without esophagitis; G25.81 Restless legs syndrome; E78.00 Pure hypercholesterolemia, unspecified; M25.561 Pain in right knee; M25.562 Pain in left knee; M25.512 Pain in left shoulder; M43.16 Spondylolisthesis, lumbar region; Z87.891 Personal history of nicotine dependence; Z79.82 Long term (current) use of aspirin; Z79.899 Other long term (current) drug therapy; Z88.8 Allergy status to other drugs, medicaments and biological substances
CPT/HCPCS: 64418; 71046; 76000; 77002; J0665; J3301; Q9967

== ENCOUNTER → 2023-12-21 | Outpatient (CLI) | payer OTHER ==
[~2023-12-21] MED LIST changes: -ISOVUE-M 300 61% 15ML VIAL As Ordered ONE; -LIDOCAINE 1% SDV 30ML VIAL As Ordered ONE; +ROPI1TA PO; -ROPI1TAB86 PO; -TRIAMCINOLONE ACETONIDE SUSP 40MG/ML 1ML VIAL As Ordered ONE; -diazePAM 2 MG TAB As Ordered ONE
== END ==
LOC: M PAIN 15:30
PROVIDERS: ATTEND Nurse Practitioner Family
DX: M51.16 Intervertebral disc disorders with radiculopathy, lumbar region (principal); G89.29 Other chronic pain; K21.9 Gastro-esophageal reflux disease without esophagitis; G25.81 Restless legs syndrome; E78.00 Pure hypercholesterolemia, unspecified; M25.561 Pain in right knee; M25.562 Pain in left knee; M25.511 Pain in right shoulder; M25.512 Pain in left shoulder; Z79.891 Long term (current) use of opiate analgesic; Z79.899 Other long term (current) drug therapy; Z88.8 Allergy status to other drugs, medicaments and biological substances

== ENCOUNTER → 2024-02-22 | Outpatient (CLI) | payer OTHER ==
[~2024-02-22] MED LIST changes: -ROSU40TA63 PO; +ROSU40TA81 PO
== END ==
LOC: M PAIN 14:30
PROVIDERS: ATTEND Nurse Practitioner Family
DX: M25.511 Pain in right shoulder (principal); G89.29 Other chronic pain; K21.9 Gastro-esophageal reflux disease without esophagitis; G25.81 Restless legs syndrome; E78.00 Pure hypercholesterolemia, unspecified; M25.561 Pain in right knee; M25.562 Pain in left knee; M25.512 Pain in left shoulder; M43.16 Spondylolisthesis, lumbar region; M51.36 Other intervertebral disc degeneration, lumbar region; Z87.891 Personal history of nicotine dependence; Z79.82 Long term (current) use of aspirin; Z79.891 Long term (current) use of opiate analgesic; Z79.899 Other long term (current) drug therapy; Z88.8 Allergy status to other drugs, medicaments and biological substances